=== PATIENT | female | born 1950 | race Caucasian/White ===

== ENCOUNTER → 2019-07-16 | Outpatient (CLI) | payer MEDICARE ==
--- NOTE | 2019-07-16 19:38 | MR ---
EXAMINATION TYPE: MR shoulder RT wo con DATE OF EXAM: 07/16/2019 COMPARISON: None HISTORY: Rt shoulder pain x 1 year, no trauma Multiplanar multiecho imaging of the right shoulder is performed with no contrast. The glenoid camryn appear intact. Subscapularis tendon appears intact. Biceps tendon is intact. There is thickening and abnormal increased signal throughout the large area of the supraspinatus tend on over the humeral head and at the greater tuberosity of the humerus. There is minor spurring at the AC joint without subacromial impingement. I see no focal bone destruct ion. There are small cystic changes at the insertion of the supraspinatus tendon on the greater tuber osity. On the T2 images there are numerous somewhat rounded high signal foci in the axilla. This could be mu ltiple varicose veins with slow flow. IMPRESSION: Full-thickness tear of the supraspinatus tendon without retraction. 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 Degenerative cyst formation and peritendon cystic changes at the greater tuberosity of the humerus. No fracture. Findings at the axilla are suggestive of multiple large varicose veins with slow flow. Axillary adeno josefina not excluded.
== END | disposition home or self-care (01) ==
LOC: RADMRIMAIN 15:32
PROVIDERS: ATTEND Orthopaedic Surgery
DX: M75.121 Complete rotator cuff tear or rupture of right shoulder, not specified as traumatic (principal); M19.011 Primary osteoarthritis, right shoulder

== ENCOUNTER → 2020-02-27 | Outpatient (CLI) | payer MEDICARE | END | disposition home or self-care (01) | LOC: LABWHC1 15:28 | PROVIDERS: ATTEND Family Medicine | DX: R50.9 Fever, unspecified (principal) | CPT/HCPCS: 87502; U0003; C9803 ==

== ENCOUNTER 2020-10-21 14:25 | Inpatient (IN) | payer MEDICARE ==
--- NOTE | 2020-10-21 15:16 | ED ---
General Adult HPI - General Chief complaint: Syncope Stated complaint: abd pain Time Seen by Provider: 10/21/20 15:02 Source: EMS Mode of arrival: EMS Limitations: altered mental status - History of Present Illness Initial comments: Is a 70-year-old female with a history of liver failure, interstitial lung disease, hypertension who presents emergent department for an episode of unresponsiveness. The patient resides at [facility] and was being brought over to her primary doctor's office by her nurse. The patient was reported at the doctor's office and had an episode where she became unresponsive. She was found on the ground. The patient eventually did come to and there are normal vital signs there however on arrival to the emergency department she was found to be severely hypotensive. Apparently the patient had an episode of emesis in route. The patient otherwise denies any acute complaints. She denies any chest pain or shortness of breath. No lightheadedness. No diarrhea. No dark or bloody stools. She initially complained of some abdominal discomfort however later when I repalpated her abdomen she stated that she did not have any pain. No dysuria or hematuria. No other complaints. - Related Data Home Medications Medication Instructions Recorded Confirmed Carvedilol [Coreg] 6.25 mg PO DAILY@0800 10/21/20 10/21/20 Ferrous Sulfate [Feosol] 325 mg PO DAILY@0800 10/21/20 10/21/20 Furosemide [Lasix] 40 mg PO BID@0600,1400 10/21/20 10/21/20 HYDROcodone/APAP 7.5-325MG [[place] 1 tab PO Q8H PRN 10/21/20 10/21/20 7.5-325] Ipratropium-Albuterol Nebulize 3 ml INHALATION RT-TID 10/21/20 10/21/20 [Duoneb 0.5 mg-3 mg/3 ml Soln] Lactose-Reduced Food [Ensure Plus] 120 ml PO TID@0600,0800,2100 10/21/20 10/21/20 Liquicel 30 ml PO BID@1200,1700 10/21/20 10/21/20 Maalox Plus Suspension 30 ml PO Q6H PRN 10/21/20 10/21/20 Magnesium Hydroxide [Milk of 7,200 mg PO Q48H PRN 10/21/20 10/21/20 Magnesia Concentrate] Ondansetron HCl [Zofran] 4 mg PO Q8H PRN 10/21/20 10/21/20 Pantoprazole Sodium [Protonix] 40 mg PO DAILY@0600 10/21/20 10/21/20 Rosuvastatin Calcium [Crestor] 5 mg PO HS 10/21/20 10/21/20 SILVER sulfADIAZINE Cream 1 applic TOPICAL BID 10/21/20 10/21/20 [Silvadene 1% Cream] Sennosides [Senokot] 17.2 mg PO HS 10/21/20 10/21/20 Spironolactone [Aldactone] 25 mg PO BID@0600,1400 10/21/20 10/21/20 Allergies Allergy/AdvReac Type Severity Reaction Status Date / Time amoxicillin trihydrate Allergy Vomiting Verified 10/21/20 16:12 [From Augmentin] erythromycin base Allergy Vomiting Verified 10/21/20 16:12 potassium clavulanate Allergy Vomiting Verified 10/21/20 16:12 [From Augmentin] Review of Systems ROS Statement: Those systems with pertinent positive or pertinent negative responses have been documented in the HPI. ROS Other: All systems not noted in ROS Statement are negative. Past Medical History Past Medical History: Asthma, Deep Vein Thrombosis (DVT), GERD/Reflux, Hyperten case Additional Past Medical History / Comment(s): SJORGEN'S SYN, gout, high d-dimers cat scans have always been negative for a PE, STATES "THEY DISAPPEAR BEFORE THEY ARE SEEN ON CT SCAN" arthritis, port wine birthmark ON LEFT ARM, STATES BLURRY VISION CHANDNI EYES POST CATARACT SX History of Any Multi-Drug Resistant Organisms: None Reported Past Surgical History: Heart Catheterization, Hysterectomy Additional Past Surgical History / Comment(s): CHANDNI CATARACTS Past Anesthesia/Blood Transfusion Reactions: No Reported Reaction Additional Past Anesthesia/Blood Transfusion Reaction / Comment(s): STATES HAD TROUBLE 06/11/14 POST OP HEART CATH "WOKE UP SWEATY AND COULDN'T TALK, HAD DOUBLE VISION" Past Psychological History: Anxiety Smoking Status: Smoker, current status unknown Past Alcohol Use History: None Reported Past Drug Use History: None Reported - Past Family History Father Family Medical History: Myocardial Infarction ([place]) General Exam - General Exam Comments Initial Comments: Constitutional: Awake alert Appears comfortable Head: Normocephalic atraumatic Eyes: no conjunctival injection No scleral icterus EOMI Neck: No JVD Supple Heart: Regular rate rhythm normal S1-S2 no murmurs Lungs: Clear to auscultation bilaterally No wheezing No rales Abdomen: Soft mildly distended, there seems to be some hepatomegaly nontender Extremities: Non edematous DP pulses intact Radial pulses intact Neuro: A&Ox3 No focal neurologic deficits Psych: Appropriate mood and affect Limitations: altered mental status Course Vital Signs 10/21/20 10/21/20 10/21/20 15:10 15:13 15:39 Temperature 96.8 F L Pulse Rate 70 72 75 Respiratory 16 16 16 Rate Blood Pressure 65/42 77/53 89/74 O2 Sat by Pulse 95 96 96 Oximetry 10/21/20 10/21/20 10/21/20 16:05 17:00 18:00 Temperature Pulse Rate 75 75 75 Respiratory 16 16 16 Rate Blood Pressure 93/57 72/52 90/61 O2 Sat by Pulse 97 97 97 Oximetry 10/21/20 10/21/20 18:33 19:25 Temperature 97.3 F L Pulse Rate 75 69 Respiratory 16 18 Rate Blood Pressure 97/63 92/59 O2 Sat by Pulse 97 98 Oximetry EKG Findings - EKG Comments: EKG Findings:: EKG showing no signs rhythm with a rate of 69. No abnormal ST 7 changes or T-wave inversions. QTC is 454. There is a first-degree AV block. No ectopy. Medical Decision Making - Medical Decision Making Is a 70-year-old female who presents emergency department for a syncopal episode. Patient was hypotensive on arrival however. Awake and alert and was not tachycardic. The patient was given 1 L of fluid up from which did improve her pressures however did go back down slightly. She was given another 500 mL bolus which improved her blood pressure until 90 systolic. The patient's heart rate is remained stable. She's been afebrile. There is no evidence for leukocytosis. She is chronically anemic and not any worse than normal. She does have evidence for dehydration with hyponatremia and increased creatinine and BUN. Chest x-ray showed possible pneumonia and thus the patient was started on antibiotics. Urinalysis was unremarkable. I suspect the patient's symptoms are more from dehydration hour she needs cardiac monitoring and also close monitoring for developing sepsis. At this time I doubt sepsis however. I spoke with Dr. Rodriguez who excepted the patient permission. She would like Dr. uDran on the case for the patient's history of liver failure. - Lab Data Result diagrams: 10/21/20 15:15 10/21/20 15:15 Lab Results 10/21/20 10/21/20 10/21/20 Range/Units 15:15 15:15 15:15 WBC 6.9 (3.8-10.6) k/uL RBC 3.28 L (3.80-5.40) m/uL Hgb 10.0 L (11.4-16.0) gm/dL Hct 30.7 L (34.0-46.0) % MCV 93.6 (80.0-100.0) fL MCH 30.4 (25.0-35.0) pg MCHC 32.5 (31.0-37.0) g/dL RDW 16.6 H (11.5-15.5) % Plt Count 343 (150-450) k/uL MPV 8.2 Neutrophils % 61 % Lymphocytes % 20 % Monocytes % 13 % Eosinophils % 1 % Basophils % 3 % Neutrophils # 4.2 (1.3-7.7) k/uL Lymphocytes # 1.4 (1.0-4.8) k/uL Monocytes # 0.9 (0-1.0) k/uL Eosinophils # 0.0 (0-0.7) k/uL Basophils # 0.2 (0-0.2) k/uL Manual Slide Review Performed Polychromasia Present Anisocytosis Slight Target Cells Present PT 11.1 (9.0-12.0) sec INR 1.1 (<1.2) APTT 28.5 (22.0-30.0) sec Sodium 121 L (137-145) mmol/L Potassium 5.6 H (3.5-5.1) mmol/L Chloride 95 L (98-107) mmol/L Carbon Dioxide 24 (22-30) mmol/L Anion Gap 2 mmol/L BUN 47 H (7-17) mg/dL Creatinine 2.28 H (0.52-1.04) mg/dL Est GFR (CKD-EPI)AfAm 24 (>60 ml/min/1.73 sqM) Est GFR (CKD-EPI)NonAf 21 (>60 ml/min/1.73 sqM) Glucose 104 H (74-99) mg/dL Lactic Ac Sepsis Rflx Plasma Lactic Acid Albar[place] (0.7-2.0) mmol/L Calcium 7.4 L (8.4-10.2) mg/dL Total Bilirubin 0.2 (0.2-1.3) mg/dL AST 45 H (14-36) U/L ALT 13 (4-34) U/L Alkaline Phosphatase 139 H (38-126) U/L Troponin I (0.000-0.034) ng/mL Total Protein 5.4 L (6.3-8.2) g/dL Albumin 1.7 L (3.5-5.0) g/dL Urine Color Urine Appearance (Clear) Urine pH (5.0-8.0) Ur Specific [place] (1.001-1.035) Urine Protein (Negative) Urine Glucose (UA) (Negative) Urine Ketones (Negative) Urine Blood (Negative) Urine Nitrite (Negative) Urine Bilirubin (Negative) Urine Urobilinogen (<2.0) mg/dL Ur Leukocyte Esterase (Negative) 10/21/20 10/21/20 10/21/20 Range/Units 15:15 15:15 15:45 WBC (3.8-10.6) k/uL RBC (3.80-5.40) m/uL Hgb (11.4-16.0) gm/dL Hct (34.0-46.0) % MCV (80.0-100.0) fL MCH (25.0-35.0) pg MCHC (31.0-37.0) g/dL RDW (11.5-15.5) % Plt Count (150-450) k/uL MPV Neutrophils % % Lymphocytes % % Monocytes % % Eosinophils % % Basophils % % Neutrophils # (1.3-7.7) k/uL Lymphocytes # (1.0-4.8) k/uL Monocytes # (0-1.0) k/uL Eosinophils # (0-0.7) k/uL Basophils # (0-0.2) k/uL Manual Slide Review Polychromasia Anisocytosis Target Cells PT (9.0-12.0) sec INR (<1.2) APTT (22.0-30.0) sec Sodium (137-145) mmol/L Potassium (3.5-5.1) mmol/L Chloride (98-107) mmol/L Carbon Dioxide (22-30) mmol/L Anion Gap mmol/L BUN (7-17) mg/dL Creatinine (0.52-1.04) mg/dL Est GFR (CKD-EPI)AfAm (>60 ml/min/1.73 sqM) Est GFR (CKD-EPI)NonAf (>60 ml/min/1.73 sqM) Glucose (74-99) mg/dL Lactic Ac Sepsis Rflx Y Plasma Lactic Acid [place] 2.5 H* (0.7-2.0) mmol/L Calcium (8.4-10.2) mg/dL Total Bilirubin (0.2-1.3) mg/dL AST (14-36) U/L ALT (4-34) U/L Alkaline Phosphatase (38-126) U/L Troponin I 0.020 (0.000-0.034) ng/mL Total Protein (6.3-8.2) g/dL Albumin (3.5-5.0) g/dL Urine Color Urine Appearance (Clear) Urine pH (5.0-8.0) Ur Specific [place] (1.001-1.035) Urine Protein (Negative) Urine Glucose (UA) (Negative) Urine Ketones (Negative) Urine Blood (Negative) Urine Nitrite (Negative) Urine Bilirubin (Negative) Urine Urobilinogen (<2.0) mg/dL Ur Leukocyte Esterase (Negative) 10/21/20 10/21/20 10/21/20 Range/Units 16:18 18:15 18:15 WBC (3.8-10.6) k/uL RBC (3.80-5.40) m/uL Hgb (11.4-16.0) gm/dL Hct (34.0-46.0) % MCV (80.0-100.0) fL MCH (25.0-35.0) pg MCHC (31.0-37.0) g/dL RDW (11.5-15.5) % Plt Count (150-450) k/uL MPV Neutrophils % % Lymphocytes % % Monocytes % % Eosinophils % % Basophils % % Neutrophils # (1.3-7.7) k/uL Lymphocytes # (1.0-4.8) k/uL Monocytes # (0-1.0) k/uL Eosinophils # (0-0.7) k/uL Basophils # (0-0.2) k/uL Manual Slide Review Polychromasia Anisocytosis Target Cells PT (9.0-12.0) sec INR (<1.2) APTT (22.0-30.0) sec Sodium (137-145) mmol/L Potassium (3.5-5.1) mmol/L Chloride (98-107) mmol/L Carbon Dioxide (22-30) mmol/L Anion Gap mmol/L BUN (7-17) mg/dL Creatinine (0.52-1.04) mg/dL Est GFR (CKD-EPI)AfAm (>60 ml/min/1.73 sqM) Est GFR (CKD-EPI)NonAf (>60 ml/min/1.73 sqM) Glucose (74-99) mg/dL Lactic Ac Sepsis Rflx Plasma Lactic Acid [place] 1.3 (0.7-2.0) mmol/L Calcium (8.4-10.2) mg/dL Total Bilirubin (0.2-1.3) mg/dL AST (14-36) U/L ALT (4-34) U/L Alkaline Phosphatase (38-126) U/L Troponin I <0.012 (0.000-0.034) ng/mL Total Protein (6.3-8.2) g/dL Albumin (3.5-5.0) g/dL Urine Color Yellow Urine Appearance Clear (Clear) Urine pH 5.0 (5.0-8.0) Ur Specific [place] 1.013 (1.001-1.035) Urine Protein Negative (Negative) Urine Glucose (UA) Negative (Negative) Urine Ketones Negative (Negative) Urine Blood Negative (Negative) Urine Nitrite Negative (Negative) Urine Bilirubin Negative (Negative) Urine Urobilinogen <2.0 (<2.0) mg/dL Ur Leukocyte Esterase Negative (Negative) Critical Care Time Critical Care Time: Yes Total Critical Care Time: 45 Critical Care Time: Critical care time was spent getting history from the patient and EMS. Examining the patient, ordering lab tests and treatments. Ordering radiographic studies. Reevaluation the patient after fluid boluses and other treatments. Interpreting labs and radiologic studies. Disposition Clinical Impression: Dehydration, KAELA (acute kidney injury), Hypotension, Pneumonia Disposition: ADMITTED IP TO THIS HOSP Condition: Serious Referrals: Lela Van MD [Primary Care Provider] - 1-2 days
[2020-10-21] MEDS: SODIUM CHLORIDE 0.9% 1,000 ML IV SCH (15:26)
[2020-10-21] MEDS: SODIUM CHLORIDE 0.9% 500 ML 500 ML IV SCH ×2 (15:26→17:29)
[2020-10-21 15:37] LABS: Albumin 1.7 g/dL (3.5-5.0); Calcium 7.4 mg/dL (8.4-10.2); INR 1.1 (<1.2); Partial Thromboplastin Time 28.5 sec (22.0-30.0); Potassium 5.6 mmol/L (3.5-5.1); Prothrombin Time 11.1 sec (9.0-12.0); Total Bilirubin 0.2 mg/dL (0.2-1.3); Total Protein 5.4 g/dL (6.3-8.2)
--- NOTE | 2020-10-21 15:48 | XR ---
EXAMINATION TYPE: XR chest 1V portable DATE OF EXAM: 10/21/2020 COMPARISON: Chest x-ray 06/07/2014 HISTORY: Hypotension TECHNIQUE: Single frontal view of the chest is obtained. FINDINGS: Patient is rotated. There is no evident pneumothorax. There is blunting the left costophre susy angle, obscured left hemidiaphragm. Cardiac mediastinal silhouette is within normal limits. Inter stitium is mildly increased. There are overlying leads. IMPRESSION: Possible lower lobe atelectasis versus interstitial edema, correlate to exclude pneumoni a, effusion may be present
[2020-10-21 15:52] LABS: Anisocytosis Slight; Basophils # (A) 0.2 k/uL (0-0.2); Basophils % (A) 3 %; Eosinophils % (A) 1 %; HCT 30.7 % (34.0-46.0); Lymphocytes # (A) 1.4 k/uL (1.0-4.8); Lymphocytes % (A) 20 %; MCH 30.4 pg (25.0-35.0); MCHC 32.5 g/dL (31.0-37.0); MCV 93.6 fL (80.0-100.0); Mean Platelet Volume 8.2; Monocytes # (A) 0.9 k/uL (0-1.0); Monocytes % (A) 13 %; Neutrophils # (A) 4.2 k/uL (1.3-7.7); Neutrophils % (A) 61 %; Platelet Count 343 k/uL (150-450); RBC 3.28 m/uL (3.80-5.40); RDW 16.6 % (11.5-15.5); WBC 6.9 k/uL (3.8-10.6)
[2020-10-21 16:06] LABS: Polychromasia Present; Target Cells Present
[2020-10-21 16:25] LABS: Appearance,Urine Clear (Clear); Bilirubin,Urine Negative (Negative); Blood,Urine Negative (Negative); Color,Urine Yellow; Glucose,Urine (UA) Negative (Negative); Ketones,Urine Negative (Negative); Leukocyte Esterase,Urine Negative (Negative); Nitrite,Urine Negative (Negative); Protein,Urine Negative (Negative); Specific Gravity,Urine 1.013 (1.001-1.035); Urobilinogen,Urine <2.0 mg/dL (<2.0)
[2020-10-21] MEDS ORDERED: SODIUM CHLORIDE 0.9% 500 ML 500 ML IV ONE (17:17)
[2020-10-21] MEDS ORDERED: cefTRIAXone IN SWFI 1,000 MG/10 ML SYRINGE IVP STA (18:25)
[2020-10-21] MEDS ORDERED: AZITHROMYCIN 500 MG in SODIUM CHLORIDE 0.9% 250 ML IVPB STA (18:25)
[2020-10-21] MEDS ORDERED: NALOXONE 0.4 MG/ML 1 ML VIAL IV PRN (19:34)
[2020-10-22] MEDS: SODIUM CHLORIDE 0.9% 1,000 ML IV SCH ×4 (01:09→22:52)
[2020-10-22] MEDS ORDERED: ONDANSETRON 4 MG TAB PO PRN (11:09)
[2020-10-22] MEDS ORDERED: MAG HYDROX/AL HYDROX/SIMETH 30 ML CUP PO PRN (11:09)
[2020-10-22] MEDS ORDERED: MAGNESIUM HYDROXIDE 2,400 MG/10 ML CUP PO PRN (11:09)
[2020-10-22] MEDS ORDERED: LIQUICEL PO SCH (12:00)
[2020-10-22] MEDS: IPRATROPIUM-ALBUTEROL 3 ML NEB INHALATION SCH ×2 (12:18→20:53)
[2020-10-22 12:49] LABS: AST 43 U/L (14-36); African American GFR (CKD) 37 (>60 ml/min/1.73 sqM); Albumin 1.7 g/dL (3.5-5.0); Albumin/Globulin Ratio 0.4; Alkaline Phosphatase 148 U/L (38-126); Anion Gap 4 mmol/L; Blood Urea Nitrogen 39 mg/dL (7-17); Calcium 7.1 mg/dL (8.4-10.2); Carbon Dioxide 20 mmol/L (22-30); Chloride 102 mmol/L (98-107); Globulin 3.8 g/dL; Glucose 79 mg/dL (74-99); Non-African American GFR(CKD) 32 (>60 ml/min/1.73 sqM); Sodium 126 mmol/L (137-145); Total Bilirubin 0.1 mg/dL (0.2-1.3); Total Protein 5.5 g/dL (6.3-8.2)
[2020-10-22 12:55] LABS: ALT 16 U/L (4-34)
--- NOTE | 2020-10-22 13:08 | P.HPIM ---
History of Present Illness H&P Date: 10/22/20 70 years old female patient of Dr. Vaughan with past medical history of gout, hypertension, Sjogren syndrome and suspected decompensated liver failure with the recurrent ascites seen almost monthly in the hospital. Her initial presentation was 04/2024 keep his amount of fluid remaining high-protein ascites. Patient was transferred to [facility] for further workup and underwent liver biopsy as well as diagnostic laparoscopy with biopsy of the peritumoral nodule which all came as negative. Malignancy was ruled out multiple times by cytology from patient's ascites fluid. She was hospitalized multiple times in June, July and has been requiring paracentesis almost 10-14 days. Patient is very well-known to the service and was last seen in the hospital on 09/14 underwent paracentesis on 09/15/ L were removed and patient was given some albumin. Patient was started on diuretic therapy and was sent to [facility]. Patient had a liver biopsy that suggestive fibrosis but no cirrhosis of liver. Multiple other etiology has been worked up and has come as negative. Patient's presentation is on assumed to be secondary to chronic liver disease. Patient was seen by Dr. Van outpatient and had a syncopal episode during her visit. She was sent to the ER for evaluation patient was found to be hypertensive. She had an episode of emesis in route. She denies any chest pain or shortness of breath. Vitals in the ER patient had a temp of 96.8 pulse 70 respiratory rate 16 blood pressure was 65/42. EKG was obtained that suggested first-degree AV block with no ectopy. No abdominal ST changes or T-wave inversions noted. Patient given 1-1/2 L of IV fluid with improvement of systolic pressures to the low 90s. Labs were reviewed patient has a WBC of 6.9 hemoglobin 10 which is s table, sodium 121 potassium 5.6 BUN 47 creatinine 2.28 chloride 95 bicarb 24 glucose 104 lactic acid was 2.5 troponin 0.0 2 repeat lactic acid after resuscitation is 1.3 urinalysis is negative for any infection. Chest x-ray suggestive of possible lower lobe infiltrate versus interstitial edema. Patient was seen in the ER today, denies any chest pain or shortness breath she does have some ongoing confusion would not be able to tell me whether she stays at home or at exact [facility] currently. Patient is a poor historian history obtained mostly from ER physician's note. On repeat assessment of patient's pressure, blood pressures improved 108/80 3 repeat Set pending from this morning. Patient has albumin of 1.7 ammonia less than 9. Covid was negative. Continue IV fluids at 1 30 mL/h patient's presentation appears to be related to a care in [facility]. Pneumonia appears unlikely to be chest x-ray could be obtained tomorrow. Stat labs including CBC CMP will be obtained. Gastroenterology co nsult placed. Patient's last paracentesis was 3 weeks ago. Review of Systems Constitutional: Denies chills, Denies fever, increased weakness Eyes: denies decreased vision, denies diplopia, denies discharge, denies pain Ears: deny: decreased hearing Ears, nose, mouth and throat: Denies dental pain, Denies headache, Denies nasal discharge, Denies nose pain Cardiovascular: Denies chest pain, Denies decreased exercise tolerance, Denies edema, Denies high blood pressure, Denies irregular heart beat, Denies palpitations, Denies paroxysmal nocturnal dyspnea, Denies rapid heart beat, Denies shortness of breath Respiratory: Denies congestion, Denies cough, Denies cough with sputum, Denies dyspnea, Denies home oxygen, Denies wheezing Gastrointestinal: Denies abdominal pain, Denies change in bowel habits, Denies coffee ground emesis, Denies early satiety, Denies excessive gas, Denies heartburn, Denies hematemesis, Denies hematochezia, endorses loss of appetite, Denies nausea, Denies vomiting endorses abdominal distention Genitourinary: Denies dysuria, Denies flank pain, Denies kidney stones, Denies menorrhagia, Denies urgency, Denies urinary frequency Musculoskeletal: Denies gait dysfunction, Denies limitation of motion, Denies morning stiffness, Denies muscle cramps Integumentary: Congenital rash, Denies wounds, Denies brittle nails, Denies change in hair/nails, Denies darkening of skin Neurological: Endorses balance difficulties, Denies change in speech, Denies double vision, Denies gait dysfunction, Denies loss of vision, Denies motor disturbance, Denies numbness, Denies paralysis, Denies paresthesias, Denies seizures Psychiatric: Denies anxiety, Denies depression Endocrine: Denies excessive sweating, Denies excessive thirst, Denies high blood sugars, Denies palpitations Hematologic/Lymphatic: Denies easy bruising, Denies lymphadenopathy Past Medical History Past Medical History: Asthma, Deep Vein Thrombosis (DVT), GERD/Reflux, Hypertension Additional Past Medical History / Comment(s): SJORGEN'S SYN, gout, high d-dimers cat scans have always been negative for a PE, STATES "THEY DISAPPEAR BEFORE THEY ARE SEEN ON CT SCAN" arthritis, port wine birthmark ON LEFT ARM, STATES BLURRY VISION CHANDNI EYES POST CATARACT SX History of Any Multi-Drug Resistant Organisms: None Reported Past Surgical History: Heart Catheterization, Hysterectomy Additional Past Surgical History / Comment(s): CHANDNI CATARACTS Past Anesthesia/Blood Transfusion Reactions: No Reported Reaction Additional Past Anesthesia/Blood Transfusion Reaction / Comment(s): STATES HAD TROUBLE 06/11/14 POST OP HEART CATH "WOKE UP SWEATY AND COULDN'T TALK, HAD DOUBLE VISION" Past Psychological History: Anxiety Smoking Status: Smoker, current status unknown Past Alcohol Use History: None Reported Past Drug Use History: None Reported - Past Family History Father Family Medical History: Myocardial Infarction ([place]) Medications and Allergies Home Medications Medication Instructions Recorded Confirmed Type Carvedilol [Coreg] 6.25 mg PO DAILY@0800 10/21/20 10/21/20 History Ferrous Sulfate [Feosol] 325 mg PO DAILY@0800 10/21/20 10/21/20 History Furosemide [Lasix] 40 mg PO BID@0600,1400 10/21/20 10/21/20 History HYDROcodone/APAP 7.5-325MG [Piru 1 tab PO Q8H PRN 10/21/20 10/21/20 History 7.5-325] Ipratropium-Albuterol Nebulize 3 ml INHALATION RT-TID 10/21/20 10/21/20 History [Duoneb 0.5 mg-3 mg/3 ml Soln] Lactose-Reduced Food [Ensure Plus] 120 ml PO TID@0600,0800,2100 10/21/20 10/21/20 History Liquicel 30 ml PO BID@1200,1700 10/21/20 10/21/20 History Maalox Plus Suspension 30 ml PO Q6H PRN 10/21/20 10/21/20 History Magnesium Hydroxide [Milk of 7,200 mg PO Q48H PRN 10/21/20 10/21/20 History Magnesia Concentrate] Ondansetron HCl [Zofran] 4 mg PO Q8H PRN 10/21/20 10/21/20 History Pantoprazole Sodium [Protonix] 40 mg PO DAILY@0600 10/21/20 10/21/20 History Rosuvastatin Calcium [Crestor] 5 mg PO HS 10/21/20 10/21/20 History SILVER sulfADIAZINE Cream 1 applic TOPICAL BID 10/21/20 10/21/20 History [Silvadene 1% Cream] Sennosides [Senokot] 17.2 mg PO HS 10/21/20 10/21/20 History Spironolactone [Aldactone] 25 mg PO BID@0600,1400 10/21/20 10/21/20 History Allergies Allergy/AdvReac Type Severity Reaction Status Date / Time amoxicillin trihydrate Allergy Vomiting Verified 10/21/20 16:12 [From Augmentin] erythromycin base Allergy Vomiting Verified 10/21/20 16:12 potassium clavulanate Allergy Vomiting Verified 10/21/20 16:12 [From Augmentin] Physical Exam Vitals: Vital Signs Temp Pulse Resp BP Pulse Ox 10/22/20 12:29 90 18 10/22/20 12:18 90 18 10/22/20 12:06 90 18 108/83 96 10/22/20 10:00 87 181 H 100/67 97 10/22/20 06:25 78 16 90/65 96 10/22/20 05:01 78 16 94/63 100 10/22/20 04:10 72 16 90/60 98 10/22/20 04:05 78/54 10/22/20 01:20 78 16 104/68 99 10/22/20 00:55 80 16 92/61 100 10/21/20 20:56 92/60 10/21/20 19:25 97.3 F L 69 18 92/59 98 10/21/20 18:33 75 16 97/63 97 10/21/20 18:00 75 16 90/61 97 10/21/20 17:00 75 16 72/52 97 10/21/20 16:05 75 16 93/57 97 10/21/20 15:39 75 16 89/74 96 10/21/20 15:13 72 16 77/53 96 10/21/20 15:10 96.8 F L 70 16 65/42 95 Intake and Output 10/21/20 10/22/20 10/22/20 22:59 06:59 14:59 Output Total 185 Balance -185 Output: Urine 185 Straight 185 Other: Weight 54.431 kg - Constitutional General appearance: cooperative, no acute distress, cachectic-appearing - EENT Eyes: anicteric sclerae, PERRLA, normal appearance ENT: hearing grossly normal - Neck Neck: no lymphadenopathy, normal ROM, no other, no rigidity, no stridor, no thyromegaly - Respiratory Respiratory: bilateral: CTA, negative: diminished, dullness, rales, rhonchi - Cardiovascular Rhythm: regular Heart sounds: normal: S1, S2 Abnormal Heart Sounds: no systolic murmur, no diastolic murmur, no rub, no S3 Gallop, no S4 Gallop, no click, 2+ pitting edema with flakiness involving the lower extremity - Gastrointestinal General gastrointestinal: normal bowel sounds, soft nontender with abdominal distention with bulging flanks noted. Positive for precaution. Shifting dullness is - Integumentary Integumentary: Port-wine rash involving the left arm present - Neurologic Neurologic: Oriented 3, alert appears weak - Musculoskeletal Musculoskeletal: strength equal bilaterally - Psychiatric Psychiatric: A&O x's 3, appropriate affect Results CBC & Chem 7: 10/21/20 15:15 10/21/20 15:15 Labs: Abnormal Lab Results - Last 24 Hours (Table) 10/21/20 10/21/20 10/21/20 Range/Units 15:15 15:15 15:15 RBC 3.28 L (3.80-5.40) m/uL Hgb 10.0 L (11.4-16.0) gm/dL Hct 30.7 L (34.0-46.0) % RDW 16.6 H (11.5-15.5) % Sodium 121 L (137-145) mmol/L Potassium 5.6 H (3.5-5.1) mmol/L Chloride 95 L (98-107) mmol/L BUN 47 H (7-17) mg/dL Creatinine 2.28 H (0.52-1.04) mg/dL Glucose 104 H (74-99) mg/dL Plasma Lactic Acid Albaro 2.5 H* (0.7-2.0) mmol/L Calcium 7.4 L (8.4-10.2) mg/dL AST 45 H (14-36) U/L Alkaline Phosphatase 139 H (38-126) U/L Total Protein 5.4 L (6.3-8.2) g/dL Albumin 1.7 L (3.5-5.0) g/dL Thrombosis Risk Factor Assmnt - DVT/VTE Prophylaxis DVT/VTE Prophylaxis: Pharmacologic Prophylaxis ordered Assessment and Plan Plan: #1 hypotension likely secondary to hypovolemic shock from volume deficit. Can you IV fluids at 1 30 mL/h. Hold diuretics. #2 acute kidney injury secondary to ATN over chronic kidney disease stage III hold Aldactone hold Lasix. Baseline creatinines 1.6 Continue IV fluids at 1 30 mL per hour. Hepatorenal syndrome is a possibility. Repeat CMP ordered. Avoid nephrotoxic agents #3 hyponatremia secondary to volume deficit. Continue IV fluids at this point. Urine sodium and urine osmolarity can be ordered. #4 hyperkalemia secondary to acute kidney injury. Repeat CMP ordered. #5 decompensated liver failure with recurrent ascitis likely secondary to chronic liver disease. Liver biopsy and peritoneal biopsy has been negative. Cytology negative. TB negative. SAAG less than 1.1 with high protein ascites. Hold Aldactone and Lasix. Pain management with Piru. #6. Recurrent ascites. Last paracentesis 3 weeks ago. Patient does have peritoneal fluid but will hold paracentesis until patient is distended. #7 atherosclerotic heart disease continue Coreg along with atorvastatin. 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 Continue daily CBC. 10 chronic depression not on any medication currently #11 constipation hold stool softener at this moment. #12 CODE STATUS full code #13 GI prophylaxis on Protonix #14 DVT prophylaxis with heparin every 12 #15 disposition patient needs to be in the hospital at least 1-2 inpatient nights
[2020-10-22 13:09] LABS: Anisocytosis Slight; HCT 35.3 % (34.0-46.0); HGB 10.7 gm/dL (11.4-16.0); Hypochromasia Moderate; MCH 29.7 pg (25.0-35.0); MCHC 30.3 g/dL (31.0-37.0); MCV 98.2 fL (80.0-100.0); Macrocytosis Slight; Mean Platelet Volume 8.4; Platelet Count 363 k/uL (150-450); RBC 3.59 m/uL (3.80-5.40); WBC 6.4 k/uL (3.8-10.6)
[2020-10-22] MEDS: ATORVASTATIN 10 MG TAB PO SCH (19:56)
[2020-10-22] MEDS ORDERED: NON FORMULARY DRUG (Lactose-Reduced Food [Ensure Plus] 237 ML Liquid) PO SCH (21:00)
--- NOTE | 2020-10-22 22:50 | P.CONS ---
History of Present Illness - Reason for Consult Consult date: 10/22/20 Ascites Requesting physician: Funmi Fischer - Chief Complaint Altered mental status - History of Present Illness 70-year-old female with a medical history significant for gout, hypertension, Sjogren syndrome and refractory ascites suspected to be secondary to decompensated cryptogenic cirrhosis who presented to the hospital due to altered mental status. The patient has had extensive evaluation in the past since her initial presentation 04/2020 when she presented with fluid overload and paracentesis was significant for high-protein ascites. Previous workup has been negative for any evidence of malignancy including on cytology from ascitic fluid. On initial evaluation she was transferred to [facility] workup included liver biopsy as well as laparoscopy with biopsy of a peritoneal nodule which was negative at that time and then on repeat biopsy later with the surgical service locally. She has been requiring paracentesis every 10-14 days and has been initiated on diuretic therapy with Lasix 40 mg twice daily and Aldactone 25 mg twice daily. Prior liver biopsy was suggestive of fibrosis without evidence of cirrhosis however patient has been receiving treatment for suspected cirrhosis of liver. On current presentation the patient was sent to [facility] ER for evaluation of altered mentation and hypotension. She was found to be hyponatremic on presentation with a sodium of 121 with a creatinine of 2.28 chest x-ray was suggestive of possible lower lobe infiltrate versus pleural effusion. Patient currently denies any fevers or chills. She is receiving broad-spectrum antibiotic therapy. Last paracentesis was 3 weeks ago. Review of Systems REVIEW OF SYSTEMS: CONSTITUTIONAL: Denies any fevers, chills, or fatigue but does report some weekend and association with fluid overload. CARDIOVASCULAR: Denies any chest pain, palpitations high or low blood pressures RESPIRATORY: Denies any shortness of breath, hemoptysis or cough. GENITOURINARY: No dysuria or hematuria. MUSCULOSKELETAL: No weakness reported. SKIN: Denies any new rashes or lesions, jaundice or pallor. PSYCHIATRIC: Denies any depression or anxiety. NEUROLOGY: Denies headache, denies any new focal deficits. EARS/NOSE/THROAT: No recent hearing change, congestion, nasal discharge or sore throat. EYES: No pain in eyes, discharge or change in vision. GASTROINTESTINAL: As per HPI. Past Medical History Past Medical History: Asthma, Deep Vein Thrombosis (DVT), GERD/Reflux, Hyperlipidemia, Hypertension, Osteoarthritis (OA) Additional Past Medical History / Comment(s): Sjorgen's syndrome, sicca syndrome with lung involvement, chronic hepatic failure/ascities with multiple paracentesis/worked up at [facility], abdominal pain, gout, past elevated Ddimer with negative cat scans, ASHD, iron anemia, constipation History of Any Multi-Drug Resistant Organisms: None Reported Past Surgical History: Heart Catheterization, Hysterectomy, Orthopedic Surgery Additional Past Surgical History / Comment(s): Liver bx/diagnostic laparoscopy peritumoral nodule bx both benign, excision gouty deposit 4th R toe, bilateral cataract removals Past Anesthesia/Blood Transfusion Reactions: No Reported Reaction Additional Past Anesthesia/Blood Transfusion Reaction / Comm: Post cath woke diaphoretic with vision change and unable to speak. Increased anxiety prior to surgery. Smoking Status: Former smoker - Past Family History Father Family Medical History: Myocardial Infarction ([place]) Medications and Allergies Home Medications Medication Instructions Recorded Confirmed Type Carvedilol [Coreg] 6.25 mg PO DAILY@0800 10/21/20 10/21/20 History Ferrous Sulfate [Feosol] 325 mg PO DAILY@0800 10/21/20 10/21/20 History Furosemide [Lasix] 40 mg PO BID@0600,1400 10/21/20 10/21/20 History HYDROcodone/APAP 7.5-325MG [Avinger 1 tab PO Q8H PRN 10/21/20 10/21/20 History 7.5-325] Ipratropium-Albuterol Nebulize 3 ml INHALATION RT-TID 10/21/20 10/21/20 History [Duoneb 0.5 mg-3 mg/3 ml Soln] Lactose-Reduced Food [Ensure Plus] 120 ml PO TID@0600,0800,2100 10/21/20 10/21/20 History Liquicel 30 ml PO BID@1200,1700 /06/1210/21/20 History Maalox Plus Suspension 30 ml PO Q6H PRN 10/21/20 10/21/20 History Magnesium Hydroxide [Milk of 7,200 mg PO Q48H PRN 10/21/20 10/21/20 History Magnesia Concentrate] Ondansetron HCl [Zofran] 4 mg PO Q8H PRN 10/21/20 10/21/20 History Pantoprazole Sodium [Protonix] 40 mg PO DAILY@0600 10/21/20 10/21/20 History Rosuvastatin Calcium [Crestor] 5 mg PO HS 10/21/20 10/21/20 History SILVER sulfADIAZINE Cream 1 applic TOPICAL BID 10/21/20 10/21/20 History [Silvadene 1% Cream] Sennosides [Senokot] 17.2 mg PO HS 10/21/20 10/21/20 History Spironolactone [Aldactone] 25 mg PO BID@0600,1400 10/21/20 10/21/20 History Allergies Allergy/AdvReac Type Severity Reaction Status Date / Time amoxicillin trihydrate Allergy Vomiting Verified 10/21/20 16:12 [From Augmentin] erythromycin base Allergy Vomiting Verified 10/21/20 16:12 potassium clavulanate Allergy Vomiting Verified 10/21/20 16:12 [From Augmentin] Physical Exam Vitals: Vital Signs Temp Pulse Resp BP Pulse Ox 10/22/20 16:00 98.0 F 91 16 118/67 98 10/22/20 12:29 90 18 10/22/20 12:18 90 18 10/22/20 12:06 90 18 108/83 96 10/22/20 10:00 87 181 H 100/67 97 10/22/20 06:25 78 16 90/65 96 10/22/20 05:01 78 16 94/63 100 10/22/20 04:10 72 16 90/60 98 10/22/20 04:05 78/54 10/22/20 01:20 78 16 104/68 99 10/22/20 00:55 80 16 92/61 100 10/21/20 20:56 92/60 10/21/20 19:25 97.3 F L 69 18 92/59 98 10/21/20 18:33 75 16 97/63 97 Intake and Output 10/22/20 10/22/20 10/22/20 06:59 14:59 22:59 Other: Weight 54.431 kg On physical examination, patient appears comfortable in no apparent distress. HEAD: Normocephalic, atraumatic. EYES: No scleral icterus. No conjunctival injection. MOUTH: No lesions, tongue midline. NECK: Trachea midline, no gross abnormalities. CHEST: Decreased air entry in all lung jenkins. HEART: S1-S2 appreciated. ABDOMEN: Soft, moderately distended. Bowel sounds are positive. No organomegaly. No guarding or rigidity. EXTREMITIES: Bilateral pedal edema. SKIN: No rashes, no jaundice. NEUROLOGIC: Alert and oriented person and place. No focal deficits. Results CBC & Chem 7: 10/22/20 11:55 10/22/20 11:55 Labs: Abnormal Lab Results - Last 24 Hours (Table) 10/22/20 10/22/20 Range/Units 11:55 11:55 RBC 3.59 L (3.80-5.40) m/uL Hgb 10.7 L (11.4-16.0) gm/dL MCHC 30.3 L (31.0-37.0) g/dL RDW 17.0 H (11.5-15.5) % Sodium 126 L (137-145) mmol/L Carbon Dioxide 20 L (22-30) mmol/L BUN 39 H (7-17) mg/dL Creatinine 1.62 H (0.52-1.04) mg/dL Calcium 7.1 L (8.4-10.2) mg/dL Total Bilirubin 0.1 L (0.2-1.3) mg/dL AST 43 H (14-36) U/L Alkaline Phosphatase 148 H (38-126) U/L Total Protein 5.5 L (6.3-8.2) g/dL Albumin 1.7 L (3.5-5.0) g/dL Chest x-ray: report reviewed Assessment and Plan (1) Ascites Narrative/Plan: 70-year-old female with multiple medical comorbidities including refractory ascites requiring paracentesis every 10-14 days since initial presentation in 2019. Extensive evaluation including cytology performed on ascites, biopsy of peritoneal nodule negative for malignant process. Patient has had a low SAAG, high-protein ascites and evidence of fibrosis on liver biopsy not consistent with cirrhosis, however decompensated liver disease as been suspected and the patient has been treated with diuretic therapy. Unclear etiology of altered mental status may be related to hyponatremia, intravascular volume depletion, would recommend paracentesis with fluid studies to rule out SBP, or may be secondary to another process. Current Visit: Yes Status: Acute Code(s): R18.8 - OTHER ASCITES SNOMED Code(s): 880212334 (2) Altered mental status Current Visit: Yes Status: Acute Code(s): R41.82 - ALTERED MENTAL STATUS, UNSPECIFIED SNOMED Code(s): 842395195 (3) KAELA (acute kidney injury) Current Visit: Yes Status: Acute Code(s): N17.9 - ACUTE KIDNEY FAILURE, UNSPECIFIED SNOMED Code(s): 41268790 (4) Hypotension Current Visit: Yes Status: Acute Code(s): I95.9 - HYPOTENSION, UNSPECIFIED SNOMED Code(s): 81803268 Plan: Supportive care Okay for diet as tolerated Diuretic therapy currently being held in the setting of acute kidney injury, patient is on home Lasix and Aldactone Ammonia level ordered and within normal limits making encephalopathy less likely as a cause of her altered mental status Blood pressure currently improved but may be a candidate for Midodrine therapy if hypotension recurs on initiation of diuretic therapy May benefit from nephrology consultation given hyponatremia, acute kidney injury and hypotension for further diuretic management Recommendations I'll consult for paracentesis with fluid studies to rule out SPP Continue broad-spectrum antibiotic therapy Thank you for allowing us to be to speak in the care of the patient
[2020-10-23] MEDS: SODIUM CHLORIDE 0.9% 1,000 ML IV SCH ×2 (01:58→11:58)
[2020-10-23] MEDS: HYDROcodone/APAP 7.5-325MG 1 EACH TAB PO PRN ×2 (02:49→21:17)
[2020-10-23] MEDS: PANTOPRAZOLE 40 MG TABLET PO SCH (05:41)
[2020-10-23 07:02] LABS: ALT 9 U/L (4-34); AST 38 U/L (14-36); African American GFR (CKD) 43 (>60 ml/min/1.73 sqM); Albumin 1.6 g/dL (3.5-5.0); Albumin/Globulin Ratio 0.5; Alkaline Phosphatase 133 U/L (38-126); Anion Gap 3 mmol/L; Blood Urea Nitrogen 37 mg/dL (7-17); Calcium 7.1 mg/dL (8.4-10.2); Carbon Dioxide 19 mmol/L (22-30); Chloride 107 mmol/L (98-107); Globulin 3.5 g/dL; Non-African American GFR(CKD) 37 (>60 ml/min/1.73 sqM); Potassium 4.7 mmol/L (3.5-5.1); Sodium 129 mmol/L (137-145); Total Bilirubin 0.1 mg/dL (0.2-1.3); Total Protein 5.1 g/dL (6.3-8.2)
[2020-10-23 07:04] LABS: Glucose 41 mg/dL (74-99)
[2020-10-23 07:32] LABS: Glucose,Whole Blood 49 mg/dL (75-99)
[2020-10-23 08:15] LABS: Glucose,Whole Blood 72 mg/dL (75-99)
[2020-10-23] MEDS: FERROUS SULFATE 325 MG TAB PO SCH (08:47)
[2020-10-23] MEDS: IPRATROPIUM-ALBUTEROL 3 ML NEB INHALATION SCH ×3 (08:55→20:27)
[2020-10-23 09:32] LABS: HCT 29.4 % (37.2-46.3); HGB 9.5 g/dL (12.0-15.0); MCH 30.2 pg (27.0-32.0); MCHC 32.3 g/dL (32.0-37.0); MCV 93.3 fL (80.0-97.0); Mean Platelet Volume 11.1 fL (9.5-12.2); Platelet Count 326 X 10*3/uL (140-440); RBC 3.15 X 10*6/uL (4.10-5.20); RDW 18.7 % (11.5-14.5); WBC 8.05 X 10*3/uL (4.50-10.00)
--- NOTE | 2020-10-23 11:15 | P.PN ---
Subjective Progress Note Date: 10/23/20 HISTORY OF PRESENT ILLNESS 70 years old female patient of Dr. Vaughan with past medical history of gout, hypertension, Sjogren syndrome and suspected decompensated liver failure with the recurrent ascites seen almost monthly in the hospital. Her initial presentation was 04/2024 keep his amount of fluid remaining high-protein ascites. Patient was transferred to [facility] for further workup and underwent liver biopsy as well as diagnostic laparoscopy with biopsy of the peritumoral nodule which all came as negative. Malignancy was ruled out multiple times by cytology from patient's ascites fluid. She was hospitalized multiple times in June, July and has been requiring paracentesis almost 10-14 days. Patient is very well-known to the service and was last seen in the hospital on 09/14 underwent paracentesis on 09/15/ L were removed and patient was given some albumin. Patient was started on diuretic therapy and was sent to [facility]. Patient had a liver biopsy that suggestive fibrosis but no cirrhosis of liver. Multiple other etiology has been worked up and has come as negative. Patient's presentation is on assumed to be secondary to chronic liver disease. Patient was seen by Dr. Van outpatient and had a syncopal episode during her visit. She was sent to the ER for evaluation patient was found to be hypertensive. She had an episode of emesis in route. She denies any chest pain or shortness of breath. Vitals in the ER patient had a temp of 96.8 pulse 70 respiratory rate 16 blood pressure was 65/42. EKG was obtained that suggested first-degree AV block with no ectopy. No abdominal ST changes or T-wave inversions noted. Patient given 1-1/2 L of IV fluid with improvement of systolic pressures to the low 90s. Labs were reviewed patient has a WBC of 6.9 hemoglobin 10 which is stable, sodium 121 potassium 5.6 BUN 47 creatinine 2.28 chloride 95 bicarb 24 glucose 104 lactic acid was 2.5 troponin 0.0 2 repeat lactic acid after resus citation is 1.3 urinalysis is negative for any infection. Chest x-ray suggestive of possible lower lobe infiltrate versus interstitial edema. Patient was seen in the ER today, denies any chest pain or shortness breath she does have some ongoing confusion would not be able to tell me whether she stays at home or at exact [facility] currently. Patient is a poor historian history obtained mostly from ER physician's note. On repeat assessment of patient's pressure, blood pressures improved 108/80 3 repeat Set pending from this morning. Patient has albumin of 1.7 ammonia less than 9. Covid was negative. Continue IV fluids at 1 30 mL/h patient's presentation appears to be related to a care in [facility]. Pneumonia appears unlikely to be chest x-ray could be obtained tomorrow. Stat labs including CBC CMP will be obtained. Gastroenterology consult placed. Patient's last paracentesis was 3 weeks ago. 10/23: Patient is seen today in follow-up. She has been seen by GI with recommendations for diet, midodrine for hypotension, possible nephrology consult for hyponatremia which is improving and paracentesis. We will add in paracentesis for interventional radiology. Patient is not currently on antibiotics. Repeat blood work reveals WBC 8.05. Hemoglobin 9.5, platelet count 326. Sodium 129, potassium 4.7, chloride 107, CO2 19, BUN 37 creatinine 1.43. Blood sugar this morning 41. Patient is not on antidiabetic medications. Calcium 7.1, total bilirubin 0.1, AST 38, ALT 9, alkaline phosphatase 133. Cultures no growth after 24 hours. A chest x-ray will be ordered to check for pneumonia. Patient is stating that she doesn't feel any better today. She states she feels terrible. She continues to have nausea and she feels that her belly is bigger and needs to have a paracentesis. REVEIW OF SYSTEMS Constitutional: No fever, no chills, no night sweats. No weight change. Reports weakness, Reports fatigue Reports lethargy. No daytime sleepiness. EENT: No headache. No blurred vision or double vision, no loss of vision. No loss of Hearing, no ringing in the ears, no dizziness. No nasal drainage or congestion. No epistaxis. No sore throat. Lungs: No shortness of breath, cough, no sputum production. No wheezing. Cardiovascular: No chest pain, no lower extremity edema. No palpitations. No paroxysmal nocturnal dyspnea. No orthopnea. No lightheadedness or dizziness. No syncopal episodes. Abdominal: No abdominal pain. No nausea, vomiting. No diarrhea. No constipation. No bloody or tarry stools.. No loss of appetite. Genitourinary: No dysuria, increased frequency, urgency. No urinary retention. Musculoskeletal: No myalgias. Reports muscle weakness, Reports gait dysfunction, no frequent falls. No back pain. No neck pain. Integumentary: No wounds, congenital rash. No unusual bruising. No change in hair or nails. Neurologic: No aphasia. No facial droop. No change in mentation. No head injury. No headache. No paralysis. No paresthesia. Psychiatric: No depression. No anxiety. No mood swings. Endocrine: No abnormal blood sugars. PHYSICAL EXAMINATION Gen: This is a 70-year-old female patient. She is resting in bed and appears to be comfortable at rest. HEENT: Head is atraumatic, normocephalic. Pupils equal, round. Sclerae is anicteric. NECK: Supple. No JVD. No lymphadenopathy. No thyromegaly. LUNGS: Clear to auscultation. No wheezes or rhonchi. No intercostal retractions. HEART: Regular rate and rhythm. No murmur. ABDOMEN: Positive ascites increased distention from yesterday Soft. Bowel sounds are present. No masses. No tenderness. EXTREMITIES: No pedal edema. No calf tenderness. port wine rash to the left arm. NEUROLOGICAL: Patient is awake, alert and oriented x3. Cranial nerves 2 through 12 are grossly intact. Generalized weakness. ASSESSMENT AND PLAN #1 hypotension likely secondary to hypovolemic shock from volume deficit. Continue IV fluids decreased to 75 mL per hour. Hold diuretics. Midodrine 5 mg 3 times daily added. #2 acute kidney injury secondary to ATN over chronic kidney disease stage III hold Aldactone hold Lasix. Baseline creatinines 1.6 Continue IV fluids at 75 mL per hour. Hepatorenal syndrome is a possibility. Repeat CMP ordered. Avoid nephrotoxic agents #3 hyponatremia secondary to volume deficit. Continue IV fluids at this point. Urine sodium and urine osmolarity can be ordered. #4 hyperkalemia secondary to acute kidney injury. Repeat CMP ordered. #5 decompensated liver failure with recurrent ascitis likely secondary to chronic liver disease. Liver biopsy and peritoneal biopsy has been negative. Cytology negative. TB negative. SAAG less than 1.1 with high protein ascites. Hold Aldactone and Lasix. Pain management with [facility]. GI consult appreciated. Diagnostic/therapeutic paracentesis ordered. #6. Recurrent ascites. Last paracentesis 3 weeks ago. Patient does have peritoneal fluid but will hold paracentesis until patient is distended. #7 atherosclerotic heart disease continue Coreg along with atorvastatin. 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 Continue daily CBC. 10 recurrent depression not on any medication currently #11 constipation hold stool softener at this moment. #12 CODE STATUS full code #13 GI prophylaxis on Protonix #14 DVT prophylaxis with heparin every 12 DISCHARGE PLAN Return to [facility]. Patient has legal guardian. Impression and plan of care have been directed as dictated by the signing physician. Kenisha Lew nurse practitioner acting as scribe for signing physician. Objective - Vital Signs Vital signs: Vital Signs Temp 97.7 F 10/23/20 08:00 Pulse 78 10/23/20 08:00 Resp 16 10/23/20 08:00 BP 99/68 10/23/20 08:00 Pulse Ox 93 L 10/23/20 08:00 Intake & Output 10/22/20 10/23/20 10/23/20 18:59 06:59 18:59 Output Total 300 300 Balance -300 -300 Weight 54.431 kg Output: Urine 300 300 - Labs CBC & Chem 7: 10/23/20 05:31 10/23/20 05:31 Labs: Abnormal Lab Results - Last 24 Hours (Table) 10/22/20 10/22/20 10/23/20 Range/Units 11:55 11:55 05:31 RBC 3.59 L (3.80-5.40) m/uL Hgb 10.7 L (11.4-16.0) gm/dL MCHC 30.3 L (31.0-37.0) g/dL RDW 17.0 H (11.5-15.5) % Sodium 126 L 129 L (137-145) mmol/L Carbon Dioxide 20 L 19 L (22-30) mmol/L BUN 39 H 37 H (7-17) mg/dL Creatinine 1.62 H 1.43 H (0.52-1.04) mg/dL Glucose 41 L* (74-99) mg/dL POC Glucose (mg/dL) (75-99) mg/dL Calcium 7.1 L 7.1 L (8.4-10.2) mg/dL Total Bilirubin 0.1 L 0.1 L (0.2-1.3) mg/dL AST 43 H 38 H (14-36) U/L Alkaline Phosphatase 148 H 133 H (38-126) U/L Total Protein 5.5 L 5.1 L (6.3-8.2) g/dL Albumin 1.7 L 1.6 L (3.5-5.0) g/dL 10/23/20 10/23/20 Range/Units 07:22 08:13 RBC (3.80-5.40) m/uL Hgb (11.4-16.0) gm/dL MCHC (31.0-37.0) g/dL RDW (11.5-15.5) % Sodium (137-145) mmol/L Carbon Dioxide (22-30) mmol/L BUN (7-17) mg/dL Creatinine (0.52-1.04) mg/dL Glucose (74-99) mg/dL POC Glucose (mg/dL) 49 L 72 L (75-99) mg/dL Calcium (8.4-10.2) mg/dL Total Bilirubin (0.2-1.3) mg/dL AST (14-36) U/L Alkaline Phosphatase (38-126) U/L Total Protein (6.3-8.2) g/dL Albumin (3.5-5.0) g/dL Microbiology - Last 24 Hours (Table) 10/21/20 17:45 Blood Culture - Preliminary Blood No Growth after 24 hours
[2020-10-23 11:17] LABS: Glucose,Whole Blood 64 mg/dL (75-99)
--- NOTE | 2020-10-23 11:25 | XR ---
EXAMINATION TYPE: XR chest 1V portable DATE OF EXAM: 10/23/2020 COMPARISON: 10/21/2020 HISTORY: Abnormal x-ray TECHNIQUE: Single frontal view of the chest is obtained. FINDINGS: Hyperinflation compatible COPD. Bibasilar infiltrate and small effusion. Heart size stable . Mild prominence of the central interstitium. No pneumothorax. Diffuse osteopenia and curvature of t he spine. IMPRESSION: 1. Bilateral infiltrate and pleural effusion. Mild venous congestion in the differential diagnosis. 2. COPD.
[2020-10-23 11:30] LABS: Glucose,Whole Blood 70 mg/dL (75-99)
[2020-10-23] MEDS: MIDODRINE 5 MG TAB PO SCH ×2 (11:56→17:48)
--- NOTE | 2020-10-23 13:08 | P.PN ---
Subjective Progress Note Date: 10/23/20 Principal diagnosis: Ascites, hypotension Patient was seen and examined lying in bed. She is alert and oriented to self and place, however unsure of year. She denies any abdominal pain, nausea, or vomiting. She remains hyponatremic with a sodium of 129. No acute changes thro ugh the night. She is scheduled for paracentesis today with fluid studies. Objective - Vital Signs Vital signs: Vital Signs Temp 97.7 F 10/23/20 08:00 Pulse 78 10/23/20 08:00 Resp 16 10/23/20 08:00 BP 99/68 10/23/20 08:00 Pulse Ox 93 L 10/23/20 08:00 Intake & Output 10/22/20 10/23/20 10/23/20 18:59 06:59 18:59 Output Total 300 300 Balance -300 -300 Weight 54.431 kg Output: Urine 300 300 - Exam General appearance: The patient is alert, oriented, appears in no acute distress. HET: Head is normocephalic and atraumatic. Conjunctiva pink. Sclera anicteric. Neck: Supple without lymphadenopathy. Abdomen: Soft, tender, mildly distended with bowel sounds. No guarding or rigidity. Extremities: Normal skin color and turgor. No pedal edema Skin: No rashes, no jaundice Neurological: No focal deficits. Alert and oriented 3. - Labs CBC & Chem 7: 10/23/20 05:31 10/23/20 05:31 Labs: Abnormal Lab Results - Last 24 Hours (Table) 10/22/20 10/22/20 10/23/20 Range/Units 11:55 11:55 05:31 RBC 3.59 L 3.15 L (3.80-5.40) m/uL Hgb 10.7 L 9.5 L (11.4-16.0) gm/dL Hct 29.4 L (37.2-46.3) % MCHC 30.3 L (31.0-37.0) g/dL RDW 17.0 H 18.7 H (11.5-15.5) % Absolute Nucleated RBC 0.03 H (0.00-0.00) X 10*3/uL NRBC/100 WBC Diff 0.4 H (0.0-0.0) /100 WBCS Sodium 126 L (137-145) mmol/L Carbon Dioxide 20 L (22-30) mmol/L BUN 39 H (7-17) mg/dL Creatinine 1.62 H (0.52-1.04) mg/dL Glucose (74-99) mg/dL POC Glucose (mg/dL) (75-99) mg/dL Calcium 7.1 L (8.4-10.2) mg/dL Total Bilirubin 0.1 L (0.2-1.3) mg/dL AST 43 H (14-36) U/L Alkaline Phosphatase 148 H (38-126) U/L Total Protein 5.5 L (6.3-8.2) g/dL Albumin 1.7 L (3.5-5.0) g/dL 10/23/20 10/23/20 10/23/20 Range/Units 05:31 07:22 08:13 RBC (3.80-5.40) m/uL Hgb (11.4-16.0) gm/dL Hct (37.2-46.3) % MCHC (31.0-37.0) g/dL RDW (11.5-15.5) % Absolute Nucleated RBC (0.00-0.00) X 10*3/uL NRBC/100 WBC Diff (0.0-0.0) /100 WBCS Sodium 129 L (137-145) mmol/L Carbon Dioxide 19 L (22-30) mmol/L BUN 37 H (7-17) mg/dL Creatinine 1.43 H (0.52-1.04) mg/dL Glucose 41 L* (74-99) mg/dL POC Glucose (mg/dL) 49 L 72 L (75-99) mg/dL Calcium 7.1 L (8.4-10.2) mg/dL Total Bilirubin 0.1 L (0.2-1.3) mg/dL AST 38 H (14-36) U/L Alkaline Phosphatase 133 H (38-126) U/L Total Protein 5.1 L (6.3-8.2) g/dL Albumin 1.6 L (3.5-5.0) g/dL Microbiology - Last 24 Hours (Table) 10/21/20 17:45 Blood Culture - Preliminary Blood No Growth after 24 hours Assessment and Plan (1) Ascites Narrative/Plan: 70-year-old female with multiple medical comorbidities including refractory ascites requiring paracentesis every 10-14 days since initial presentation in 2019. Extensive evaluation including cytology performed on ascites, biopsy of peritoneal nodule negative for malignant process. Patient has had a low SAAG, high-protein ascites and evidence of fibrosis on liver biopsy not consistent with cirrhosis, however decompensated liver disease as been suspected and the patient has been treated with diuretic therapy. Unclear etiology of altered mental status may be related to hyponatremia, intravascular volume depletion, would recommend paracentesis with fluid studies to rule out SBP, or may be secondary to another process. Current Visit: Yes Status: Acute Code(s): R18.8 - OTHER ASCITES SNOMED Code(s): 457825688 (2) KAELA (acute kidney injury) Current Visit: Yes Status: Acute Code(s): N17.9 - ACUTE KIDNEY FAILURE, UNSPECIFIED SNOMED Code(s): 61639570 (3) Altered mental status Current Visit: Yes Status: Acute Code(s): R41.82 - ALTERED MENTAL STATUS, UNSPECIFIED SNOMED Code(s): 698996132 (4) Dehydration Current Visit: Yes Status: Acute Code(s): E86.0 - DEHYDRATION SNOMED Code(s): 82889184 (5) Hypotension Current Visit: Yes Status: Acute Code(s): I95.9 - HYPOTENSION, UNSPECIFIED SNOMED Code(s): 47493780 Plan: Supportive care Okay for low sodium diet Diuretic therapy currently being held in the setting of acute kidney injury, patient is on home Lasix and Aldactone Ammonia level ordered and within normal limits making encephalopathy less likely as a cause of her altered mental status Blood pressure currently improved but may be a candidate for Midodrine therapy if hypotension recurs on initiation of diuretic therapy Paracentesis ordered with fluid studies Nephrology consulted for hyponatremia, hypotension, and ascites for further diuretic management Continue broad-spectrum antibiotic therapy Thank you for this consultation, we will continue to follow the patient Dr. Goyal I agree with the dictator's note, documented as a scribe by Bhavya Rosado.
--- NOTE | 2020-10-23 14:08 | US ---
EXAMINATION TYPE: US abdomen limited DATE OF EXAM: 10/23/2020 COMPARISON: None CLINICAL HISTORY: please assess for fluid pocket. Ascites seen throughout abdomen IMPRESSION: Large amount of ascites throughout the abdomen.
[2020-10-23 15:56] VITALS: BMI 19.3
[2020-10-23 17:48] LABS: Appearance,BF Cloudy; Nucleated Cells, Body Fluid 11 /uL; RBC, Body Fluid 36 /uL
[2020-10-23] MEDS: ATORVASTATIN 10 MG TAB PO SCH (20:17)
[2020-10-24] MEDS: SODIUM CHLORIDE 0.9% 1,000 ML IV SCH ×2 (02:28→13:18)
[2020-10-24] MEDS: PANTOPRAZOLE 40 MG TABLET PO SCH (05:43)
[2020-10-24] MEDS: FERROUS SULFATE 325 MG TAB PO SCH (07:55)
[2020-10-24] MEDS: MIDODRINE 5 MG TAB PO SCH ×2 (07:55→13:17)
[2020-10-24] MEDS: IPRATROPIUM-ALBUTEROL 3 ML NEB INHALATION SCH ×2 (09:10→13:55)
[2020-10-24 09:22] VITALS: BP 98/61; PULSE 111; RESP 18; TEMP 98.2
--- NOTE | 2020-10-24 09:26 | US ---
Ultrasound-guided paracentesis. DATE OF EXAM: 10/23/2020 CLINICAL HISTORY: Ascites The procedure was discussed with the patient. The risks, complications, benefits, and alternatives we re discussed and any questions were answered. Informed consent was obtained. The patient was placed s upine on the ultrasound table and prepped and draped in the usual sterile fashion. All elements of maximal barrier technique were utilized. Under ultrasound guidance, access into the right lower quadrant was obtained, via the paracentesis catheter system and direct ultrasound guidanc e. Approximately 6.2 liters of straw-colored fluid was removed. The patient was stable throughout the pr ocedure and remained stable upon discharge from Department of Radiology. IMPRESSION: Successful paracentesis under ultrasound guidance.
--- NOTE | 2020-10-24 09:51 | P.DS ---
Providers Date of admission: 10/21/20 19:34 Expected date of discharge: 10/24/20 Attending physician: Funmi Fischer MD Consults: 10/21/20 19:35 Consult Physician Routine Consulting Provider: Benita Melo Consult Reason/Comments: Liver failure, hypotension Do you want consulting provider notified?: Yes 10/23/20 09:52 Consult Physician Routine Consulting Provider: Dana Garg Consult Reason/Comments: hyponatremia, hypotension, ascites, KAELA Do you want consulting provider notified?: Yes Primary care physician: Lela Van [facility] Course: HISTORY OF PRESENT ILLNESS 70 years old female patient of Dr. Vaughan with past medical history of gout, hypertension, Sjogren syndrome and suspected decompensated liver failure with the recurrent ascites seen almost monthly in the hospital. Her initial presentation was 04/2024 keep his amount of fluid remaining high-protein ascites. Patient was transferred to [facility] for further workup and underwent liver biopsy as well as diagnostic laparoscopy with biopsy of the peritumoral nodule which all came as negative. Malignancy was ruled out multiple times by cytology from patient's ascites fluid. She was hospitalized multiple times in June, July and has been requiring paracentesis almost 10-14 days. Patient is very well-known to the service and was last seen in the hospital on 09/14 underwent paracentesis on 09/15/ L were removed and patient was given some albumin. Patient was started on diuretic therapy and was sent to [facility]. Patient had a liver biopsy that suggestive fibrosis but no cirrhosis of liver. Multiple other etiology has been worked up and has come as negative. Patient's presentation is on assumed to be secondary to chronic liver disease. Patient was seen by Dr. Van outpatient and had a syncopal episode during her visit. She was sent to the ER for evaluation patient was found to be hypertensive. She had an episode of emesis in route. She denies any chest pain or shortness of breath. Vitals in the ER patient had a temp of 96.8 pulse 70 respiratory rate 16 blood pressure was 65/42. EKG was obtained that suggested first-degree AV block with no ectopy. No abdominal ST changes or T-wave inversions noted. Patient given 1-1/2 L of IV fluid with improvement of systolic pressures to the low 90s. Labs were reviewed patient has a WBC of 6.9 hemoglobin 10 which is stable, sodium 121 potassium 5.6 BUN 47 creatinine 2.28 chloride 95 bicarb 24 glucose 104 lactic acid was 2.5 troponin 0.0 2 repeat lactic acid after resuscitation is 1.3 urinalysis is negative for any infection. Chest x-ray suggestive of possible lower lobe infiltrate versus interstitial edema. Patient was seen in the ER today, denies any chest pain or shortness breath she does have some ongoing confusion would not be able to tell me whether she stays at home or at exact [facility] currently. Patient is a poor historian history obtained mostly from ER physician's note. On repeat assessment of patient's pressure, blood pressures improved 108/80 3 repeat Set pending from this morning. Patient has albumin of 1.7 ammonia less than 9. Covid was negative. Continue IV fluids at 1 30 mL/h patient's presentation appears to be related to a care in [facility]. Pneumonia appears unlikely to be chest x-ray could be obtained tomorrow. Stat labs including CBC CMP will be obtained. Gastroenterology consult placed. Patient's last paracentesis was 3 weeks ago. 10/23: Patient is seen today in follow-up. She has been seen by GI with recommendations for diet, midodrine for hypotension, possible nephrology consult for hyponatremia which is improving and paracentesis. We will add in paracentesis for interventional radiology. Patient is not currently on antibiotics. Repeat blood work reveals WBC 8.05. Hemoglobin 9.5, platelet count 326. Sodium 129, potassium 4.7, chloride 107, CO2 19, BUN 37 creatinine 1.43. Blood sugar this morning 41. Patient is not on antidiabetic medications. Calcium 7.1, total bilirubin 0.1, AST 38, ALT 9, alkaline phosphatase 133. Cultures no growth after 24 hours. A chest x-ray will be ordered to check for pneumonia. Patient is stating that she doesn't feel any better today. She states she feels terrible. She continues to have nausea and she feels that her belly is bigger and needs to have a paracentesis. 10/24: Patient has been afebrile, heart rate 103, blood pressure 92/60, pulse ox 97% on room air. site monitor is a sinus tachycardia. Patient underwent paracentesis yesterday afternoon with Dr. Yoder with removal of 6.2 L of straw-colored fluid. Fluid reveals cloudy, RBCs 36, nucleated cells 11. Fluid culture is in progress. Blood cultures no growth at 48 hours. Chest x-ray from yesterday afternoon revealed bilateral infiltrate and pleural effusion. Mild venous congestion in the differential. COPD. Patient is eating 100% of her meals but despite this, blood sugars are low. She is not on any diabetic medications. She has been seen by Dr. Garg for hyponatremia which is improving. She has recommended increasing in sure and protein intake and cleared her to resume Aldactone 25 mg twice daily and hold off Lasix until possibly end of next week. Patient is complaining of feeling tired and legs itching. Social work updated the patient will be ready for transfer back to [facility] today. ASSESSMENT AND PLAN #1 hypotension likely secondary to hypovolemic shock from volume deficit. #2 acute kidney injury secondary to ATN over chronic kidney disease stage III. #3 hyponatremia secondary to volume deficit. #4 hyperkalemia secondary to acute kidney injury. #5 decompensated liver failure with recurrent ascitis likely secondary to chronic liver disease. Liver biopsy and peritoneal biopsy has been negative. Cytology negative. #6. Recurrent ascites. #7 atherosclerotic heart disease. #8 hyperlipidemia. #9 chronic iron deficiency anemia related to renal and liver disease. #10 recurrent depression #11 constipation DISCHARGE PLAN Return to [facility]. Patient has legal guardian. Impression and plan of care have been directed as dictated by the signing physician. Kenisha Lew nurse practitioner acting as scribe for signing physician. Patient Condition at Discharge: Stable Plan - Discharge Summary Discharge Rx Participant: No New Discharge Prescriptions: New Midodrine [ProAmatine] 5 mg PO AC-TID tab Continue Magnesium Hydroxide [Milk of Magnesia Concentrate] 7,200 mg PO Q48H PRN PRN Reason: Constipation Maalox Plus Suspension 30 ml PO Q6H PRN PRN Reason: upset stomach Lactose-Reduced Food [Ensure Plus] 120 ml PO TID@0600,0800,2100 Ipratropium-Albuterol Nebulize [Duoneb 0.5 mg-3 mg/3 ml Soln] 3 ml INHALATION RT-TID Liquicel 30 ml PO BID@1200,1700 Sennosides [Senokot] 17.2 mg PO HS Pantoprazole Sodium [Protonix] 40 mg PO DAILY@0600 Ondansetron HCl [Zofran] 4 mg PO Q8H PRN PRN Reason: Nausea Spironolactone [Aldactone] 25 mg PO BID@0600,1400 SILVER sulfADIAZINE Cream [Silvadene 1% Cream] 1 applic TOPICAL BID Rosuvastatin Calcium [Crestor] 5 mg PO HS Ferrous Sulfate [Iron (65 MG Elemental)] 325 mg PO DAILY@0800 HYDROcodone/APAP 7.5-325MG [Socorro 7.5-325] 1 tab PO Q8H PRN #9 tab PRN Reason: Pain Discontinued Furosemide [Lasix] 40 mg PO BID@0600,1400 Carvedilol [Coreg] 6.25 mg PO DAILY@0800 Discharge Medication List Ferrous Sulfate [Iron (65 MG Elemental)] 325 mg PO DAILY@0800 10/21/20 [History] Ipratropium-Albuterol Nebulize [Duoneb 0.5 mg-3 mg/3 ml Soln] 3 ml INHALATION RT-TID 10/21/20 [History] Lactose-Reduced Food [Ensure Plus] 120 ml PO TID@0600,0800,2100 10/21/20 [History] Liquicel 30 ml PO BID@1200,1700 10/21/20 [History] Maalox Plus Suspension 30 ml PO Q6H PRN 10/21/20 [History] Magnesium Hydroxide [Milk of Magnesia Concentrate] 7,200 mg PO Q48H PRN 10/21/20 [History] Ondansetron HCl [Zofran] 4 mg PO Q8H PRN 10/21/20 [History] Pantoprazole Sodium [Protonix] 40 mg PO DAILY@0600 10/21/20 [History] Rosuvastatin Calcium [Crestor] 5 mg PO HS 10/21/20 [History] SILVER sulfADIAZINE Cream [Silvadene 1% Cream] 1 applic TOPICAL BID 10/21/20 [History] Sennosides [Senokot] 17.2 mg PO HS 10/21/20 [History] Spironolactone [Aldactone] 25 mg PO BID@0600,1400 10/21/20 [History] HYDROcodone/APAP 7.5-325MG [Socorro 7.5-325] 1 tab PO Q8H PRN #9 tab 10/24/20 [Rx] Midodrine [ProAmatine] 5 mg PO AC-TID tab 10/24/20 [Rx] Follow up Appointment(s)/Referral(s): Lela Van MD [Primary Care Provider] - 1 Week (after discharge from [facility] ) Anabel Walton, [NON-STAFF] - As Needed
[2020-10-24 11:17] LABS: African American GFR (CKD) 46 (>60 ml/min/1.73 sqM); Anion Gap -2 mmol/L; Blood Urea Nitrogen 35 mg/dL (7-17); Calcium 7.2 mg/dL (8.4-10.2); Carbon Dioxide 21 mmol/L (22-30); Chloride 108 mmol/L (98-107); Glucose 98 mg/dL (74-99); Non-African American GFR(CKD) 40 (>60 ml/min/1.73 sqM); Sodium 127 mmol/L (137-145)
[2020-10-24] MEDS: HYDROcodone/APAP 7.5-325MG 1 EACH TAB PO PRN (14:32)
--- NOTE | 2020-10-24 16:39 | CONS ---
CONSULTATION REASON FOR CONSULT: Hyponatremia. HISTORY OF PRESENT ILLNESS: Patient is a 70-year-old female who has a history of chronic liver disease with recurrent ascites requiring paracentesis. The patient was admitted to the hospital as she was found to be significantly hypotensive as outpatient. The patient actually had a syncopal episode during her outpatient visit with Dr. Van and therefore she was sent to the ER. She was hypotensive and has received about 2 L of fluid bolus. Systolic blood pressure now in the 90s. Her serum sodium was 121 on initial admission, it is now improved to 127. Diuretics are currently on hold. Previous sodium has been about 132-127 mEq/L. The patient denies any diarrhea, nausea or vomiting. PAST MEDICAL HISTORY: Significant for chronic liver disease status post liver biopsy, history of Sjogren syndrome, sicca syndrome with lung involvement, chronic hepatic failure/ascites with recurrent paracentesis, coronary artery disease, anemia, constipation. PAST SURGICAL HISTORY: Cardiac catheterization, hysterectomy, cataract surgery, liver biopsies, excision of gouty deposits on 4th right toe. SOCIAL HISTORY: Patient is a former smoker. No history of drug abuse or alcohol abuse. MEDICATIONS: Medications at home prior to admission included Coreg, iron, Lasix, lactose, LiquaCel, Protonix, Crestor, Senokot, Aldactone. ALLERGIES: Include AUGMENTIN, ERYTHROMYCIN, POTASSIUM. REVIEW OF SYSTEMS: As per HPI. Other systems negative. EXAMINATION: Patient is currently comfortable, awake, alert, oriented x3, not in any acute distress. Blood pressure 98/61, heart rate 111 per minute. Patient is afebrile. Examination of the heart S1, S2. Examination of the lungs, bilateral breath sounds are heard. Abdomen is soft, nontender. Examination of lower extremities shows chronic skin changes. No significant edema noted. CLIENT SERVICE CONSULTANT exam grossly intact. LAB: Show sodium 127, potassium 5.0, chloride 108, CO2 is 21, BUN 35, creatinine 1.3. ASSESSMENT: 1. Acute kidney injury, prerenal, currently improved with IV hydration. 2. Hypovolemic hyponatremia, improved with normal saline administration. We can resume Aldactone but hold off on Lasix for now and Lasix can most likely be started over the next few days with close monitoring of volume status as outpatient. 3. Chronic liver disease with recurrent ascites and paracentesis, status post paracentesis this admission, this morning. PLAN: Okay to discharge patient. Resume Aldactone. Can start Lasix down the road in the next few days based on volume status with close monitoring of labs as outpatient. MMODL / IJN: [id number] /
== END 2020-10-24 16:45 | DRG 441 ==
LOC: EC 14:25 → SUPCPDRO 14:25 → EEVIPCON 19:34 → 4SSUR 19:34
PROVIDERS: ADMIT Internal Medicine; ATTEND Internal Medicine
PROC: 0W9G3ZZ Drainage of Peritoneal Cavity, Percutaneous Approach (ICD-10-PCS; principal; 2020-10-24)
DX: K72.00 Acute and subacute hepatic failure without coma (principal); R57.1 Hypovolemic shock; N17.0 Acute kidney failure with tubular necrosis; R18.8 Other ascites; E87.1 Hypo-osmolality and hyponatremia; J84.9 Interstitial pulmonary disease, unspecified; F33.9 Major depressive disorder, recurrent, unspecified; J90 Pleural effusion, not elsewhere classified; R64 Cachexia; Z68.1 Body mass index [BMI] 19.9 or less, adult; E86.0 Dehydration; I95.9 Hypotension, unspecified; N18.30 Chronic kidney disease, stage 3 unspecified; I12.9 Hypertensive chronic kidney disease with stage 1 through stage 4 chronic kidney disease, or unspecified chronic kidney disease; E87.5 Hyperkalemia; E78.5 Hyperlipidemia, unspecified; D50.9 Iron deficiency anemia, unspecified; K72.10 Chronic hepatic failure without coma; D63.8 Anemia in other chronic diseases classified elsewhere; I25.10 Atherosclerotic heart disease of native coronary artery without angina pectoris; I44.0 Atrioventricular block, first degree; F41.9 Anxiety disorder, unspecified; D63.1 Anemia in chronic kidney disease; K21.9 Gastro-esophageal reflux disease without esophagitis; E86.1 Hypovolemia; M19.90 Unspecified osteoarthritis, unspecified site; M35.02 Sjogren syndrome with lung involvement; Z20.822 Contact with and (suspected) exposure to COVID-19; K59.00 Constipation, unspecified; R41.82 Altered mental status, unspecified; Z79.899 Other long term (current) drug therapy; Q82.5 Congenital non-neoplastic nevus; Z82.49 Family history of ischemic heart disease and other diseases of the circulatory system; Z86.718 Personal history of other venous thrombosis and embolism; Z90.710 Acquired absence of both cervix and uterus; Z87.891 Personal history of nicotine dependence; Z88.1 Allergy status to other antibiotic agents; Z88.0 Allergy status to penicillin; Z88.8 Allergy status to other drugs, medicaments and biological substances
CPT/HCPCS: 36415; 49083; 71045; 76705; 80048; 80053; 81003; 82140; 83605; 84484; 85025; 85027; 85610; 85730; 87040; 87070; 87075; 87077; 87186; 87205; 87635; 89050; 93005; 94640; 96360; 96361; 99291

== ENCOUNTER 2020-11-03 17:30 | Inpatient (IN) | payer MEDICARE ==
[2020-11-03] MEDS ORDERED: ONDANSETRON 4 MG/2 ML VIAL IVP STA (17:55)
[2020-11-03] MEDS ORDERED: HYDROmorphone 0.5 MG/0.5 ML SYRINGE IVP STA (17:55)
--- NOTE | 2020-11-03 18:00 | ED ---
General Adult HPI - General Chief complaint: Abdominal Pain Stated complaint: Abd pain Time Seen by Provider: 11/03/20 17:45 Source: patient, EMS Mode of arrival: EMS Limitations: physical limitation - History of Present Illness Initial comments: 70 year-old female patient with history significant for chronic hepatic failure with ascites presents to the emergency department for increased abdominal distention and pain. Patient states she was sent here for paracentesis. She was scheduled for paracentesis at [facility] on 11/04/20, but she could not wait due to decreased appetite, increased pain especially with movement, and sitting up. Documentation from [facility] states that she is also more "confused and lethargic". Patient denies any vomting, diarrhea, fever, or chills. Denies any headache, dizziness, chest pain, or shortness of breath. Patient denies any recent rash, cough, numbness, tingling, dizziness, weakness, hematuria, dysuria, urinary urgency, urinary frequency, visual changes, or any other complaints. - Related Data Home Medications Medication Instructions Recorded Confirmed Ferrous Sulfate [Iron (65 MG 325 mg PO DAILY@0800 10/21/20 11/03/20 Elemental)] Ipratropium-Albuterol Nebulize 3 ml INHALATION RT-TID 10/21/20 11/03/20 [Duoneb 0.5 mg-3 mg/3 ml Soln] Lactose-Reduced Food [Ensure Plus] 120 ml PO TID@0600,0800,209910/21/20 11/03/20 Maalox Plus Suspension 30 ml PO Q6H PRN 10/21/20 11/03/20 Magnesium Hydroxide [Milk of 7,200 mg PO Q48H PRN 10/21/20 11/03/20 Magnesia Concentrate] Ondansetron HCl [Zofran] 4 mg PO Q8H PRN 10/21/20 11/03/20 Pantoprazole Sodium [Protonix] 40 mg PO DAILY@0610/21/20 11/03/20 Rosuvastatin Calcium [Crestor] 5 mg PO HS@209910/21/20 11/03/20 SILVER sulfADIAZINE Cream 1 applic TOPICAL BID@0900,2100 10/21/20 11/03/20 [Silvadene 1% Cream] Sennosides [Senokot] 17.2 mg PO HS@2100 10/21/20 11/03/20 HYDROcodone/APAP 10-325MG [Kane 1 tab PO Q6HR PRN 11/03/20 11/03/20 10-325] Liquacel 30 ml PO BID@1200,1700 11/03/20 11/03/20 Na Phos,M-B/Na Phos,Di-Ba [Fleet 133 ml RECTAL DAILY PRN 11/03/20 11/03/20 Adult] bisacodyL [Dulcolax] 10 mg RECTAL DAILY PRN 11/03/20 11/03/20 Previous Rx's Medication Instructions Recorded Midodrine [ProAmatine] 5 mg PO AC-TID tab 10/24/20 Allergies Allergy/AdvReac Type Severity Reaction Status Date / Time amoxicillin trihydrate Allergy Vomiting Verified 11/03/20 19:54 [From Augmentin] erythromycin base Allergy Vomiting Verified 11/03/20 19:54 potassium clavulanate Allergy Vomiting Verified 11/03/20 19:54 [From Augmentin] Review of Systems ROS Statement: Those systems with pertinent positive or pertinent negative responses have been documented in the HPI. ROS Other: All systems not noted in ROS Statement are negative. Past Medical History Past Medical History: Asthma, Deep Vein Thrombosis (DVT), GERD/Reflux, Hyperlipidemia, Hypertension, Osteoarthritis (OA) Additional Past Medical History / Comment(s): Sjorgen's syndrome, sicca syndrome with lung involvement, chronic hepatic failure/ascities with multiple p aracentesis/worked up at [facility], abdominal pain, gout, past elevated Ddimer with negative cat scans, ASHD, iron anemia, constipation History of Any Multi-Drug Resistant Organisms: None Reported Past Surgical History: Heart Catheterization, Hysterectomy, Orthopedic Surgery Additional Past Surgical History / Comment(s): Liver bx/diagnostic laparoscopy peritumoral nodule bx both benign, excision gouty deposit 4th R toe, bilateral cataract removals Past Anesthesia/Blood Transfusion Reactions: No Reported Reaction Additional Past Anesthesia/Blood Transfusion Reaction / Comment(s): Post cath woke diaphoretic with vision change and unable to speak. Increased anxiety prior to surgery. Past Psychological History: Anxiety, Depression Smoking Status: Former smoker Past Alcohol Use History: None Reported Past Drug Use History: None Reported - Past Family History Father Family Medical History: Myocardial Infarction (PR) General Exam Limitations: physical limitation General appearance: alert, in no apparent distress, other (Vital signs upon presentation are temperature 98.0F, pulse 112, respirations 16, blood pressure 112/86, pulse ox 98% on room air.) Eye exam: Present: normal appearance, PERRL, EOMI. Absent: scleral icterus, conjunctival injection, periorbital swelling ENT exam: Present: normal exam, normal oropharynx, mucous membranes moist Respiratory exam: Present: normal lung sounds bilaterally. Absent: respiratory distress, wheezes, rales, rhonchi, stridor Cardiovascular Exam: Present: regular rate, normal rhythm, normal heart sounds. Absent: systolic murmur, diastolic murmur, rubs, gallop, clicks GI/Abdominal exam: Present: soft, distended, tenderness (generalized), normal bowel sounds. Absent: guarding, rebound, rigid Neurological exam: Present: alert, oriented X3, CN II-XII intact Psychiatric exam: Present: normal affect, normal mood Skin exam: Present: warm, dry, intact, normal color. Absent: rash Course Vital Signs 11/03/20 11/03/20 11/03/20 17:35 17:46 19:02 Temperature 98.0 F Pulse Rate 112 H 115 H 114 H Respiratory 16 16 18 Rate Blood Pressure 112/86 112/79 110/75 O2 Sat by Pulse 98 95 99 Oximetry 11/03/20 21:07 Temperature Pulse Rate 110 H Respiratory 18 Rate Blood Pressure 103/74 O2 Sat by Pulse 98 Oximetry EKG Findings - EKG Comments: EKG Findings:: EKG obtained at 1930 shows sinus tachycardia with a ventricular rate of 111, VA interval 200, QRS duration 68, QT 336, QTc 456. No evidence of ST elevation or depression. Medical Decision Making - Medical Decision Making 70-year-old female patient presents to the emergency department today for evaluation of increased abdominal distention and pain. jail staff also reports decreased appetite, confusion, lethargy. Labs reviewed and did reveal hemoglobin of 10.7 which is chronic. INR is 1.2. Potassium 5.2. BUN and creatinine are elevated from baseline of 52 and 2.55. Ammonia is less than 9. Patient was scheduled to undergo paracentesis tomorrow. We will admit to the hospital for evaluation by GI, possible paracentesis. We also consult nephrology for worsening renal function. Case was discussed with Dr. Van, she is accepting. My attending is Dr. Almazan. - Lab Data Result diagrams: 11/03/20 18:26 11/03/20 18:26 Lab Results 11/03/20 11/03/20 11/03/20 Range/Units 18:26 18:26 18:26 WBC 8.6 (3.8-10.6) k/uL RBC 3.48 L (3.80-5.40) m/uL Hgb 10.7 L (11.4-16.0) gm/dL Hct 32.0 L (34.0-46.0) % MCV 91.9 D (80.0-100.0) fL MCH 30.7 (25.0-35.0) pg MCHC 33.5 (31.0-37.0) g/dL RDW 17.1 H (11.5-15.5) % Plt Count 351 (150-450) k/uL MPV 8.8 Neutrophils % 64 % Lymphocytes % 19 % Monocytes % 10 % Eosinophils % 0 % Basophils % 3 % Neutrophils # 5.5 (1.3-7.7) k/uL Lymphocytes # 1.7 (1.0-4.8) k/uL Monocytes # 0.8 (0-1.0) k/uL Eosinophils # 0.0 (0-0.7) k/uL Basophils # 0.3 H (0-0.2) k/uL Poikilocytosis Slight Anisocytosis Slight PT 12.3 H (9.0-12.0) sec INR 1.2 H (<1.2) APTT 32.6 H (22.0-30.0) sec Sodium 125 L (137-145) mmol/L Potassium 5.2 H (3.5-5.1) mmol/L Chloride 101 (98-107) mmol/L Carbon Dioxide 19 L (22-30) mmol/L Anion Gap 5 mmol/L BUN 52 H (7-17) mg/dL Creatinine 2.55 H (0.52-1.04) mg/dL Est GFR (CKD-EPI)AfAm 21 (>60 ml/min/1.73 sqM) Est GFR (CKD-EPI)NonAf 18 (>60 ml/min/1.73 sqM) Glucose 85 (74-99) mg/dL Calcium 7.8 L (8.4-10.2) mg/dL Total Bilirubin 0.2 (0.2-1.3) mg/dL AST 50 H (14-36) U/L ALT 13 (4-34) U/L Alkaline Phosphatase 322 H (38-126) U/L Ammonia (<30) umol/L Total Protein 6.0 L (6.3-8.2) g/dL Albumin 1.9 L (3.5-5.0) g/dL Lipase 153 (23-300) U/L 11/03/20 Range/Units 18:26 WBC (3.8-10.6) k/uL RBC (3.80-5.40) m/uL Hgb (11.4-16.0) gm/dL Hct (34.0-46.0) % MCV (80.0-100.0) fL MCH (25.0-35.0) pg MCHC (31.0-37.0) g/dL RDW (11.5-15.5) % Plt Count (150-450) k/uL MPV Neutrophils % % Lymphocytes % % Monocytes % % Eosinophils % % Basophils % % Neutrophils # (1.3-7.7) k/uL Lymphocytes # (1.0-4.8) k/uL Monocytes # (0-1.0) k/uL Eosinophils # (0-0.7) k/uL Basophils # (0-0.2) k/uL Poikilocytosis Anisocytosis PT (9.0-12.0) sec INR (<1.2) APTT (22.0-30.0) sec Sodium (137-145) mmol/L Potassium (3.5-5.1) mmol/L Chloride (98-107) mmol/L Carbon Dioxide (22-30) mmol/L Anion Gap mmol/L BUN (7-17) mg/dL Creatinine (0.52-1.04) mg/dL Est GFR (CKD-EPI)AfAm (>60 ml/min/1.73 sqM) Est GFR (CKD-EPI)NonAf (>60 ml/min/1.73 sqM) Glucose (74-99) mg/dL Calcium (8.4-10.2) mg/dL Total Bilirubin (0.2-1.3) mg/dL AST (14-36) U/L ALT (4-34) U/L Alkaline Phosphatase (38-126) U/L Ammonia <9 (<30) umol/L Total Protein (6.3-8.2) g/dL Albumin (3.5-5.0) g/dL Lipase (23-300) U/L Disposition Clinical Impression: Abdominal ascites, Abdominal pain, Acute on chronic renal failure Disposition: ADMITTED IP TO THIS [facility] Condition: Serious Decision to Admit Reason: Admit from EC Decision Date: 11/03/20 Decision Time: 20:32
[2020-11-03 18:45] LABS: Anisocytosis Slight; Basophils # (A) 0.3 k/uL (0-0.2); Basophils % (A) 3 %; Eosinophils % (A) 0 %; HGB 10.7 gm/dL (11.4-16.0); Lymphocytes # (A) 1.7 k/uL (1.0-4.8); Lymphocytes % (A) 19 %; MCH 30.7 pg (25.0-35.0); MCHC 33.5 g/dL (31.0-37.0); Mean Platelet Volume 8.8; Monocytes # (A) 0.8 k/uL (0-1.0); Monocytes % (A) 10 %; Neutrophils # (A) 5.5 k/uL (1.3-7.7); Neutrophils % (A) 64 %; Platelet Count 351 k/uL (150-450); Poikilocytosis Slight; RBC 3.48 m/uL (3.80-5.40); RDW 17.1 % (11.5-15.5); WBC 8.6 k/uL (3.8-10.6)
[2020-11-03 18:54] LABS: INR 1.2 (<1.2); Partial Thromboplastin Time 32.6 sec (22.0-30.0); Prothrombin Time 12.3 sec (9.0-12.0)
[2020-11-03 18:57] LABS: MCV 91.9 fL (80.0-100.0)
[2020-11-03 19:00] LABS: Albumin 1.9 g/dL (3.5-5.0); Calcium 7.8 mg/dL (8.4-10.2); Potassium 5.2 mmol/L (3.5-5.1); Total Bilirubin 0.2 mg/dL (0.2-1.3)
[2020-11-03] MEDS ORDERED: NALOXONE 0.4 MG/ML 1 ML VIAL IV PRN (20:40)
[2020-11-03] MEDS ORDERED: ONDANSETRON 4 MG/2 ML VIAL IVP PRN (20:40)
[2020-11-04] MEDS: HYDROmorphone 0.5 MG/0.5 ML SYRINGE IVP PRN ×2 (04:17→12:53)
[2020-11-04] MEDS ORDERED: IOPAMIDOL CONTRAST (ORAL USE) VIAL PO PRN (09:10)
[2020-11-04] MEDS ORDERED: bisacodyL 10 MG SUPP RECTAL PRN (10:01)
[2020-11-04] MEDS ORDERED: ONDANSETRON 4 MG TAB PO PRN (10:01)
[2020-11-04] MEDS ORDERED: MAGNESIUM HYDROXIDE 2,400 MG/10 ML CUP PO PRN (10:01)
[2020-11-04 10:51] VITALS: BMI 30.2
[2020-11-04] MEDS: IPRATROPIUM-ALBUTEROL 3 ML NEB INHALATION SCH ×2 (11:24→19:12)
[2020-11-04] MEDS ORDERED: NON FORMULARY DRUG (Liquacel 30 ML) PO SCH (12:00)
[2020-11-04] MEDS: MIDODRINE 5 MG TAB PO SCH ×2 (12:56→17:52)
--- NOTE | 2020-11-04 13:57 | P.HPIM ---
History of Present Illness H&P Date: 11/04/20 Chief Complaint: Ascites, increasing with abdominal distention 70 years old female patient one of my clinic patient with past medical history of gout, hypertension, Sjogren syndrome and suspected decompensated liver failure with the recurrent ascites seen almost monthly in the hospital. Her initial presentation was 04/2024 keep his amount of fluid remaining high-protein ascites. Patient was transferred to [facility] for further workup and underwent liver biopsy as well as diagnostic laparoscopy with biopsy of the peritumoral nodule which all came as negative. Malignancy was ruled out multiple times by cytology from patient's ascites fluid. She was hosp italized multiple times in June, July and has been requiring paracentesis almost 10-14 days. Patient is very well-known to the service and was last seen in the hospital on 09/14 underwent paracentesis on 09/15/20, 6 L were removed and patient was given some albumin. Patient was started on diuretic therapy and was sent to [facility]. Patient had a liver biopsy that suggestive fibrosis but no cir rhosis of liver. Multiple other etiology has been worked up and has come as negative. Patient's presentation is on assumed to be secondary to chronic liver disease. Patient was seen by Dr. Van outpatient and had a syncopal episode during her visit. druing her last admisssion 10/22/20 She was sent to the ER for evaluation patient was found to be hyportensive, 65/42. EKG was obtained that suggested first-degree AV block with no ectopy. No abdominal ST changes or T- wave inversions noted. Patient given 1-1/2 L of IV fluid with improvement of systolic pressures to the low , sodium 121 potassium 5.6 BUN 47 creatinine 2.28 troponin 0.0 2 repeat lactic acid after resuscitation is 1.3 urinalysis is negative for any infection. Chest x-ray suggestive of possible lower lobe infiltrate versus interstitial edema. She comes back to the emergency room from [facility], secondary to abdominal distention, increasing abdominal discomfort, with tense ascites, patient has weight loss, noted to have some bruising in the upper arms on this current admission, however patient denies any petechiae, or hematomas, and no epistaxis no bleeding in the urine, and in the stool. Admission is for tense ascites, with consult to gastroenterology, and Dr. Biggs for repeat abdominal paracentesis Patient's last paracentesis was 10/24/2020. request to repeat ct abdomen pelvis today for monitoring, oral contrast only. creat elevated Review of Systems Constitutional: Reports as per HPI, Reports anorexia, Reports chronic pain, Reports lethargy, Reports poor appetite, Reports weakness Ears, nose, mouth and throat: Reports as per HPI Cardiovascular: Reports as per HPI Respiratory: Reports as per HPI, Denies congestion, Denies cough, Denies cough with sputum, Denies dyspnea, Denies excessive sputum, Denies hemoptysis, Denies home oxygen, Denies pain, Denies pain on inspiration, Denies pleurisy, Denies respiratory infections, Denies sleep apnea, Denies snoring, Denies wheezing Gastrointestinal: Reports abdominal pain, Reports bloating, Reports constipation, Reports loss of appetite, Denies change in bowel habits, Denies diarrhea, Denies excessive gas Genitourinary: Reports as per HPI, Denies abnormal vaginal bleeding, Denies incomplete emptying, Denies urinary frequency Menstruation: Reports as per HPI Musculoskeletal: Reports as per HPI, Denies arm numbness/tingling, Denies atrophy, Denies fractures, Denies frequent falls, Denies gait dysfunction, Denies hot joints, Denies leg numbness/tingling, Denies limitation of motion, Denies loss of height, Denies low back pain, Denies morning stiffness, Denies muscle cramps, Denies muscle weakness, Denies myalgias, Denies neck pain, Denies neck stiffness, Denies prior amputations, Denies redness of joints, Denies shooting arm pain, Denies shooting leg pain Integumentary: Reports as per HPI, Reports unusual bruising, Denies darkening of skin Neurological: Reports as per HPI, Reports gait dysfunction, Reports memory loss, Reports weakness, Denies change in mentation, Denies change in speech, Denies confusion, Denies convulsions, Denies double vision, Denies head injury, Denies headaches, Denies lack of coordination, Denies motor disturbance, Denies numbness, Denies paralysis, Denies paresthesias, Denies seizures, Denies sensory deficit, Denies spasticity, Denies syncope, Denies tremors, Denies vertigo Psychiatric: Reports as per HPI, Reports sleep disturbances Endocrine: Reports as per HPI, Denies cold intolerance, Denies deepening of the voice, Denies excessive sweating, Denies excessive thirst, Denies fatigue, Denies flushing, Denies heat intolerance, Denies high blood sugars, Denies increase in ring/shoe/hat size, Denies low blood sugars, Denies nocturia, Denies palpitations, Denies polydipsia, Denies polyphagia, Denies polyuria, Denies proptosis, Denies recent glucocorticoid use, Denies thyroid mass, Denies weight change Hematologic/Lymphatic: Reports as per HPI, Denies easy bleeding, Denies easy bruising, Denies lymphadenopathy, Denies lymphedema, Denies thrombophilia Allergic/Immunologic: Reports as per HPI, Denies allergic rhinitis, Denies anaphylaxis, Denies angioedema, Denies gluten intolerance, Denies persistent inf ections, Denies seasonal allergies, Denies urticaria, Denies wheezing Past Medical History Past Medical History: Asthma, Deep Vein Thrombosis (DVT), GERD/Reflux, Hyperlipidemia, Hypertension, Osteoarthritis (OA) Additional Past Medical History / Comment(s): Sjorgen's syndrome, sicca syndrome with lung involvement, chronic hepatic failure/ascities with multiple paracentesis/worked up at [facility], abdominal pain, gout, past elevated Ddimer with negative cat scans, ASHD, iron anemia, constipation History of Any Multi-Drug Resistant Organisms: None Reported Past Surgical History: Heart Catheterization, Hysterectomy, Orthopedic Surgery Additional Past Surgical History / Comment(s): Liver bx/diagnostic laparoscopy peritumoral nodule bx both benign, excision gouty deposit 4th R toe, bilateral cataract removals Past Anesthesia/Blood Transfusion Reactions: No Reported Reaction Additional Past Anesthesia/Blood Transfusion Reaction / Comment(s): Post cath woke diaphoretic with vision change and unable to speak. Increased anxiety prior to surgery. Past Psychological History: Anxiety, Depression Additional Psychological History / Comment(s): Pt resides at [facility]. She mostly sits on edge of bed and is very sleepy much of the time. Staff occasionally assist her up into wheelchair. She needs assist with ADLs Smoking Status: Never smoker Past Alcohol Use History: None Reported Additional Past Alcohol Use History / Comment(s): Pt started smoking in 1970 and quit in 2014 Past Drug Use History: None Reported - Past Family History Father Family Medical History: Myocardial Infarction (DC) Medications and Allergies Home Medications Medication Instructions Recorded Confirmed Type Ferrous Sulfate [Iron (65 MG 325 mg PO DAILY@0800 10/21/20 11/03/20 History Elemental)] Ipratropium-Albuterol Nebulize 3 ml INHALATION RT-TID 10/21/20 11/03/20 History [Duoneb 0.5 mg-3 mg/3 ml Soln] Lactose-Reduced Food [Ensure Plus] 120 ml PO TID@0600,0800,209910/21/20 11/03/20 History Maalox Plus Suspension 30 ml PO Q6H PRN 10/21/20 11/03/20 History Magnesium Hydroxide [Milk of 7,200 mg PO Q48H PRN 10/21/20 11/03/20 History Magnesia Concentrate] Ondansetron HCl [Zofran] 4 mg PO Q8H PRN 10/21/20 11/03/20 History Pantoprazole Sodium [Protonix] 40 mg PO DAILY@0600 10/21/20 11/03/20 History Rosuvastatin Calcium [Crestor] 5 mg PO HS@209910/21/20 11/03/20 History SILVER sulfADIAZINE Cream 1 applic TOPICAL BID@0900,209910/21/20 11/03/20 History [Silvadene 1% Cream] Sennosides [Senokot] 17.2 mg PO HS@209910/21/20 11/03/20 History Midodrine [ProAmatine] 5 mg PO AC-TID tab 10/24/20 11/03/20 Rx HYDROcodone/APAP 10-325MG [[place] 1 tab PO Q6HR PRN 11/03/20 11/03/20 History 10-325] Liquacel 30 ml PO BID@1200,1700 11/03/20 11/03/20 History Na Phos,M-B/Na Phos,Di-Ba [[place]leet 133 ml RECTAL DAILY PRN 11/03/20 11/03/20 History Adult] bisacodyL [Dulcolax] 10 mg RECTAL DAILY PRN 11/03/20 11/03/20 History Allergies Allergy/AdvReac Type Severity Reaction Status Date / Time amoxicillin trihydrate Allergy Vomiting Verified 11/03/20 19:54 [From Augmentin] erythromycin base Allergy Vomiting Verified 11/03/20 19:54 potassium clavulanate Allergy Vomiting Verified 11/03/20 19:54 [From Augmentin] Physical Exam Vitals: Vital Signs Temp Pulse Pulse Resp BP BP Pulse Ox 11/04/20 11:31 122 H 11/04/20 11:27 118 H 11/04/20 08:00 18 11/04/20 07:00 97.5 F L 122 H 20 108/72 98 11/04/20 02:00 97.5 F L 67 16 99/64 93 L 11/03/20 23:25 97.9 F 90 18 122/85 92 L 11/03/20 22:05 112 H 16 103/71 98 11/03/20 21:07 110 H 18 103/74 98 11/03/20 19:02 114 H 18 110/75 99 11/03/20 17:46 115 H 16 112/79 95 11/03/20 17:35 98.0 F 112 H 16 112/86 98 Intake and Output 11/03/20 11/04/20 11/04/20 22:59 06:59 14:59 Other: Voiding Method Diaper Diaper Weight 72.575 kg 72.575 kg 72.575 kg - Constitutional General appearance: cooperative, no acute distress, thin - EENT Eyes: PERRLA, dentition normal, normal appearance ENT: normal oropharynx - Neck Neck: normal ROM - Respiratory Respiratory: bilateral: CTA, negative: diminished, dullness, rales, rhonchi - Cardiovascular Rhythm: regular Abnormal Heart Sounds: no systolic murmur, no diastolic murmur, no rub, no S3 Gallop, no S4 Gallop, no click, no other - Gastrointestinal General gastrointestinal: distended, normal bowel sounds, soft - Neurologic Neurologic: CNII-XII intact - Musculoskeletal Musculoskeletal: gait normal, strength equal bilaterally - Psychiatric Psychiatric: A&O x's 3, appropriate affect, intact judgment & insight Results CBC & Chem 7: 11/03/20 18:26 11/03/20 18:26 Labs: Abnormal Lab Results - Last 24 Hours (Table) 11/03/20 11/03/20 11/03/20 Range/Units 18:26 18:26 18:26 RBC 3.48 L (3.80-5.40) m/uL Hgb 10.7 L (11.4-16.0) gm/dL Hct 32.0 L (34.0-46.0) % RDW 17.1 H (11.5-15.5) % Basophils # 0.3 H (0-0.2) k/uL PT 12.3 H (9.0-12.0) sec INR 1.2 H (<1.2) APTT 32.6 H (22.0-30.0) sec Sodium 125 L (137-145) mmol/L Potassium 5.2 H (3.5-5.1) mmol/L Carbon Dioxide 19 L (22-30) mmol/L BUN 52 H (7-17) mg/dL Creatinine 2.55 H (0.52-1.04) mg/dL Calcium 7.8 L (8.4-10.2) mg/dL AST 50 H (14-36) U/L Alkaline Phosphatase 322 H (38-126) U/L Total Protein 6.0 L (6.3-8.2) g/dL Albumin 1.9 L (3.5-5.0) g/dL Laboratory Results WBC 8.6 k/uL (3.8-10.6) 11/03/20 18: RBC 3.48 m/uL (3.80-5.40) L 11/03/20 18:26 Hgb 10.7 gm/dL (11.4-16.0) L 11/03/20 18:26 Hct 32.0 % (34.0-46.0) L 11/03/20 18:26 MCV 91.9 fL (80.0-100.0) D 11/03/20 18: MCH 30.7 pg (25.0-35.0) 11/03/20 18: MCHC 33.5 g/dL (31.0-37.0) 11/03/20 18: RDW 17.1 % (11.5-15.5) H 11/03/20 18:26 Plt Count 351 k/uL (150-450) 11/03/20 18:26 MPV 8.8 11/03/20 18:26 Neutrophils % 64 % 11/03/20 18:26 Lymphocytes % 19 % 11/03/20 18:26 Monocytes % 10 % 11/03/20 18:26 Eosinophils % 0 % 11/03/20 18:26 Basophils % 3 % 11/03/20 18:26 Neutrophils # 5.5 k/uL (1.3-7.7) 11/03/20 18:26 Lymphocytes # 1.7 k/uL (1.0-4.8) 11/03/20 18:26 Monocytes # 0.8 k/uL (0-1.0) 11/03/20 18:26 Eosinophils # 0.0 k/uL (0-0.7) 11/03/20 18:26 Basophils # 0.3 k/uL (0-0.2) H 11/03/20 18:26 Poikilocytosis Slight 11/03/20 18:26 Anisocytosis Slight 11/03/20 18:26 PT 12.3 sec (9.0-12.0) H 11/03/20 18: INR 1.2 (<1.2) H 11/03/20 18:26 APTT 32.6 sec (22.0-30.0) H 11/03/20 18:26 Sodium 125 mmol/L (137-145) L 11/03/20 18:26 Potassium 5.2 mmol/L (3.5-5.1) H 11/03/20 18:26 Chloride 101 mmol/L (98-107) 11/03/20 18:26 Carbon Dioxide 19 mmol/L (22-30) L 11/03/20 18:26 Anion Gap 5 mmol/L 11/03/20 18:26 BUN 52 mg/dL (7-17) H 11/03/20 18:26 Creatinine 2.55 mg/dL (0.52-1.04) H 11/03/20 18:26 Est GFR (CKD-EPI)AfAm 21 (>60 ml/min/1.73 sqM) 11/03/20 18:26 Est GFR (CKD-EPI)NonAf 18 (>60 ml/min/1.73 sqM) 11/03/20 18:26 Glucose 85 mg/dL (74-99) 11/03/20 18:26 Calcium 7.8 mg/dL (8.4-10.2) L 11/03/20 18:26 Total Bilirubin 0.2 mg/dL (0.2-1.3) 11/03/20 18:26 AST 50 U/L (14-36) H 11/03/20 18:26 ALT 13 U/L (4-34) 11/03/20 18:26 Alkaline Phosphatase 322 U/L (38-126) H 11/03/20 18:26 Ammonia <9 umol/L (<30) 11/03/20 18:26 Total Protein 6.0 g/dL (6.3-8.2) L 11/03/20 18:26 Albumin 1.9 g/dL (3.5-5.0) L 11/03/20 18:26 Lipase 153 U/L (23-300) 11/03/20 18:26 Coronavirus (PCR) Not Detected (Not Detectd) 11/03/20 22:00 Thrombosis Risk Factor Assmnt - DVT/VTE Prophylaxis DVT/VTE Prophylaxis: Mechanical Prophylaxis ordered, Low risk, early ambulation encouraged - Choose All That Apply Each Risk Factor Represents 2 Points: Age 61-74 years Thrombosis Risk Factor Assessment Total Risk Factor Score: 2 Thrombosis Risk Factor Assessment Level: Low Risk Assessment and Plan Plan: 1.Tense ascites, caused by from fatty liver chronic liver disease, no diagnosis of cirrhosis based from liver biopsy at [facility], requires abdominal paracentesis within the next 24 hrs, s/p abdominal paracentesis Consult gastroenterology, interventional radiology Dr. Biggs, patient would require albumin infusion pre and post infusion, severe protein calorie malnutrition with significant hypoalbuminemia 2 acute kidney injury secondary to ATN over chronic kidney disease stage III on Aldactone on Lasix. Baseline creatinines 1.6 Hepatorenal syndrome is a possibility. Repeat CMP ordered. Avoid nephrotoxic agents 3. Protein calorie malnutrition, protein supplementation, significant cachexia noted on examination today, compared to my last visit from several months ago, protein supplementation, check CAT scan of the abdomen and pelvis for monitoring 4 hyperkalemia secondary to acute kidney injury. Repeat CMP ordered. 5 decompensated liver failure with recurrent ascitis likely secondary to c hronic liver disease. Liver biopsy and peritoneal biopsy has been negative. Cytology negative. TB negative. SAAG less than 1.1 with high protein ascites. Pain management with [place]. 6. History of elevated CA 125, with prior history of KOBE/BSO, monitor panel 7 atherosclerotic heart disease continue Coreg along with atorvastatin. Hold Aldactone and furosemide 8 hyperlipidemia continue Crestor at 5 mg daily 9 chronic iron deficiency anemia related to renal and liver disease. Continue daily CBC. 10 chronic depression not on any medication currently 11 constipation hold stool softener at this moment. 12 CODE STATUS full code 13 GI prophylaxis on Protonix 14 DVT prophylaxis with heparin every 12 15 disposition Return to [facility]
--- NOTE | 2020-11-04 14:48 | CONS ---
CONSULTATION REASON FOR CONSULT: Renal failure. HISTORY OF PRESENT ILLNESS: The patient is a 70-year-old female with history of chronic liver disease with history of ascites and paracentesis was admitted to the hospital with complaints of abdominal pain and distention. She has had decreasing appetite. No complaints of diarrhea, nausea or vomiting. Serum creatinine was 2.5 mg/dL yesterday. We do not have any labs today. Sodium was 125. Previous labs show serum creatinine 1.3 on 10/24/2020. Previous sodium was 127 on 10/24/2020. Blood pressure is about 108/99 mmHg systolic. Home medications do not reveal any NSAIDs or MILTON inhibitors. PAST MEDICAL HISTORY: Chronic liver disease, asthma, history of DVT, gastroesophageal reflux disease, hyperlipidemia, osteoarthritis, Sjogren syndrome, sicca syndrome with pulmonary involvement, constipation. PAST SURGICAL HISTORY: Cardiac catheterization, hysterectomy, liver biopsy, laparoscopy, cataract surgery. SOCIAL HISTORY: Patient is a former smoker. No history of drug abuse or alcohol abuse. MEDICATIONS: Medications prior to admission included iron, Ensure, Maalox, milk of magnesia, Protonix, Crestor, Senokot, Dulcolax, [place], midodrine. ALLERGIES: INCLUDE AMOXICILLIN/AUGMENTIN AND ERYTHROMYCIN, WHICH CAUSES VOMITING AND AUGMENTIN ALSO CAUSES VOMITING. REVIEW OF SYSTEMS: As per HPI. Other systems negative. EXAMINATION: Currently comfortable, awake. She is not in any acute distress. Does not communicate much. Blood pressure was 108/72, heart rate 118 per minute. Patient is afebrile. Examination of the heart S1, S2. Examination of lungs, decreased breath sounds at bases. Abdomen is soft, distended, nontender. Examination of lower extremities trace edema bilaterally. FUNDRAISING MANAGER exam: Patient is moving her extremities but does not communicate much. LABS: Labs show sodium 125, potassium 5.2, BUN 52, serum creatinine 2.5. CO2 is 19, hemoglobin 10.7 g/dL. UA is not available. ASSESSMENT: Acute kidney injury, possibly related to hypotension, hypoperfusion. No nephrotoxic agents on board. Receiving albumin. There may be a component of compartment syndrome from ascites. I will continue with the midodrine. Check urinalysis. Check urine output accurately and proceed with paracentesis followed by albumin as patient was scheduled to have paracentesis as outpatient. Thank you for this consultation. We will continue to follow the patient with you during her hospitalization. MMODL / IJN: [id number] /
[2020-11-04] MEDS: ALBUMIN HUMAN 25% 50 ML in EMPTY BAG 1 BAG IVPB SCH ×4 (14:50→16:06)
--- NOTE | 2020-11-04 15:25 | P.CONS ---
History of Present Illness - Reason for Consult Consult date: 11/04/20 Ascites Requesting physician: Lela Van - Chief Complaint Abdominal pain, ascites - History of Present Illness 70-year-old female with a medical history significant for gout, hypertension, Sjogren syndrome and refractory ascites suspected to be secondary to decompens ated cryptogenic cirrhosis who presented to the hospital due to altered mental status. The patient has had extensive evaluation in the past since her initial presentation 04/2020 when she presented with fluid overload and paracentesis was significant for high-protein ascites. Previous workup has been negative for any evidence of malignancy including on cytology from ascitic fluid. On initial ev aluation she was transferred to [facility] workup included liver biopsy as well as laparoscopy with biopsy of a peritoneal nodule which was negative at that time and then on repeat biopsy later with the surgical service locally. She has been requiring paracentesis every 10-14 days was initiated on diuretic therapy with Lasix 40 mg twice daily and Aldactone 25 mg twice daily over this was discontinued during her last admission for hyponatremia. She was supposed to restart her Aldactone at 25 mg twice a day. Prior liver biopsy was suggestive of fibrosis without evidence of cirrhosis however patient has been receiving treatment for suspected cirrhosis of liver. She was sent to the emergency department for complaints of abdominal pain and ascites. Patient was supposedly scheduled for outpatient paracentesis today at [facility] however stated she was encouraged much pain and needed to come in. Patient is seen and examined lying in bed, slightly confused. She is orientated to self and place, unsure of year. She states she's been having abdominal pain and distention for a while now. She was just recently admitted on October 22 and underwent a paracentesis on October 23 with removal of 6.2 L of fluid. She follows with Dr. Melo. She was diagnosed with cirrhosis of the liver suspected cryptogenic cirrhosis she states about less than one year ago. She also has a history of chronic kidney disease came in and was found to be hyponatremic and hyperkalemic. Patient is unsure if she is taking any diuretics. Patient labs include WBC 8.6, hemoglobin 10.7, hematocrit 32, platelet thousand 351,000, INR 1.2, sodium 125, potassium 5.3, ammonia less than 9, lipase 153, total bilirubin 0.2, alkaline phosphatase 322, AST 50, ALT 13. Denying any shortness of breath, chest pain, nausea, vomiting, fevers or chills. Review of Systems REVIEW OF SYSTEMS: CARDIOPULMONARY: No chest pain or shortness of breath. Gastrointestinal: Abdominal pain and distention. No nausea or vomiting. No hematemesis, coffee-ground emesis. No rectal bleeding, or melena. GENITOURINARY: No dysuria or hematuria. MUSCULOSKELETAL: Reports normal range of motion., Joint pain. SKIN: No rashes. No jaundice. ENDOCRINE: No chills, fevers. No excessive weight gain or loss. No polydipsia or polyuria. PSYCHIATRIC: Unremarkable. NEUROLOGY: Confusion.. Denies dizziness, headache. ENT: Vision unremarkable. CONSTITUTIONAL: No recent weight loss. No fever, chills, night sweats. Past Medical History Past Medical History: Asthma, Deep Vein Thrombosis (DVT), GERD/Reflux, Hyperlip idemia, Hypertension, Osteoarthritis (OA) Additional Past Medical History / Comment(s): Sjorgen's syndrome, sicca syndrome with lung involvement, chronic hepatic failure/ascities with multiple paracentesis/worked up at [facility], abdominal pain, gout, past elevated Ddimer with negative cat scans, ASHD, iron anemia, constipation History of Any Multi-Drug Resistant Organisms: None Reported Past Surgical History: Heart Catheterization, Hysterectomy, Orthopedic Surgery Additional Past Surgical History / Comment(s): Liver bx/diagnostic laparoscopy peritumoral nodule bx both benign, excision gouty deposit 4th R toe, bilateral cataract removals Past Anesthesia/Blood Transfusion Reactions: No Reported Reaction Additional Past Anesthesia/Blood Transfusion Reaction / Comm: Post cath woke diaphoretic with vision change and unable to speak. Increased anxiety prior to surgery. Past Psychological History: Anxiety, Depression Additional Psychological History / Comment(s): Pt resides at [facility]. She mostl y sits on edge of bed and is very sleepy much of the time. Staff occasionally assist her up into wheelchair. She needs assist with ADLs Smoking Status: Never smoker Past Alcohol Use History: None Reported Additional Past Alcohol Use History / Comment(s): Pt started smoking in 1969 and quit in 2014 Past Drug Use History: None Reported - Past Family History Father Family Medical History: Myocardial Infarction ([place]) Medications and Allergies Home Medications Medication Instructions Recorded Confirmed Type Ferrous Sulfate [Iron (65 MG 325 mg PO DAILY@0800 10/21/20 11/03/20 History Elemental)] Ipratropium-Albuterol Nebulize 3 ml INHALATION RT-TID 10/21/20 11/03/20 History [Duoneb 0.5 mg-3 mg/3 ml Soln] Lactose-Reduced Food [Ensure Plus] 120 ml PO TID@0600,0800,2100 10/21/20 11/03/20 History Maalox Plus Suspension 30 ml PO Q6H PRN 10/21/20 11/03/20 History Magnesium Hydroxide [Milk of 7,200 mg PO Q48H PRN 10/21/20 11/03/20 History Magnesia Concentrate] Ondansetron HCl [Zofran] 4 mg PO Q8H PRN 10/21/20 11/03/20 History Pantoprazole Sodium [Protonix] 40 mg PO DAILY@0600 10/21/20 11/03/20 History Rosuvastatin Calcium [Crestor] 5 mg PO HS@209910/21/20 11/03/20 History SILVER sulfADIAZINE Cream 1 applic TOPICAL BID@0900,209910/21/20 11/03/20 History [Silvadene 1% Cream] Sennosides [Senokot] 17.2 mg PO HS@209910/21/20 11/03/20 History Midodrine [ProAmatine] 5 mg PO AC-TID tab 10/24/20 11/03/20 Rx HYDROcodone/APAP 10-325MG [Morley 1 tab PO Q6HR PRN 11/03/20 11/03/20 History 10-325] Liquacel 30 ml PO BID@1200,1700 11/03/20 11/03/20 History Na Phos,M-B/Na Phos,Di-Ba [Fleet 133 ml RECTAL DAILY PRN 11/03/20 11/03/20 History Adult] bisacodyL [Dulcolax] 10 mg RECTAL DAILY PRN 11/03/20 11/03/20 History Allergies Allergy/AdvReac Type Severity Reaction Status Date / Time amoxicillin trihydrate Allergy Vomiting Verified 11/03/20 19:54 [From Augmentin] erythromycin base Allergy Vomiting Verified 11/03/20 19:54 potassium clavulanate Allergy Vomiting Verified 11/03/20 19:54 [From Augmentin] Physical Exam Vitals: Vital Signs Temp Pulse Pulse Resp BP BP Pulse Ox 11/04/20 02:00 97.5 F L 67 16 99/64 93 L 11/03/20 23:25 97.9 F 90 18 122/85 92 L 11/03/20 22:05 112 H 16 103/71 98 11/03/20 21:07 110 H 18 103/74 98 11/03/20 19:02 114 H 18 110/75 99 11/03/20 17:46 115 H 16 112/79 95 11/03/20 17:35 98.0 F 112 H 16 112/86 98 Intake and Output 11/03/20 11/04/20 11/04/20 22:59 06:59 14:59 Other: Voiding Method Diaper Weight 72.575 kg 72.575 kg General appearance: The patient is alert, oriented, in no acute distress. HET: Head is normocephalic and atraumatic. Pupils are equal and reactive. Oropharynx is clear without lesions. Neck: Supple without lymphadenopathy. Trachea midline. Heart: S1 S2. Regular rate and rhythm. Lungs: Clear to auscultation. Abdomen: Soft, diffuse tenderness, distended with bowel sounds. No peritoneal signs. No palpable organomegaly or masses. Skin: No rashes. No jaundice. Extremities: No pedal edema. Neurological: No focal deficits. RN oriented 2. Results CBC & Chem 7: 11/03/20 18:26 11/03/20 18:26 Labs: Abnormal Lab Results - Last 24 Hours (Table) 11/03/20 11/03/20 11/03/20 Range/Units 18:26 18:26 18:26 RBC 3.48 L (3.80-5.40) m/uL Hgb 10.7 L (11.4-16.0) gm/dL Hct 32.0 L (34.0-46.0) % RDW 17.1 H (11.5-15.5) % Basophils # 0.3 H (0-0.2) k/uL PT 12.3 H (9.0-12.0) sec INR 1.2 H (<1.2) APTT 32.6 H (22.0-30.0) sec Sodium 125 L (137-145) mmol/L Potassium 5.2 H (3.5-5.1) mmol/L Carbon Dioxide 19 L (22-30) mmol/L BUN 52 H (7-17) mg/dL Creatinine 2.55 H (0.52-1.04) mg/dL Calcium 7.8 L (8.4-10.2) mg/dL AST 50 H (14-36) U/L Alkaline Phosphatase 322 H (38-126) U/L Total Protein 6.0 L (6.3-8.2) g/dL Albumin 1.9 L (3.5-5.0) g/dL Assessment and Plan (1) Ascites Narrative/Plan: 70-year-old female with multiple medical comorbidities including refractory ascites requiring paracentesis every 10-14 days since initial presentation in 2019. Extensive evaluation including cytology performed on ascites, biopsy of peritoneal nodule negative for malignant process. Patient has had a low SAAG, high-protein ascites and evidence of fibrosis on liver biopsy not consistent with cirrhosis, however decompensated liver disease as been suspected and the patient has been treated with diuretic therapy. Patient was supposed to have outpatient paracentesis today, however yesterday evening was having increased abdominal pain and distention was brought to the emergency department. Plan for therapeutic paracentesis. Diuretics will be deferred to nephrology due to patient's electrolyte imbalance, patient currently has hyponatremia and hyperkalemia. Current Visit: Yes Status: Acute Code(s): R18.8 - OTHER ASCITES SNOMED Code(s): 244059611 (2) Abdominal pain Current Visit: Yes Status: Acute Code(s): R10.9 - UNSPECIFIED ABDOMINAL PAIN SNOMED Code(s): 19138519 (3) Acute on chronic renal failure Current Visit: Yes Status: Acute Code(s): N17.9 - ACUTE KIDNEY FAILURE, UNSPECIFIED; N18.9 - CHRONIC KIDNEY DISEASE, UNSPECIFIED SNOMED Code(s): 230929468 (4) Electrolyte imbalance Current Visit: Yes Status: Acute Code(s): E87.8 - OTH DISORDERS OF ELECTR OLYTE AND FLUID BALANCE, NEC SNOMED Code(s): 859249276 Plan: 1. Symptomatic and supportive care 2. Interventional radiology consult for therapeutic paracentesis 3. Albumin pre-and post paracentesis 4. Repeat CBC, BMP daily 5. Nephrology on consult, will defer diuretic treatment to their recommendations 6. Patient may have low sodium diet Thank you for this consultation, we will continue to follow closely Dr. Venita Melo I agree with the dictator's note, documented as a scribe by Bhavya Rosado.
--- NOTE | 2020-11-04 16:16 | CT ---
EXAMINATION TYPE: CT abdomen pelvis wo con DATE OF EXAM: 11/04/2020 COMPARISON: Ultrasound same date HISTORY: Ascites CT DLP: 996 mGycm Automated exposure control for dose reduction was used. TECHNIQUE: Helical acquisition of images from the lung bases through the pelvis. FINDINGS: 5 basilar effusions are present with associated atelectasis there are changes of anasarca. There are coronary artery calcification Lack of intravenous contrast could compromise sensitivity. LUNG BASES: No significant abnormality is appreciated. AORTA: No significant abnormality is appreciated. LIVER/GB: Liver shows low attenuation. There is a nodular contour. Gallbladder is normal. PANCREAS: No significant abnormality is seen. SPLEEN: Diminutive in size. ADRENALS: No significant abnormality is seen. KIDNEYS: No significant abnormality is seen. REPRODUCTIVE ORGANS: No significant abnormality is seen. URINARY BLADDER: No significant abnormality is seen. BOWEL: Colon shows wall thickening. Diverticular changes associated with the colon. Oral contrast parikh s not coursed entirely through the bowel. FREE AIR: No Free Air is visible. ASCITES: Large amount of ascites is present. PELVIC ADENOPATHY: None visualized. RETROPERITONEAL ADENOPATHY: No Retroperitoneal Adenopathy visible. OSSEOUS STRUCTURES: There are facet arthropathy changes present at the lower lumbar spine. IMPRESSION: CORRELATE FOR CIRRHOSIS WITH ASCITES, THERE MAY BE UNDERLYING HEPATIC STEATOSIS. BILATERAL PLEURAL EF FUSIONS. DIFFICULT TO EXCLUDE COLITIS. ANASARCA.
[2020-11-04] MEDS: ATORVASTATIN 10 MG TAB PO SCH (19:44)
[2020-11-04] MEDS: SENNOSIDES 8.6 MG TAB PO SCH (19:44)
[2020-11-04] MEDS ORDERED: NON FORMULARY DRUG (Lactose-Reduced Food [Ensure Plus] 237 ML Liquid) PO SCH (21:00)
[2020-11-05] MEDS: PANTOPRAZOLE 40 MG TABLET PO SCH (05:02)
[2020-11-05] MEDS: HYDROmorphone 0.5 MG/0.5 ML SYRINGE IVP PRN ×2 (05:28→21:42)
[2020-11-05] MEDS: HYDROcodone/APAP 10-325MG 1 EACH TAB PO PRN (07:06)
[2020-11-05] MEDS: FERROUS SULFATE 325 MG TAB PO SCH (07:07)
[2020-11-05] MEDS: MIDODRINE 5 MG TAB PO SCH ×4 (07:07→16:56)
[2020-11-05] MEDS: IPRATROPIUM-ALBUTEROL 3 ML NEB INHALATION SCH ×3 (07:14→21:54)
--- NOTE | 2020-11-05 08:22 | US ---
Ultrasound-guided paracentesis. DATE OF EXAM: 11/04/2020 CLINICAL HISTORY: Ascites The procedure was discussed with the patient. The risks, complications, benefits, and alternatives we re discussed and any questions were answered. Informed consent was obtained. The patient was placed s upine on the ultrasound table and prepped and draped in the usual sterile fashion. All elements of maximal barrier technique were utilized. Under ultrasound guidance, access into the right lower quadrant was obtained, via the paracentesis catheter system and direct ultrasound guidanc e. Approximately 5.3 liters of straw-colored fluid was removed. The patient was stable throughout the pr ocedure and remained stable upon discharge from Department of Radiology. IMPRESSION: Successful paracentesis under ultrasound guidance.
[2020-11-05] MEDS: LACTULOSE 20 GM/30 ML CUP PO SCH ×2 (09:26→21:41)
[2020-11-05] MEDS: methylPREDNISolone SOD SUCCI 125 MG/2 ML VIAL IV SCH ×3 (09:27→21:42)
[2020-11-05] MEDS: TRIAMCINOLONE 0.1% CREAM 80 GM TUBE TOPICAL SCH ×3 (09:30→21:42)
[2020-11-05 10:25] LABS: African American GFR (CKD) 23 (>60 ml/min/1.73 sqM); Anion Gap 8 mmol/L; Blood Urea Nitrogen 55 mg/dL (7-17); Calcium 7.9 mg/dL (8.4-10.2); Carbon Dioxide 18 mmol/L (22-30); Chloride 103 mmol/L (98-107); Glucose 54 mg/dL (74-99); Non-African American GFR(CKD) 20 (>60 ml/min/1.73 sqM); Potassium 5.2 mmol/L (3.5-5.1); Sodium 129 mmol/L (137-145)
[2020-11-05 10:29] LABS: HCT 23.2 % (37.2-46.3); HGB 8.1 g/dL (12.0-15.0); MCH 30.2 pg (27.0-32.0); MCHC 34.9 g/dL (32.0-37.0); MCV 86.6 fL (80.0-97.0); Mean Platelet Volume 11.5 fL (9.5-12.2); Platelet Count 217 X 10*3/uL (140-440); RBC 2.68 X 10*6/uL (4.10-5.20); RDW 18.4 % (11.5-14.5); WBC 7.57 X 10*3/uL (4.50-10.00)
[2020-11-05] MEDS ORDERED: DEXTROSE 50% SYRINGE 50 ML IVP STA (10:30)
[2020-11-05] MEDS ORDERED: DEXTROSE 4 GM CHEWABLE PO STA (10:38)
[2020-11-05 10:42] LABS: Glucose,Whole Blood 55 mg/dL (75-99)
[2020-11-05 11:06] LABS: Glucose,Whole Blood 61 mg/dL (75-99)
[2020-11-05 11:19] LABS: Glucose,Whole Blood 37 mg/dL (75-99)
[2020-11-05 11:19] LABS: Glucose,Whole Blood 37 mg/dL (75-99)
--- NOTE | 2020-11-05 11:24 | XR ---
EXAMINATION TYPE: XR chest 1V portable DATE OF EXAM: 11/05/2020 COMPARISON: Chest x-ray 10/23/2020, CT 11/04/2020 HISTORY: This of breath, ascites and pain TECHNIQUE: Single frontal view of the chest is obtained. FINDINGS: Bilateral pleural effusions are present. No evident pneumothorax. Bones are stable. Cardia c mediastinal silhouette is stable. IMPRESSION: Pleural effusions and associated atelectasis, difficult to exclude pneumonia.
[2020-11-05 11:34] LABS: ALT 13 U/L (4-34); AST 51 U/L (14-36); Albumin 2.4 g/dL (3.5-5.0); Albumin/Globulin Ratio 0.6; Alkaline Phosphatase 332 U/L (38-126); Globulin 3.9 g/dL; Total Bilirubin 0.3 mg/dL (0.2-1.3); Total Protein 6.3 g/dL (6.3-8.2)
[2020-11-05 11:38] LABS: Glucose,Whole Blood 143 mg/dL (75-99)
[2020-11-05 11:38] LABS: Glucose,Whole Blood 52 mg/dL (75-99)
[2020-11-05 12:01] LABS: Glucose,Whole Blood 149 mg/dL (75-99)
--- NOTE | 2020-11-05 12:07 | P.PN ---
Subjective Progress Note Date: 11/05/20 HISTORY OF PRESENT ILLNESS 70 years old female patient one of my clinic patient with past medical history of gout, hypertension, Sjogren syndrome and suspected decompensa konstantin liver failure with the recurrent ascites seen almost monthly in the hospital. Her initial presentation was 04/2024 keep his amount of fluid remaining high-protein ascites. Patient was transferred to [facility] for further workup and underwent liver biopsy as well as diagnostic laparoscopy with biopsy of the peritumoral nodule which all came as negative. Malignancy was ruled out multiple times by cytology from patient's ascites fluid. She was hospitalized multiple times in June, July and has been requiring paracentesis almost 10-14 days. Patient is very well-known to the service and was last seen in the hospital on 09/14 underwent paracentesis on 09/15/20, 6 L were removed and patient was given some albumin. Patient was started on diuretic therapy and was sent to [facility]. Patient had a liver biopsy that suggestive fibrosis but no cirrhosis of liver. Multiple other etiology has been worked up and has come as negative. Patient's presentation is on assumed to be secondary to chronic liver disease. Patient was seen by Dr. Van outpatient and had a syncopal episode during her visit. druing her last admisssion 10/22/20 She was sent to the ER for evaluation patient was found to be hyportensive, 65/42. EKG was obtained that suggested first-degree AV block with no ectopy. No abdominal ST changes or T-wave inversions noted. Patient given 1-1/2 L of IV fluid with improvement of systolic pressures to the low , sodium 121 potassium 5.6 BUN 47 creatinine 2.28 troponin 0.0 2 repeat lactic acid after resuscitation is 1.3 urinalysis is negative for any infection. Chest x-ray suggestive of possible lower lobe infiltrate versus interstitial edema. She comes back to the emergency room from [facility], secondary to abdominal distention, increasing abdominal discomfort, with tense ascites, patient has weight loss, noted to have some bruising in the upper arms on this current admission, however patient denies any petechiae, or hematomas, and no epistaxis no bleeding in the urine, and in the stool. Admission is for tense ascites, with consult to gastroenterology, and Dr. Biggs for repeat abdominal paracentesis Patient's last paracentesis was 10/24/2020. request to repeat ct abdomen pelvis today for monitoring, oral contrast only. creat elevated 11/05: CAT scan of the abdomen and pelvis without contrast completed yesterday revealed cirrhosis with ascites, underlying hepatic steatosis. Bilateral pleural effusions. Difficult to exclude colitis. Anasarca. Patient is status post paracentesis with removal of 5.3 L. She is currently on Rocephin. Patient's abdomen is less distended but continues to complain of significant pain. She also complains of rash. Solu-Medrol 60 mg IV every 6 hours and a Kenalog cream have been ordered. Patient states she is eating very little. We will add in Lasix and Aldactone. Chest x-ray reveals pleural effusions and associated atelectasis, difficult to exclude pneumonia. Menezes catheter was placed due to urinary retention. Patient has been seen and followed by GI and nephrology REVIEW OF SYSTEMS Constitutional: No fever, no chills, no night sweats. No weight change. Reports weakness, Reports fatigue Reports lethargy. Reports daytime sleepiness. EENT: No headache. No blurred vision or double vision, no loss of vision. No loss of Hearing, no ringing in the ears, no dizziness. No nasal drainage or congestion. No epistaxis. No sore throat. Lungs: No shortness of breath, cough, no sputum production. No wheezing. Cardiovascular: No chest pain, no lower extremity edema. No palpitations. No paroxysmal nocturnal dyspnea. No orthopnea. No lightheadedness or dizziness. No syncopal episodes. Abdominal: Reports abdominal pain. Reports abdominal distention/bloating. No nausea, vomiting. No diarrhea. Reports constipation. No bloody or tarry stools. Reports loss of appetite. Genitourinary: No dysuria, increased frequency, urgency. No urinary retention. Musculoskeletal: Reports myalgias. Reports muscle weakness, Reports gait dysfunction, no frequent falls. No back pain. No neck pain. Integumentary: No wounds, no lesions. No rash or pruritus. No unusual bruising. No change in hair or nails. Neurologic: No aphasia. No facial droop. Mild change in mentation. No head injury. No headache. No paralysis. No paresthesia. Psychiatric: No depression. No anxiety. No mood swings. Endocrine: No abnormal blood sugars. No weight change. PHYSICAL EXAMINATION Gen: This is a 70 year old female. She is resting in bed and appears to be comfortable. HEENT: Head is atraumatic, normocephalic. Pupils equal, round. Sclerae is anicteric. NECK: Supple. No JVD. No lymphadenopathy. No thyromegaly. LUNGS: Clear to auscultation. No wheezes or rhonchi. No intercostal retractions. HEART: Regular rate and rhythm. No murmur. ABDOMEN: Soft. Bowel sounds are present. No masses. Mild generalized tende rness. EXTREMITIES: No pedal edema. No calf tenderness. NEUROLOGICAL: Patient is awake, alert and oriented to person and place. Cranial nerves 2 through 12 are grossly intact. ASSESSMENT AND PLAN 1. Tense ascites, caused by from fatty liver chronic liver disease, no diagnosis of cirrhosis based from liver biopsy at [facility]. Patient is status post paracentesis with removal of 5.3 L. Consult with GI appreciated. Lasix 40 mg oral daily and Aldactone 25 mg daily both at noon will be started today. Patient is status post albumin. Continue ceftriaxone. 2. Acute kidney injury secondary to ATN over chronic kidney disease stage III on Aldactone on Lasix. Baseline creatinines 1.6 Hepatorenal syndrome is a possibility. Repeat CMP ordered. Avoid nephrotoxic agents. Patient was seen and followed by nephrology. 3. Severe protein calorie malnutrition, protein supplementation, significant cachexia. 4. Hyperkalemia secondary to acute kidney injury. Repeat CMP ordered. 5. Decompensated liver failure with recurrent ascitis likely secondary to chronic liver disease. Liver biopsy and peritoneal biopsy has been negative. Cytology negative. TB negative. SAAG less than 1.1 with high protein ascites. Pain management with [place]. 6. Metabolic encephalopathy secondary to liver disease. Lactulose has been ordered by GI. 7. Urinary retention requiring Menezes catheter placement. 8. History of elevated CA 125, with prior history of KOBE/BSO, monitor panel 9. Atherosclerotic heart disease continue Coreg along with atorvastatin, Aldactone and furosemide 10. Hyperlipidemia continue Crestor at 5 mg daily 11. Chronic iron deficiency anemia related to renal and liver disease. Continue daily CBC. 12. Recurrent depression not on any medication currently 13. Constipation hold stool softener at this moment. 14. CODE STATUS NO code 15. GI prophylaxis on Protonix 16. DVT prophylaxis with heparin every 12 17. Rash. Patient started on IV Solu-Medrol 60 mg every 6 hours and Kenalog cream. DISCHARGE PLAN Return to [facility]. Impression and plan of care have been directed as dictated by the signing physician. Kenisha Lew nurse practitioner acting as scribe for signing physician. Objective - Vital Signs Vital signs: Vital Signs Temp 97.5 F L 11/05/20 07:00 Pulse 92 11/05/20 07:26 Resp 16 11/05/20 07:33 BP 91/56 11/05/20 07:00 Pulse Ox 99 11/05/20 07:00 Intake & Output 11/04/20 11/05/20 11/05/20 18:59 06:59 18:59 Intake Total 0 Balance 0 Weight 72.575 kg Intake: Oral 0 Other: Voiding Method Diaper Diaper Diaper # Voids 1 1 # Bowel Movements 1 1 - Labs CBC & Chem 7: 11/05/20 04:53 11/05/20 09:07
--- NOTE | 2020-11-05 12:18 | P.PN ---
Subjective Progress Note Date: 11/05/20 Principal diagnosis: Ascites The patient was seen and examined lying in bed, she is being fed breakfast. States she is having a hard time chewing and has a decreased appetite. Y day she underwent paracentesis, report is pending. She is denying any nausea or vomiting. She still has abdominal discomfort. She is confused, and moaning. Objective - Vital Signs Vital signs: Vital Signs Temp 97.5 F L 11/05/20 07:00 Pulse 92 11/05/20 07:26 Resp 16 11/05/20 07:33 BP 91/56 11/05/20 07:00 Pulse Ox 99 11/05/20 07:00 Intake & Output 11/04/20 11/05/20 11/05/20 18:59 06:59 18:59 Intake Total 0 Balance 0 Weight 72.575 kg Intake: Oral 0 Other: Voiding Method Diaper Diaper Diaper # Voids 1 1 # Bowel Movements 1 1 - Exam General appearance: The patient is alert, oriented 2, but confused, appears in no acute distress. HET: Head is normocephalic and atraumatic. Conjunctiva pink. Sclera anicteric. Neck: Supple without lymphadenopathy. Abdomen: Soft, diffuse tenderness, distention improved with bowel sounds. No guarding or rigidity. Extremities: Normal skin color and turgor. No pedal edema Skin: No rashes, no jaundice Neurological: No focal deficits. Alert and oriented 2. With some confusion. - Labs CBC & Chem 7: 11/05/20 04:53 11/05/20 09:07 Assessment and Plan (1) Ascites Narrative/Plan: 70-year-old female with multiple medical comorbidities including refractory ascites requiring paracentesis every 10-14 days since initial presentation in 2019. Extensive evaluation including cytology performed on ascites, biopsy of peritoneal nodule negative for malignant process. Patient has had a low SAAG, high-protein ascites and evidence of fibrosis on liver biopsy not consistent with cirrhosis, however decompensated liver disease as been suspected and the patient has been treated with diuretic therapy. Patient was supposed to have outpatient paracentesis today, however yesterday evening was having increased abdominal pain and distention was brought to the emergency department. Plan for therapeutic paracentesis. Diuretics will be deferred to nephrology due to patient's electrolyte imbalance, patient currently has hyponatremia and hyperkalemia. Current Visit: Yes Status: Acute Code(s): R18.8 - OTHER ASCITES SNOMED Code(s): 473396587 (2) Abdominal pain Narrative/Plan: Will begin patient on Rocephin 1 g daily for prophylaxis of spontaneous bacterial peritonitis. Current Visit: Yes Status: Acute Code(s): R10.9 - UNSPECIFIED ABDOMINAL PAIN SNOMED Code(s): 01325268 (3) Altered mental status Narrative/Plan: Patient with altered mental status, ammonia less than 9. However will begin patient on lactulose 20 mg twice a day. Current Visit: No Status: Acute Code(s): R41.82 - ALTERED MENTAL STATUS, UNSPECIFIED SNOMED Code(s): 909135412 (4) Acute on chronic renal failure Current Visit: Yes Status: Acute Code(s): N17.9 - ACUTE KIDNEY FAILURE, UN SPECIFIED; N18.9 - CHRONIC KIDNEY DISEASE, UNSPECIFIED SNOMED Code(s): 23 2600694 (5) Electrolyte imbalance Current Visit: Yes Status: Acute Code(s): E87.8 - OTH DISORDERS OF EL ECTROLYTE AND FLUID BALANCE, NEC SNOMED Code(s): 012574511 Plan: 1. Symptomatic and supportive care 2. Smiley is status post paracentesis 3. Repeat CBC, BMP daily 4. Nephrology on consult, will defer diuretic treatment to their recommendati ons 5. Patient may have low sodium diet 6. We'll add on lactulose 20 g twice a day for altered mental status 7. Will add Rocephin 1 g every 24 hours due to abdominal pain, prophylaxis for possible spontaneous bacterial peritonitis Thank you for this consultation, we will continue to follow closely Dr. Venita Melo I agree with the dictator's note, documented as a scribe by Bhavya Rosado.
[2020-11-05 12:30] LABS: Basophils # (M) 0 X 10*3/uL (0.00-0.10); Eosinophils # (M) 0 X 10*3/uL (0.04-0.35); Lymphocytes # (M) 1.74 X 10*3/uL (0.90-5.00); Metamyelocytes % 4 % (0-0); Monocytes # (M) 0.53 X 10*3/uL (0.20-1.00); Myelocytes % 2 % (0-0); Neutrophils # (M) 4.84 X 10*3/uL (2.00-8.90); Neutrophils % (M) 64 %
[2020-11-05] MEDS: SPIRONOLACTONE 25 MG TAB PO SCH (13:39)
[2020-11-05] MEDS: FUROSEMIDE 40 MG TAB PO SCH (13:39)
--- NOTE | 2020-11-05 14:57 | PN ---
PROGRESS NOTE Patient is seen for followup for acute kidney injury. Somehow the labs ordered yesterday were not processed and this morning labs show some improvement with serum creatinine down to 2.4 and sodium at 129 from 125 on November 03. Urine output has been on the lower side. A bladder scan has been ordered and if there is evidence of retention, a Menezes catheter will be placed. PHYSICAL EXAMINATION: On examination today, the patient is awake and comfortable. She is not in any acute distress. She has been confused at times. This morning blood pressure was 91/56, heart rate 92 per minute. She is afebrile. Examination of the heart S1, S2. Examination of the lungs, bilateral breath sounds are heard. ABDOMEN: Soft, nontender, distended. Exam of lower extremities shows no significant edema. [employer] exam shows patient moving all 4 extremities. LAB: From today show hemoglobin 8.1, sodium 129, potassium 5.2, chloride 103, CO2 is 18, BUN 55, creatinine 2.4. ASSESSMENT: 1. Acute kidney injury most likely acute tubular necrosis associated with hypotension, hypoperfusion. Rule out urine retention. Menezes catheter will be placed. I will continue with the midodrine. I will hold off on IV fluids. Check chest x-ray and can resume Lasix based on results of chest x-ray. 2. Mild metabolic acidosis associated with renal failure. 3. Chronic liver disease with recurrent ascites, status post liver biopsy showing fatty liver disease, status post paracentesis. 4. Elevated CA-125, prior history of total abdominal hysterectomy and bilateral salpingo-oophorectomy. 5. Hyponatremia associated with chronic liver disease currently improved. PLAN: Place Menezes catheter if bladder scan shows significant amount of urine. Check chest x- ray. Can resume Lasix as chest x-ray did show evidence of pleural effusions. Encourage increased oral intake. MMODL / IJN: [id number] /
[2020-11-05 17:21] LABS: Glucose,Whole Blood 96 mg/dL (75-99)
[2020-11-05 18:04] LABS: African American GFR (CKD) 19.8 (60.0-200.0); Anion Gap 12.3 mmol/L (4.00-12.00); BUN/Creat Ratio 20.74 Ratio (12.00-20.00); Calcium 7.3 mg/dL (8.7-10.3); Carbon Dioxide 15.7 mmol/L (21.6-31.8); Potassium 5.2 mmol/L (3.5-5.5)
[2020-11-05 20:47] LABS: Glucose,Whole Blood 104 mg/dL (75-99)
[2020-11-05] MEDS: ATORVASTATIN 10 MG TAB PO SCH (21:41)
[2020-11-05] MEDS: SENNOSIDES 8.6 MG TAB PO SCH (21:41)
[2020-11-06] MEDS: PANTOPRAZOLE 40 MG TABLET PO SCH (04:59)
[2020-11-06] MEDS: HYDROmorphone 0.5 MG/0.5 ML SYRINGE IVP PRN (04:59)
[2020-11-06 06:54] LABS: Glucose,Whole Blood 108 mg/dL (75-99)
[2020-11-06] MEDS: TRIAMCINOLONE 0.1% CREAM 80 GM TUBE TOPICAL SCH ×3 (07:27→20:43)
[2020-11-06] MEDS: LACTULOSE 20 GM/30 ML CUP PO SCH ×2 (07:28→20:43)
[2020-11-06] MEDS: FERROUS SULFATE 325 MG TAB PO SCH (07:28)
[2020-11-06] MEDS: MIDODRINE 5 MG TAB PO SCH ×3 (07:28→15:15)
[2020-11-06] MEDS: IPRATROPIUM-ALBUTEROL 3 ML NEB INHALATION SCH ×3 (08:56→20:56)
[2020-11-06 11:22] LABS: Glucose,Whole Blood 140 mg/dL (75-99)
[2020-11-06 11:28] LABS: INR 1.25 (0.90-1.11); Prothrombin Time 13.4 sec (9.9-11.9)
[2020-11-06] MEDS: SPIRONOLACTONE 25 MG TAB PO SCH (12:07)
[2020-11-06] MEDS: FUROSEMIDE 40 MG TAB PO SCH (12:07)
--- NOTE | 2020-11-06 12:40 | P.PN ---
Subjective Progress Note Date: 11/06/20 Principal diagnosis: Ascites Patient seen and examined lying in bed. She was transferred to the medical unit due to her confusion. She is status post paracentesis with 5.3 L removed. The CA 125 was ordered per primary medicine and elevated at 90.2. Patient to use to be confused, does state she is in poor., However unaware of her date or year. She is moaning with touch to her arms and legs. She is not eating well, possibly due to not having her lower denture. Primary care team discussed hospice care with patient, she declined however was made a no CODE STATUS. Objective - Vital Signs Vital signs: Vital Signs Temp 98.7 F 11/06/20 07:55 Pulse 92 11/06/20 08:56 Resp 18 11/06/20 07:55 BP 90/66 11/06/20 07:55 Pulse Ox 96 11/06/20 08:56 Intake & Output 11/05/20 11/06/20 11/06/20 18:59 06:59 18:59 Intake Total 20 600 Output Total 400 Balance -380 600 Intake: Oral 20 600 Output: Urine 400 Other: Voiding Method Indwelling Catheter Indwelling Catheter # Voids 2 # Bowel Movements 1 - Exam General appearance: The patient is alert, oriented 2, but confused, appears in no acute distress. HET: Head is normocephalic and atraumatic. Conjunctiva pink. Sclera anicteric. Neck: Supple without lymphadenopathy. Abdomen: Soft, nontender, distention improved with bowel sounds. No guarding or rigidity. Extremities: Normal skin color and turgor. No pedal edema Skin: No rashes, no jaundice Neurological: No focal deficits. Alert and oriented 2. With some confusion. - Labs CBC & Chem 7: 11/06/20 06:09 11/05/20 09:07 Labs: Abnormal Lab Results - Last 24 Hours (Table) 11/04/20 11/05/20 11/05/20 Range/Units 18:03 04:53 04:53 RBC 2.68 L (4.10-5.20) X 10*6/uL Hgb 8.1 L (12.0-15.0) g/dL Hct 23.2 L (37.2-46.3) % RDW 18.4 H (11.5-14.5) % Absolute Nucleated RBC 0.07 H (0.00-0.00) X 10*3/uL Metamyelocytes % 4 H (0-0) % Myelocytes % 2 H (0-0) % Eosinophils # (Manual) 0 L (0.04-0.35) X 10*3/uL NRBC/100 WBC Diff 0.9 H (0.0-0.0) /100 WBCS Sodium 128 L (135-145) mmol/L Potassium (3.5-5.1) mmol/L Carbon Dioxide 15.7 L (21.6-31.8) mmol/L Anion Gap 12.30 H (4.00-12.00) mmol/L BUN 56.0 H (9.0-27.0) mg/dL Creatinine 2.7 H (0.6-1.5) mg/dL Est GFR (CKD-EPI)AfAm 19.8 L (60.0-200.0) Est GFR (CKD-EPI)NonAf 17.0 L (60.0-200.0) BUN/Creatinine Ratio 20.74 H (12.00-20.00) Ratio Glucose 47 L* (70-110) mg/dL POC Glucose (mg/dL) (75-99) mg/dL Calcium 7.3 L (8.7-10.3) mg/dL AST (14-36) U/L Alkaline Phosphatase (38-126) U/L Albumin (3.5-5.0) g/dL CA 125 Antigen 90.2 H (0.0-30.1) U/mL 11/05/20 11/05/20 11/05/20 Range/Units 09:07 10:31 10:55 RBC (4.10-5.20) X 10*6/uL Hgb (12.0-15.0) g/dL Hct (37.2-46.3) % RDW (11.5-14.5) % Absolute Nucleated RBC (0.00-0.00) X 10*3/uL Metamyelocytes % (0-0) % Myelocytes % (0-0) % Eosinophils # (Manual) (0.04-0.35) X 10*3/uL NRBC/100 WBC Diff (0.0-0.0) /100 WBCS Sodium 129 L (135-145) mmol/L Potassium 5.2 H (3.5-5.1) mmol/L Carbon Dioxide 18 L (21.6-31.8) mmol/L Anion Gap (4.00-12.00) mmol/L BUN 55 H (9.0-27.0) mg/dL Creatinine 2.40 H (0.6-1.5) mg/dL Est GFR (CKD-EPI)AfAm (60.0-200.0) Est GFR (CKD-EPI)NonAf (60.0-200.0) BUN/Creatinine Ratio (12.00-20.00) Ratio Glucose 54 L (70-110) mg/dL POC Glucose (mg/dL) 55 L 61 L (75-99) mg/dL Calcium 7.9 L (8.7-10.3) mg/dL AST 51 H (14-36) U/L Alkaline Phosphatase 332 H (38-126) U/L Albumin 2.4 L (3.5-5.0) g/dL CA 125 Antigen (0.0-30.1) U/mL 11/05/20 11/05/20 11/05/20 Range/Units 11:12 11:13 11:15 RBC (4.10-5.20) X 10*6/uL Hgb (12.0-15.0) g/dL Hct (37.2-46.3) % RDW (11.5-14.5) % Absolute Nucleated RBC (0.00-0.00) X 10*3/uL Metamyelocytes % (0-0) % Myelocytes % (0-0) % Eosinophils # (Manual) (0.04-0.35) X 10*3/uL NRBC/100 WBC Diff (0.0-0.0) /100 WBCS Sodium (135-145) mmol/L Potassium (3.5-5.1) mmol/L Carbon Dioxide (21.6-31.8) mmol/L Anion Gap (4.00-12.00) mmol/L BUN (9.0-27.0) mg/dL Creatinine (0.6-1.5) mg/dL Est GFR (CKD-EPI)AfAm (60.0-200.0) Est GFR (CKD-EPI)NonAf (60.0-200.0) BUN/Creatinine Ratio (12.00-20.00) Ratio Glucose (70-110) mg/dL POC Glucose (mg/dL) 37 L 37 L 52 L (75-99) mg/dL Calcium (8.7-10.3) mg/dL AST (14-36) U/L Alkaline Phosphatase (38-126) U/L Albumin (3.5-5.0) g/dL CA 125 Antigen (0.0-30.1) U/mL 11/05/20 11/05/20 11/05/20 Range/Units 11:30 12:00 20:46 RBC (4.10-5.20) X 10*6/uL Hgb (12.0-15.0) g/dL Hct (37.2-46.3) % RDW (11.5-14.5) % Absolute Nucleated RBC (0.00-0.00) X 10*3/uL Metamyelocytes % (0-0) % Myelocytes % (0-0) % Eosinophils # (Manual) (0.04-0.35) X 10*3/uL NRBC/100 WBC Diff (0.0-0.0) /100 WBCS Sodium (135-145) mmol/L Potassium (3.5-5.1) mmol/L Carbon Dioxide (21.6-31.8) mmol/L Anion Gap (4.00-12.00) mmol/L BUN (9.0-27.0) mg/dL Creatinine (0.6-1.5) mg/dL Est GFR (CKD-EPI)AfAm (60.0-200.0) Est GFR (CKD-EPI)NonAf (60.0-200.0) BUN/Creatinine Ratio (12.00-20.00) Ratio Glucose (70-110) mg/dL POC Glucose (mg/dL) 143 H 149 H 104 H (75-99) mg/dL Calcium (8.7-10.3) mg/dL AST (14-36) U/L Alkaline Phosphatase (38-126) U/L Albumin (3.5-5.0) g/dL CA 125 Antigen (0.0-30.1) U/mL 11/06/20 Range/Units 06:52 RBC (4.10-5.20) X 10*6/uL Hgb (12.0-15.0) g/dL Hct (37.2-46.3) % RDW (11.5-14.5) % Absolute Nucleated RBC (0.00-0.00) X 10*3/uL Metamyelocytes % (0-0) % Myelocytes % (0-0) % Eosinophils # (Manual) (0.04-0.35) X 10*3/uL NRBC/100 WBC Diff (0.0-0.0) /100 WBCS Sodium (135-145) mmol/L Potassium (3.5-5.1) mmol/L Carbon Dioxide (21.6-31.8) mmol/L Anion Gap (4.00-12.00) mmol/L BUN (9.0-27.0) mg/dL Creatinine (0.6-1.5) mg/dL Est GFR (CKD-EPI)AfAm (60.0-200.0) Est GFR (CKD-EPI)NonAf (60.0-200.0) BUN/Creatinine Ratio (12.00-20.00) Ratio Glucose (70-110) mg/dL POC Glucose (mg/dL) 108 H (75-99) mg/dL Calcium (8.7-10.3) mg/dL AST (14-36) U/L Alkaline Phosphatase (38-126) U/L Albumin (3.5-5.0) g/dL CA 125 Antigen (0.0-30.1) U/mL Assessment and Plan (1) Ascites Narrative/Plan: 70-year-old female with multiple medical comorbidities including refractory ascites requiring paracentesis every 10-14 days since initial presentation in 2019. Extensive evaluation including cytology performed on ascites, biopsy of peritoneal nodule negative for malignant process. Patient has had a low SAAG, high-protein ascites and evidence of fibrosis on liver biopsy not consistent with cirrhosis, however decompensated liver disease as been suspected and the patient has been treated with diuretic therapy. Patient was supposed to have outpatient paracentesis today, however yesterday evening was having increased abdominal pain and distention was brought to the emergency department. Plan for therapeutic paracentesis. Diuretics will be deferred to nephrology due to patient's electrolyte imbalance, patient currently has hyponatremia and hyperkalemia. Current Visit: Yes Status: Acute Code(s): R18.8 - OTHER ASCITES SNOMED Code(s): 315409286 (2) Abdominal pain Narrative/Plan: Will begin patient on Rocephin 1 g daily for prophylaxis of spontaneous bacterial peritonitis. Current Visit: Yes Status: Acute Code(s): R10.9 - UNSPECIFIED ABDOMINAL PAIN SNOMED Code(s): 86573290 (3) Altered mental status Narrative/Plan: Patient with altered mental status, ammonia less than 9. However will begin patient on lactulose 20 mg twice a day. Current Visit: No Status: Acute Code(s): R41.82 - ALTERED MENTAL STATUS, UNSPECIFIED SNOMED Code(s): 278344625 (4) Acute on chronic renal failure Current Visit: Yes Status: Acute Code(s): N17.9 - ACUTE KIDNEY FAILURE, UNSPECIFIED; N18.9 - CHRONIC KIDNEY DISEASE, UNSPECIFIED SNOMED Code(s): 163606083 (5) Electrolyte imbalance Current Visit: Yes Status: Acute Code(s): E87.8 - OTH DISORDERS OF ELECTROLYTE AND FLUID BALANCE, NEC SNOMED Code(s): 325981064 Plan: 1. Symptomatic and supportive care 2. Patient is status post paracentesis 3. Repeat CBC, BMP daily 4. Nephrology on consult, will defer diuretic treatment to their recommendations 5. Patient may have low sodium diet, will change to pureed diet 6. Continue lactulose 20 g twice a day for altered mental status 7. Continue Rocephin 1 g every 24 hours due to abdominal pain, prophylaxis for possible spontaneous bacterial peritonitis 8. Patient has poor prognosis, would recommend considering [facility], otherwise she will need outpatient follow-up with outpatient paracentesis likely every 10-14 days Thank you for this consultation, we will continue to follow closely Dr. Venita Melo I agree with the dictator's note, documented as a scribe by Bhavya Rosado.
[2020-11-06 12:46] LABS: HGB 9.7 g/dL (12.0-15.0); MCH 30.4 pg (27.0-32.0); MCHC 34.6 g/dL (32.0-37.0); MCV 87.8 fL (80.0-97.0); Mean Platelet Volume 11.2 fL (9.5-12.2); Platelet Count 286 X 10*3/uL (140-440); RBC 3.19 X 10*6/uL (4.10-5.20); RDW 19.2 % (11.5-14.5); WBC 6.57 X 10*3/uL (4.50-10.00)
--- NOTE | 2020-11-06 13:58 | PN ---
PROGRESS NOTE Patient is seen for followup for acute kidney injury. She has underlying chronic liver disease secondary to fatty liver with recurrent ascites. The patient has some degree of chronic kidney disease with serum creatinine previously staying about 1.4-1.6, however, most recently it has been about 2.7-2.5. She had acute kidney injury which improved with creatinine down to 2.4 from 2.7 previously. No labs available from today. The patient's blood pressure has been low staying in 90-96 mmHg. She is maintained on midodrine. Oral Lasix was restarted yesterday. PHYSICAL EXAMINATION: On examination today, blood pressure 90/66, heart rate 74 per minute. Patient is afebrile. Examination of the heart S1, S2. Examination of the lungs, decreased breath sounds at the bases. Abdomen is soft, nontender and shows evidence of ascites. Examination of lower extremities shows chronic skin changes, trace edema. D[employer]ER exam grossly intact, patient is confused. LABS: Not available from today. ASSESSMENT: 1. Acute kidney injury, acute tubular necrosis, associated with hypotension. Renal function was better yesterday. Labs are pending from today. Patient is maintained on midodrine. There was concern for urine retention. Currently she has an indwelling Menezes catheter. 2. Chronic liver disease with recurrent ascites, status post liver biopsy which showed fatty liver disease and patient has had paracentesis. 3. Elevated CA-125 with history of abdominal hysterectomy and bilateral salpingo- oophorectomies. 4. Hyponatremia associated with chronic liver disease, currently improved. 5. Mild hyperkalemia associated with acute kidney injury and patient is also maintained on Aldactone. Serum potassium is fairly stable. PLAN: Continue oral Lasix and spironolactone for now. Check labs today. Add a magnesium level to labs from today. MMODL / IJN: [id number] /
[2020-11-06 14:38] LABS: African American GFR (CKD) 28.4 (60.0-200.0); Albumin 1.9 g/dL (3.80-4.90); Albumin/Globulin Ratio 0.56 (1.60-3.17); Anion Gap 8.3 mmol/L (4.00-12.00); Calcium 7.2 mg/dL (8.7-10.3); Carbon Dioxide 19.7 mmol/L (21.6-31.8); Globulin 3.4 g/dL (1.6-3.3); Non-African American GFR(CKD) 24.5 (60.0-200.0); Potassium 5.2 mmol/L (3.5-5.5); Total Bilirubin 0.2 mg/dL (0.3-1.2); Total Protein 5.3 g/dL (6.2-8.2)
--- NOTE | 2020-11-06 15:48 | P.PN ---
Subjective Progress Note Date: 11/06/20 HISTORY OF PRESENT ILLNESS 70 years old female patient one of my clinic patient with past medical history of gout, hypertension, Sjogren syndrome and suspected decompens ated liver failure with the recurrent ascites seen almost monthly in the hospital. Her initial presentation was 04/2024 keep his amount of fluid remaining high-protein ascites. Patient was transferred to [facility] for further workup and underwent liver biopsy as well as diagnostic laparoscopy with biopsy of the peritumoral nodule which all came as negative. Malignancy was ruled out multiple times by cytology from patient's ascites fluid. She was hospitalized multiple times in June, July and has been requiring paracentesis almost 10-14 days. Patient is very well-known to the service and was last seen in the hospital on 09/14 underwent paracentesis on 09/15/20, 6 L were removed and patient was given some albumin. Patient was started on diuretic therapy and was sent to [facility]. Patient had a liver biopsy that suggestive fibrosis but no cirrhosis of liver. Multiple other etiology has been worked up and has come as negative. Patient's presentation is on assumed to be secondary to chronic liver disease. Patient was seen by Dr. Van outpatient and had a syncopal episode during her visit. druing her last admisssion 10/22/20 She was sent to the ER for evaluation patient was found to be hyportensive, 65/42. EKG was obtained that suggested first-degree AV block with no ectopy. No abdominal ST changes or T-wave inversions noted. Patient given 1-1/2 L of IV fluid with improvement of systolic pressures to the low , sodium 121 potassium 5.6 BUN 47 creatinine 2.28 troponin 0.0 2 repeat lactic acid after resuscitation is 1.3 urinalysis is negative for any infection. Chest x-ray suggestive of possible lower lobe infiltrate versus interstitial edema. She comes back to the emergency room from [facility], secondary to abdominal distention, increasing abdominal discomfort, with tense ascites, patient has weight loss, noted to have some bruising in the upper arms on this current admission, however patient denies any petechiae, or hematomas, and no epistaxis no bleeding in the urine, and in the stool. Admission is for tense ascites, with consult to gastroenterology, and Dr. Biggs for repeat abdominal paracentesis Patient's last paracentesis was 10/24/2020. request to repeat ct abdomen pelvis today for monitoring, oral contrast only. creat elevated 11/05: CAT scan of the abdomen and pelvis without contrast completed yesterday revealed cirrhosis with ascites, underlying hepatic steatosis. Bilateral pleural effusions. Difficult to exclude colitis. Anasarca. Patient is status post paracentesis with removal of 5.3 L. She is currently on Rocephin. Patient's abdomen is less distended but continues to complain of significant fredy n. She also complains of rash. Solu-Medrol 60 mg IV every 6 hours and a Kenalog cream have been ordered. Patient states she is eating very little. We will add in Lasix and Aldactone. Chest x-ray reveals pleural effusions and associated atelectasis, difficult to exclude pneumonia. Menezes catheter was placed due to urinary retention. Patient has been seen and followed by GI and nephrology 11/06: Patient is in for follow-up, still weak looking, x-ray shows pleural effusion, we'll going to get consult with Dr. Santiago, thoracic ultrasound, patient is not eating as much, she agrees to dietary supplementation, consult were made also to Dr. Feliz, known history of KOBE and BSO however CA 125's elevated, REVIEW OF SYSTEMS Constitutional: No fever, no chills, no night sweats. No weight change. Reports weakness, Reports fatigue Reports lethargy. Reports daytime sleepiness. EENT: No headache. No blurred vision or double vision, no loss of vision. No loss of Hearing, no ringing in the ears, no dizziness. No nasal drainage or congestion. No epistaxis. No sore throat. Lungs: No shortness of breath, cough, no sputum production. No wheezing. Cardiovascular: No chest pain, no lower extremity edema. No palpitations. No paroxysmal nocturnal dyspnea. No orthopnea. No lightheadedness or dizziness. No syncopal episodes. Abdominal: Reports abdominal pain. Reports abdominal distention/bloating. No nausea, vomiting. No diarrhea. Reports constipation. No bloody or tarry stools. Reports loss of appetite. Genitourinary: No dysuria, increased frequency, urgency. No urinary retention. Musculoskeletal: Reports myalgias. Reports muscle weakness, Reports gait dysfunction, no frequent falls. No back pain. No neck pain. Integumentary: No wounds, no lesions. No rash or pruritus. No unusual bruising. No change in hair or nails. Neurologic: No aphasia. No facial droop. Mild change in mentation. No head injury. No headache. No paralysis. No paresthesia. Psychiatric: No depression. No anxiety. No mood swings. Endocrine: No abnormal blood sugars. No weight change. Objective - Vital Signs Vital signs: Vital Signs Temp 98.1 F 11/06/20 14:00 Pulse 112 H 11/06/20 14:00 Resp 18 11/06/20 14:00 BP 99/63 11/06/20 14:00 Pulse Ox 94 L 11/06/20 14:00 Intake & Output 11/05/20 11/06/20 11/06/20 18:59 06:59 18:59 Intake Total 20 600 50 Output Total 400 Balance -380 600 50 Intake: Intake, IV Titration 50 Amount cefTRIAXone 1 gm In 50 Sodium Chloride 0.9% 50 ml @ 100 mls/hr IVPB Q24HR [facility] Rx#:[id number] Oral 20 600 Output: Urine 400 Other: Voiding Method Indwelling Catheter Indwelling Catheter Indwelling Catheter # Voids 2 # Bowel Movements 1 - Constitutional General appearance: Present: disheveled, thin - EENT Eyes: Present: EOMI, PERRLA, poor dentition ENT: Present: NA/AT, normal oropharynx - Neck Neck: Present: normal ROM - Respiratory Respiratory: bilateral: CTA, negative: diminished, dullness - Cardiovascular Rhythm: regular Heart sounds: normal: S1, S2 Abnormal Heart Sounds: Absent: systolic murmur, diastolic murmur, rub, S3 Gallop, S4 Gallop, click, other - Gastrointestinal General gastrointestinal: Present: normal bowel sounds, soft - Integumentary Integumentary: Present: decreased turgor, normal - Neurologic Neurologic: Present: CNII-XII intact - Musculoskeletal Musculoskeletal: Present: generalized weakness, strength equal bilaterally - Psychiatric Psychiatric: Present: A&O x's 3, appropriate affect, intact judgment & insight - Labs CBC & Chem 7: 11/06/20 06:09 11/07/20 11:32 Labs: Abnormal Lab Results - Last 24 Hours (Table) 11/04/20 11/05/20 11/06/20 Range/Units 18:03 20:46 06:09 RBC (4.10-5.20) X 10*6/uL Hgb (12.0-15.0) g/dL Hct (37.2-46.3) % RDW (11.5-14.5) % Absolute Nucleated RBC (0.00-0.00) X 10*3/uL NRBC/100 WBC Diff (0.0-0.0) /100 WBCS PT 13.4 H (9.9-11.9) sec INR 1.25 H (0.90-1.11) Sodium 128 L (135-145) mmol/L Carbon Dioxide 15.7 L (21.6-31.8) mmol/L Anion Gap 12.30 H (4.00-12.00) mmol/L BUN 56.0 H (9.0-27.0) mg/dL Creatinine 2.7 H (0.6-1.5) mg/dL Est GFR (CKD-EPI)AfAm 19.8 L (60.0-200.0) Est GFR (CKD-EPI)NonAf 17.0 L (60.0-200.0) BUN/Creatinine Ratio 20.74 H (12.00-20.00) Ratio Glucose 47 L* (70-110) mg/dL POC Glucose (mg/dL) 104 H (75-99) mg/dL Calcium 7.3 L (8.7-10.3) mg/dL Total Bilirubin (0.3-1.2) mg/dL AST (13-35) U/L Alkaline Phosphatase (41-126) U/L Total Protein (6.2-8.2) g/dL Albumin (3.80-4.90) g/dL Globulin (1.6-3.3) g/dL Albumin/Globulin Ratio (1.60-3.17) g/dL 11/06/20 11/06/20 11/06/20 Range/Units 06:09 06:09 06:52 RBC 3.19 L (4.10-5.20) X 10*6/uL Hgb 9.7 L (12.0-15.0) g/dL Hct 28.0 L (37.2-46.3) % RDW 19.2 H (11.5-14.5) % Absolute Nucleated RBC 0.06 H (0.00-0.00) X 10*3/uL NRBC/100 WBC Diff 0.9 H (0.0-0.0) /100 WBCS PT (9.9-11.9) sec INR (0.90-1.11) Sodium 133 L (135-145) mmol/L Carbon Dioxide 19.7 L (21.6-31.8) mmol/L Anion Gap (4.00-12.00) mmol/L BUN 52.0 H (9.0-27.0) mg/dL Creatinine 2.0 H (0.6-1.5) mg/dL Est GFR (CKD-EPI)AfAm 28.4 L (60.0-200.0) Est GFR (CKD-EPI)NonAf 24.5 L (60.0-200.0) BUN/Creatinine Ratio 26.00 H (12.00-20.00) Ratio Glucose 132 H (70-110) mg/dL POC Glucose (mg/dL) 108 H (75-99) mg/dL Calcium 7.2 L (8.7-10.3) mg/dL Total Bilirubin 0.2 L (0.3-1.2) mg/dL AST 39 H (13-35) U/L Alkaline Phosphatase 264 H (41-126) U/L Total Protein 5.3 L (6.2-8.2) g/dL Albumin 1.90 L (3.80-4.90) g/dL Globulin 3.4 H (1.6-3.3) g/dL Albumin/Globulin Ratio 0.56 L (1.60-3.17) g/dL 11/06/20 Range/Units 11:20 RBC (4.10-5.20) X 10*6/uL Hgb (12.0-15.0) g/dL Hct (37.2-46.3) % RDW (11.5-14.5) % Absolute Nucleated RBC (0.00-0.00) X 10*3/uL NRBC/100 WBC Diff (0.0-0.0) /100 WBCS PT (9.9-11.9) sec INR (0.90-1.11) Sodium (135-145) mmol/L Carbon Dioxide (21.6-31.8) mmol/L Anion Gap (4.00-12.00) mmol/L BUN (9.0-27.0) mg/dL Creatinine (0.6-1.5) mg/dL Est GFR (CKD-EPI)AfAm (60.0-200.0) Est GFR (CKD-EPI)NonAf (60.0-200.0) BUN/Creatinine Ratio (12.00-20.00) Ratio Glucose (70-110) mg/dL POC Glucose (mg/dL) 140 H (75-99) mg/dL Calcium (8.7-10.3) mg/dL Total Bilirubin (0.3-1.2) mg/dL AST (13-35) U/L Alkaline Phosphatase (41-126) U/L Total Protein (6.2-8.2) g/dL Albumin (3.80-4.90) g/dL Globulin (1.6-3.3) g/dL Albumin/Globulin Ratio (1.60-3.17) g/dL Assessment and Plan Plan: SESSMENT AND PLAN 1. Tense ascites, caused by from fatty liver chronic liver disease, no diagnosis of cirrhosis based from liver biopsy at [facility]. Patient is status post paracentesis with removal of 5.3 L on 11/05. Consult with GI appreciated. Lasix 40 mg oral daily and Aldactone 25 mg daily both at noon will be started today. Patient is status post albumin. Continue ceftriaxone. 2. Bilateral pleural effusion, consult with Dr. Santiago pulmonary might need thoracentesis, thoracic ultrasound, ordered 2. Acute kidney injury secondary to ATN over chronic kidney disease stage III on Aldactone on Lasix. Baseline creatinines 1.6 Hepatorenal syndrome is a possibility. Repeat CMP ordered. Avoid nephrotoxic agents. Patient was seen and followed by nephrology. 3. Severe protein calorie malnutrition, with anorexia, failure to thrive, protein supplementation, has significant cachexia. 4. Hyperkalemia secondary to acute kidney injury. Repeat CMP ordered. 5. Decompensated liver failure with recurrent ascitis likely secondary to chronic liver disease. Liver biopsy and peritoneal biopsy has been negative. Cytology negative. TB negative. SAAG less than 1.1 with high protein ascites. Pain management with [place]. 6. Metabolic encephalopathy secondary to liver disease. Lactulose has been ordered by GI. 7. Urinary retention requiring Menezes catheter placement. 8. History of elevated CA 125, with prior history of KOBE/BSO, monitor panel, this is worse than her a previous levels, in the high 30s, currently at 90s, consult Dr. Tomas 9. Atherosclerotic heart disease continue Coreg along with atorvastatin, Aldactone and furosemide 10. Hyperlipidemia continue Crestor at 5 mg daily 11. Chronic iron deficiency anemia related to renal and liver disease. Continue daily CBC. 12. Recurrent depression not on any medication currently 13. Constipation hold stool softener at this moment. 14. CODE STATUS NO code 15. GI prophylaxis on Protonix 16. DVT prophylaxis with heparin every 12 17. Rash. Patient started on IV Solu-Medrol 60 mg every 6 hours and Kenalog cream. DISCHARGE PLAN Return to [facility].
--- NOTE | 2020-11-06 16:34 | P.CNPUL ---
History of Present Illness Consult date: 11/06/20 Reason for consult: dyspnea, hypoxemia, abnormal CXR/CT Chief complaint: Shortness of breath History of present illness: Patient is a 70-year-old female admitted into the hospital with the tensor tight ascites is status post removal of almost 5 L of fluid from the abdomen, small bilateral pleural effusion more than left compared to right was seen was evaluated for a thoracentesis, patient is on 2 L oxygen denies any chest pain, breathing has been stable reviewed data revealed that patient has a past medical history of gout, hypertension, Sjogren syndrome and suspected decompensated liver failure with the recurrent ascites seen almost monthly in the hospital. Her initial presentation was 04/2020 with ascites. Patient was transferred to [facility] for further workup and underwent liver biopsy as well as diagnostic laparoscopy with biopsy negative for Malignancy as well as negative cytology on ascites fluid. She was hospitalized multiple times in June, July and has been requiring paracentesis almost 10-14 days. Lately patient has been a resident of [facility]. Patient had a liver biopsy that suggestive fibrosis but no cirrhosis of liver. She comes back to the emergency room from [facility], secondary to abdominal distention, increasing abdominal discomfort, with tense ascites, patient has weight loss, noted to have some bruising in the upper arms on this current admission, however patient denies any petechiae, or hematomas, and no epistaxis no bleeding in the urine, and in the stool. Review of Systems All systems: negative Past Medical History Past Medical History: Asthma, Deep Vein Thrombosis (DVT), GERD/Reflux, Hyperlipidemia, Hypertension, Osteoarthritis (OA) Additional Past Medical History / Comment(s): Sjorgen's syndrome, sicca syndrome with lung involvement, chronic hepatic failure/ascities with multiple paracentesis/worked up at [facility], abdominal pain, gout, past elevated Ddimer with negative cat scans, ASHD, iron anemia, constipation History of Any Multi-Drug Resistant Organisms: None Reported Past Surgical History: Heart Catheterization, Hysterectomy, Orthopedic Surgery Additional Past Surgical History / Comment(s): Liver bx/diagnostic laparoscopy peritumoral nodule bx both benign, excision gouty deposit 4th R toe, bilateral cataract removals Past Anesthesia/Blood Transfusion Reactions: No Reported Reaction Additional Past Anesthesia/Blood Transfusion Reaction / Comment(s): Post cath woke diaphoretic with vision change and unable to speak. Increased anxiety prior to surgery. Past Psychological History: Anxiety, Depression Additional Psychological History / Comment(s): Pt resides at [facility]. She mostly sits on edge of bed and is very sleepy much of the time. Staff occasionally assist her up into wheelchair. She needs assist with ADLs Smoking Status: Never smoker Past Alcohol Use History: None Reported Additional Past Alcohol Use History / Comment(s): Pt started smoking in 1970 and quit in 2014 Past Drug Use History: None Reported - Past Family History Father Family Medical History: Myocardial Infarction (MD) Medications and Allergies Home Medications Medication Instructions Recorded Confirmed Type Ferrous Sulfate [Iron (65 MG 325 mg PO DAILY@0800 10/21/20 11/03/20 History Elemental)] Ipratropium-Albuterol Nebulize 3 ml INHALATION RT-TID 10/21/20 11/03/20 History [Duoneb 0.5 mg-3 mg/3 ml Soln] Lactose-Reduced Food [Ensure Plus] 120 ml PO TID@0600,0800,209910/21/20 11/03/20 History Maalox Plus Suspension 30 ml PO Q6H PRN 10/21/20 11/03/20 History Magnesium Hydroxide [Milk of 7,200 mg PO Q48H PRN 10/21/20 11/03/20 History Magnesia Concentrate] Ondansetron HCl [Zofran] 4 mg PO Q8H PRN 10/21/20 11/03/20 History Pantoprazole Sodium [Protonix] 40 mg PO DAILY@0600 10/21/20 11/03/20 History Rosuvastatin Calcium [Crestor] 5 mg PO HS@209910/21/20 11/03/20 History SILVER sulfADIAZINE Cream 1 applic TOPICAL BID@0900,209910/21/20 11/03/20 History [Silvadene 1% Cream] Sennosides [Senokot] 17.2 mg PO HS@209910/21/20 11/03/20 History Midodrine [ProAmatine] 5 mg PO AC-TID tab 10/24/20 11/03/20 Rx HYDROcodone/APAP 10-325MG [[place] 1 tab PO Q6HR PRN 11/03/20 11/03/20 History 10-325] Liquacel 30 ml PO BID@1200,1700 11/03/20 11/03/20 History Na Phos,M-B/Na Phos,Di-Ba [Fleet 133 ml RECTAL DAILY PRN 11/03/20 11/03/20 History Adult] bisacodyL [Dulcolax] 10 mg RECTAL DAILY PRN 11/03/20 11/03/20 History Allergies Allergy/AdvReac Type Severity Reaction Status Date / Time amoxicillin trihydrate Allergy Vomiting Verified 11/03/20 19:54 [From Augmentin] erythromycin base Allergy Vomiting Verified 11/03/20 19:54 potassium clavulanate Allergy Vomiting Verified 11/03/20 19:54 [From Augmentin] Physical Exam Vitals: Vital Signs Temp Pulse Pulse Resp BP Pulse Ox 11/06/20 14:00 98.1 F 112 H 18 99/63 94 L 11/06/20 09:09 91 11/06/20 08:56 92 96 11/06/20 07:55 98.7 F 74 18 90/66 89 L 11/06/20 02:19 97.7 F 58 L 96/63 96 11/06/20 02:00 58 L 18 11/05/20 19:57 98.4 F 119 H 106/66 98 11/05/20 19:20 119 H 18 Intake and Output 11/06/20 11/06/20 11/06/20 06:59 14:59 22:59 Intake Total 300 50 Balance 300 50 Intake: Intake, IV Titration 50 Amount cefTRIAXone 1 gm In 50 Sodium Chloride 0.9% 50 ml @ 100 mls/hr IVPB Q24HR [facility] Rx#:[id number] Oral 300 Other: Voiding Method Indwelling Catheter Indwelling Catheter # Voids 2 - Constitutional General appearance: average body habitus, cooperative, disheveled - EENT Eyes: EOMI, PERRLA ENT: normal oropharynx Ears: bilateral: normal - Neck Neck: normal ROM Carotids: bilateral: upstroke normal - Respiratory Respiratory: bilateral: CTA, diminished (At the bases more so on the left side compared to right), negative: dullness, rales, rhonchi, wheezing - Cardiovascular Rhythm: regular Heart sounds: normal: S1, S2 - Gastrointestinal General gastrointestinal: decreased bowel sounds, hyperactive bowel sounds, soft - Neurologic Neurologic: CNII-XII intact - Musculoskeletal Musculoskeletal: gait normal, generalized weakness, strength equal bilaterally Results - Laboratory Findings CBC and BMP: 11/06/20 06:09 11/06/20 06:09 PT/INR, D-dimer PT 13.4 sec (9.9-11.9) H 11/06/20 06:09 INR 1.25 (0.90-1.11) H 11/06/20 06:09 Abnormal lab findings: Abnormal Labs 11/03/20 11/03/20 11/03/20 18:26 18:26 18:26 RBC 3.48 L Hgb 10.7 L Hct 32.0 L RDW 17.1 H Absolute Nucleated RBC Metamyelocytes % Myelocytes % Eosinophils # (Manual) Basophils # 0.3 H NRBC/100 WBC Diff PT 12.3 H INR 1.2 H APTT 32.6 H Sodium 125 L Potassium 5.2 H Carbon Dioxide 19 L Anion Gap BUN 52 H Creatinine 2.55 H Est GFR (CKD-EPI)AfAm Est GFR (CKD-EPI)NonAf BUN/Creatinine Ratio Glucose POC Glucose (mg/dL) Calcium 7.8 L Total Bilirubin AST 50 H Alkaline Phosphatase 322 H Total Protein 6.0 L Albumin 1.9 L Globulin Albumin/Globulin Ratio CA 125 Antigen 11/04/20 11/05/20 11/05/20 18:03 04:53 04:53 RBC 2.68 L Hgb 8.1 L Hct 23.2 L RDW 18.4 H Absolute Nucleated RBC 0.07 H Metamyelocytes % 4 H Myelocytes % 2 H Eosinophils # (Manual) 0 L Basophils # NRBC/100 WBC Diff 0.9 H PT INR APTT Sodium 128 L Potassium Carbon Dioxide 15.7 L Anion Gap 12.30 H BUN 56.0 H Creatinine 2.7 H Est GFR (CKD-EPI)AfAm 19.8 L Est GFR (CKD-EPI)NonAf 17.0 L BUN/Creatinine Ratio 20.74 H Glucose 47 L* POC Glucose (mg/dL) Calcium 7.3 L Total Bilirubin AST Alkaline Phosphatase Total Protein Albumin Globulin Albumin/Globulin Ratio CA 125 Antigen 90.2 H 11/05/20 11/05/20 11/05/20 09:07 10:31 10:55 RBC Hgb Hct RDW Absolute Nucleated RBC Metamyelocytes % Myelocytes % Eosinophils # (Manual) Basophils # NRBC/100 WBC Diff PT INR APTT Sodium 129 L Potassium 5.2 H Carbon Dioxide 18 L Anion Gap BUN 55 H Creatinine 2.40 H Est GFR (CKD-EPI)AfAm Est GFR (CKD-EPI)NonAf BUN/Creatinine Ratio Glucose 54 L POC Glucose (mg/dL) 55 L 61 L Calcium 7.9 L Total Bilirubin AST 51 H Alkaline Phosphatase 332 H Total Protein Albumin 2.4 L Globulin Albumin/Globulin Ratio CA 125 Antigen 11/05/20 11/05/20 11/05/20 11:12 11:13 11:15 RBC Hgb Hct RDW Absolute Nucleated RBC Metamyelocytes % Myelocytes % Eosinophils # (Manual) Basophils # NRBC/100 WBC Diff PT INR APTT Sodium Potassium Carbon Dioxide Anion Gap BUN Creatinine Est GFR (CKD-EPI)AfAm Est GFR (CKD-EPI)NonAf BUN/Creatinine Ratio Glucose POC Glucose (mg/dL) 37 L 37 L 52 L Calcium Total Bilirubin AST Alkaline Phosphatase Total Protein Albumin Globulin Albumin/Globulin Ratio CA 125 Antigen 11/05/20 11/05/20 11/05/20 11:30 12:00 20:46 RBC Hgb Hct RDW Absolute Nucleated RBC Metamyelocytes % Myelocytes % Eosinophils # (Manual) Basophils # NRBC/100 WBC Diff PT INR APTT Sodium Potassium Carbon Dioxide Anion Gap BUN Creatinine Est GFR (CKD-EPI)AfAm Est GFR (CKD-EPI)NonAf BUN/Creatinine Ratio Glucose POC Glucose (mg/dL) 143 H 149 H 104 H Calcium Total Bilirubin AST Alkaline Phosphatase Total Protein Albumin Globulin Albumin/Globulin Ratio CA 125 Antigen 11/06/20 11/06/20 11/06/20 06:09 06:09 06:09 RBC 3.19 L Hgb 9.7 L Hct 28.0 L RDW 19.2 H Absolute Nucleated RBC 0.06 H Metamyelocytes % Myelocytes % Eosinophils # (Manual) Basophils # NRBC/100 WBC Diff 0.9 H PT 13.4 H INR 1.25 H APTT Sodium 133 L Potassium Carbon Dioxide 19.7 L Anion Gap BUN 52.0 H Creatinine 2.0 H Est GFR (CKD-EPI)AfAm 28.4 L Est GFR (CKD-EPI)NonAf 24.5 L BUN/Creatinine Ratio 26.00 H Glucose 132 H POC Glucose (mg/dL) Calcium 7.2 L Total Bilirubin 0.2 L AST 39 H Alkaline Phosphatase 264 H Total Protein 5.3 L Albumin 1.90 L Globulin 3.4 H Albumin/Globulin Ratio 0.56 L CA 125 Antigen 11/06/20 11/06/20 06:52 11:20 RBC Hgb Hct RDW Absolute Nucleated RBC Metamyelocytes % Myelocytes % Eosinophils # (Manual) Basophils # NRBC/100 WBC Diff PT INR APTT Sodium Potassium Carbon Dioxide Anion Gap BUN Creatinine Est GFR (CKD-EPI)AfAm Est GFR (CKD-EPI)NonAf BUN/Creatinine Ratio Glucose POC Glucose (mg/dL) 108 H 140 H Calcium Total Bilirubin AST Alkaline Phosphatase Total Protein Albumin Globulin Albumin/Globulin Ratio CA 125 Antigen - Diagnostic Findings Chest x-ray: report reviewed, image reviewed (Finding as noted above) Assessment and Plan Assessment: Small bilateral pleural effusion left slightly more than the right Cirrhosis of the liver for unclear etiology with portal hypertension Massive ascites requiring frequent large volume paracentesis Acute kidney injury Dyslipidemia Chronic iron deficiency anemia Plan: Will observe closely no plans for thoracentesis as the fluid is abdominal fluid leaked into the chest cavity through the diaphragm would recommend periodic paracentesis and observe closely Time with Patient: Greater than 30
[2020-11-06 16:53] LABS: Glucose,Whole Blood 110 mg/dL (75-99)
[2020-11-06 20:27] LABS: Glucose,Whole Blood 130 mg/dL (75-99)
[2020-11-06] MEDS: SENNOSIDES 8.6 MG TAB PO SCH (20:43)
[2020-11-06] MEDS: ATORVASTATIN 10 MG TAB PO SCH (20:43)
[2020-11-07] MEDS: PANTOPRAZOLE 40 MG TABLET PO SCH ×3 (05:29→07:05)
[2020-11-07 06:44] LABS: Glucose,Whole Blood 78 mg/dL (75-99)
[2020-11-07] MEDS: LACTULOSE 20 GM/30 ML CUP PO SCH (07:03)
[2020-11-07] MEDS: MIDODRINE 5 MG TAB PO SCH ×3 (07:03→15:17)
[2020-11-07] MEDS: FERROUS SULFATE 325 MG TAB PO SCH (07:03)
[2020-11-07] MEDS: TRIAMCINOLONE 0.1% CREAM 80 GM TUBE TOPICAL SCH ×2 (07:05→15:17)
[2020-11-07] MEDS: IPRATROPIUM-ALBUTEROL 3 ML NEB INHALATION SCH ×2 (07:47→11:50)
--- NOTE | 2020-11-07 09:14 | P.PN ---
Subjective Progress Note Date: 11/07/20 Principal diagnosis: Ascites Patient is seen and examined lying in bed sleeping, she is easily arousable. She is denying any abdominal pain, nausea, or vomiting. She states that she did not eat breakfast this morning because she was not hungry.she has had a decreased appetite and poor nutrition intake. She remains afebrile. Discussed with patient that she has advanced liver disease with poor prognosis also affecting her kidneys. Discussed with patient was interested in palliative or hospice care, and she shook her head no. Objective - Vital Signs Vital signs: Vital Signs Temp 98.2 F 11/07/20 07:49 Pulse 98 11/07/20 07:59 Resp 16 11/07/20 07:49 BP 105/70 11/07/20 07:49 Pulse Ox 86 L 11/07/20 07:49 Intake & Output 11/06/20 11/07/20 11/07/20 18:59 06:59 18:59 Intake Total 50 600 50 Output Total 1650 2400 Balance -1600 -1800 50 Intake: Intake, IV Titration 50 50 Amount cefTRIAXone 1 gm In 50 50 Sodium Chloride 0.9% 50 ml @ 100 mls/hr IVPB Q24HR [facility] Rx#:[id number] Oral 600 Output: Urine 1650 2400 Other: Voiding Method Indwelling Catheter Indwelling Catheter # Voids 2 2 # Bowel Movements 1 1 - Labs CBC & Chem 7: 11/06/20 06:09 11/07/20 11:32 Labs: Abnormal Lab Results - Last 24 Hours (Table) 11/06/20 11/06/20 11/06/20 Range/Units 06:09 06:09 06:09 RBC 3.19 L (4.10-5.20) X 10*6/uL Hgb 9.7 L (12.0-15.0) g/dL Hct 28.0 L (37.2-46.3) % RDW 19.2 H (11.5-14.5) % Absolute Nucleated RBC 0.06 H (0.00-0.00) X 10*3/uL NRBC/100 WBC Diff 0.9 H (0.0-0.0) /100 WBCS PT 13.4 H (9.9-11.9) sec INR 1.25 H (0.90-1.11) Sodium 133 L (135-145) mmol/L Carbon Dioxide 19.7 L (21.6-31.8) mmol/L BUN 52.0 H (9.0-27.0) mg/dL Creatinine 2.0 H (0.6-1.5) mg/dL Est GFR (CKD-EPI)AfAm 28.4 L (60.0-200.0) Est GFR (CKD-EPI)NonAf 24.5 L (60.0-200.0) BUN/Creatinine Ratio 26.00 H (12.00-20.00) Ratio Glucose 132 H (70-110) mg/dL POC Glucose (mg/dL) (75-99) mg/dL Calcium 7.2 L (8.7-10.3) mg/dL Total Bilirubin 0.2 L (0.3-1.2) mg/dL AST 39 H (13-35) U/L Alkaline Phosphatase 264 H (41-126) U/L Total Protein 5.3 L (6.2-8.2) g/dL Albumin 1.90 L (3.80-4.90) g/dL Globulin 3.4 H (1.6-3.3) g/dL Albumin/Globulin Ratio 0.56 L (1.60-3.17) g/dL 11/06/20 11/06/20 11/06/20 Range/Units 11:20 16:51 20:25 RBC (4.10-5.20) X 10*6/uL Hgb (12.0-15.0) g/dL Hct (37.2-46.3) % RDW (11.5-14.5) % Absolute Nucleated RBC (0.00-0.00) X 10*3/uL NRBC/100 WBC Diff (0.0-0.0) /100 WBCS PT (9.9-11.9) sec INR (0.90-1.11) Sodium (135-145) mmol/L Carbon Dioxide (21.6-31.8) mmol/L BUN (9.0-27.0) mg/dL Creatinine (0.6-1.5) mg/dL Est GFR (CKD-EPI)AfAm (60.0-200.0) Est GFR (CKD-EPI)NonAf (60.0-200.0) BUN/Creatinine Ratio (12.00-20.00) Ratio Glucose (70-110) mg/dL POC Glucose (mg/dL) 140 H 110 H 130 H (75-99) mg/dL Calcium (8.7-10.3) mg/dL Total Bilirubin (0.3-1.2) mg/dL AST (13-35) U/L Alkaline Phosphatase (41-126) U/L Total Protein (6.2-8.2) g/dL Albumin (3.80-4.90) g/dL Globulin (1.6-3.3) g/dL Albumin/Globulin Ratio (1.60-3.17) g/dL Assessment and Plan (1) Ascites Narrative/Plan: 70-year-old female with multiple medical comorbidities including refractory ascites requiring paracentesis every 10-14 days since initial presentation in 2019. Extensive evaluation including cytology performed on ascites, biopsy of peritoneal nodule negative for malignant process. Patient has had a low SAAG, high-protein ascites and evidence of fibrosis on liver biopsy not consistent with cirrhosis, however decompensated liver disease as been suspected and the patient has been treated with diuretic therapy. Patient was supposed to have outpatient paracentesis today, however yesterday evening was having increased abdominal pain and distention was brought to the emergency department. Plan for therapeutic paracentesis. Diuretics will be deferred to nephrology due to patient's electrolyte imbalance, patient currently has hyponatremia and hyperkalemia. Discussed with patient that she has advanced liver disease affecting her kidneys as well. She's had altered mental status changes. Discussed with her if she would be interested in palliative or hospice care as she has a poor prognosis. Patient shook her head no. Current Visit: Yes Status: Acute Code(s): R18.8 - OTHER ASCITES SNOMED Code(s): 626766377 (2) Abdominal pain Narrative/Plan: Will begin patient on Rocephin 1 g daily for prophylaxis of spontaneous bacterial peritonitis. Current Visit: Yes Status: Acute Code(s): R10.9 - UNSPECIFIED ABDOMINAL PAIN SNOMED Code(s): 55144287 (3) Altered mental status Narrative/Plan: Patient with altered mental status, ammonia less than 9. However will begin patient on lactulose 20 mg twice a day. Current Visit: No Status: Acute Code(s): R41.82 - ALTERED MENTAL STATUS, UNSPECIFIED SNOMED Code(s): 635038165 (4) Acute on chronic renal failure Current Visit: Yes Status: Acute Code(s): N17.9 - ACUTE KIDNEY FAILURE, UNSPECIFIED; N18.9 - CHRONIC KIDNEY DISEASE, UNSPECIFIED SNOMED Code(s): 437887383 (5) Electrolyte imbalance Current Visit: Yes Status: Acute Code(s): E87.8 - OTH DISORDERS OF ELECTROLYTE AND FLUID BALANCE, NEC SNOMED Code(s): 136323965 Plan: 1. Symptomatic and supportive care 2. Patient is status post paracentesis 3. Repeat CBC, BMP daily 4. Nephrology on consult, continue Aldactone 25 mg daily, Lasix 40 mg daily per nephrology 5. Patient may have low sodium diet, will change to pureed diet 6. Continue lactulose 20 g twice a day for altered mental status 7. Continue Rocephin 1 g every 24 hours due to abdominal pain, prophylaxis for possible spontaneous bacterial peritonitis 8. Patient has poor prognosis, would recommend considering Hopsice Care, otherwise she will need outpatient follow-up with outpatient paracentesis likely every 10-14 days 9. Hospice care being discussed with legal guardian per nursing staff Thank you for this consultation, we will continue to follow closely Dr. Venita Melo I agree with the dictator's note, documented as a scribe by Bhavya Rosado.
[2020-11-07] MEDS: HYDROcodone/APAP 10-325MG 1 EACH TAB PO PRN (10:46)
[2020-11-07] MEDS: FUROSEMIDE 40 MG TAB PO SCH (10:46)
[2020-11-07] MEDS: SPIRONOLACTONE 25 MG TAB PO SCH (10:46)
[2020-11-07 11:45] LABS: Glucose,Whole Blood 90 mg/dL (75-99)
[2020-11-07 12:02] LABS: African American GFR (CKD) 29 (>60 ml/min/1.73 sqM); Anion Gap 5 mmol/L; Blood Urea Nitrogen 56 mg/dL (7-17); Carbon Dioxide 22 mmol/L (22-30); Chloride 107 mmol/L (98-107); Glucose 96 mg/dL (74-99); Non-African American GFR(CKD) 25 (>60 ml/min/1.73 sqM); Potassium 4.2 mmol/L (3.5-5.1); Sodium 134 mmol/L (137-145)
--- NOTE | 2020-11-07 12:43 | PN ---
PROGRESS NOTE Patient is seen for followup for acute kidney injury. Patient's renal function has improved. She was initially given IV fluids. Currently maintained on low-dose oral Lasix and Aldactone. Patient has underlying chronic liver disease and recurrent ascites. She has not been eating much. She currently has an indwelling Menezes catheter and 24 hour urine output documented at 4 L. PHYSICAL EXAMINATION: Today blood pressure 105/70, heart rate 89 per minute. Patient is afebrile. Examination of the heart S1, S2. Examination of lungs, decreased breath sounds at the bases. Abdomen is soft, nontender, distended. Examination of lower extremities shows chronic skin changes, peeling of the skin noted. Some erythema noted as well, which appears to be mostly all chronic. [employer] exam shows patient is weak, but moves all 4 extremities. LABS: Not available from today. Labs on 11/06/2020 show sodium 133, potassium 5.2, serum creatinine 2.0. ASSESSMENT: 1. Acute kidney injury acute tubular necrosis associated with hypotension, currently improving. There may have been a component of urine retention. Patient has an indwelling Menezes catheter. She had 4 L of urine output. Repeat labs are pending from today. Renal function continues to improve. 2. Chronic liver disease with recurrent ascites, status post liver biopsy, which showed fatty liver disease. The patient has had paracentesis. 3. Elevated CA-125 with history of abdominal hysterectomy and bilateral salpingo- oophorectomy. 4. Hyponatremia associated with chronic liver disease, now improved. Continue with oral Lasix and spironolactone. 5. Mild hyperkalemia associated with acute kidney injury, possibly urine retention, now improved. Patient is back on Aldactone and tolerating it fairly okay. PLAN: Check labs today. Continue with oral Lasix and Aldactone. Continue with the Menezes catheter for now. Encourage increased oral intake. MMODL / IJN: [id number] /
[2020-11-07 13:47] VITALS: BP 80/40; PULSE 114; RESP 18; TEMP 97.8
--- NOTE | 2020-11-07 17:05 | P.DS ---
Providers Date of admission: 11/04/20 13:38 Attending physician: Lela Van Consults: 11/03/20 20:41 Consult Physician Routine Consulting Provider: Benita Melo Consult Reason/Comments: ascites; needs paracentesis Do you want consulting provider notified?: Yes Consult Physician Routine Consulting Provider: Dana Garg Consult Reason/Comments: Acute on chronic renal failure Do you want consulting provider notified?: Yes 11/06/20 12:08 Consult Physician Routine Consulting Provider: Shine Feliz Consult Reason/Comments: elev ca125 ascites, hx tahbso Do you want consulting provider notified?: Yes 11/06/20 12:15 Consult Physician Routine Consulting Provider: Ji Santiago Consult Reason/Comments: pleural effusion, hypoxemia Do you want consulting provider notified?: Yes Primary care physician: [facility] Course: HISTORY OF PRESENT ILLNESS 70 years old female patient one of my clinic patient with past medical history of gout, hypertension, Sjogren syndrome and suspected decompensated liver failure with the recurrent ascites seen almost monthly in the hospital. Her initial presentation was 04/2024 keep his amount of fluid remaining high-protein ascites. Patient was transferred to [facility] for further workup and underwent liver biopsy as well as diagnostic laparoscopy with biopsy of the peritumoral nodule which all came as negative. Malignancy was ruled out multiple times by cytology from patient's ascites fluid. She was hospitalized multiple times in June, July and has been requiring paracentesis almost 10-14 days. Patient is very well-known to the service and was last seen in the hospital on 09/14 underwent paracentesis on 09/15/20, 6 L were removed and patient was given some albumin. Patient was started on diu retic therapy and was sent to [facility]. Patient had a liver biopsy that suggestive fibrosis but no cirrhosis of liver. Multiple other etiology has been worked up and has come as negative. Patient's presentation is on assumed to be secondary to chronic liver disease. Patient was seen by Dr. Van outpatient and had a syncopal episode during her visit. druing her last admisssion 10/22/20 She was sent to the ER for evaluation patient was found to be hyportensive, 65/42. EKG was obtained that suggested first-degree AV block with no ectopy. No abdominal ST changes or T-wave inversions noted. Patient given 1-1/2 L of IV fluid with improvement of systolic pressures to the low , sodium 121 potassium 5.6 BUN 47 creatinine 2.28 troponin 0.0 2 repeat lactic acid after resuscitation is 1.3 urinalysis is negative for any infection. Chest x-ray suggestive of possible lower lobe infiltrate versus interstitial edema. She comes back to the emergency room from [facility], secondary to abdominal distention, increasing abdominal discomfort, with tense ascites, patient has weight loss, noted to have some bruising in the upper arms on this current admission, however patient denies any petechiae, or hematomas, and no epistaxis no bleeding in the urine, and in the stool. Admission is for tense ascites, with consult to gastroenterology, and Dr. Biggs for repeat abdominal paracentesis Patient's last paracentesis was 10/24/2020. request to repeat ct abdomen pelvis today for monitoring, oral contrast only. creat elevated 11/05: CAT scan of the abdomen and pelvis without contrast completed yesterday revealed cirrhosis with ascites, underlying hepatic steatosis. Bilateral pleural effusions. Difficult to exclude colitis. Anasarca. Patient is status post paracentesis with removal of 5.3 L. She is currently on Rocephin. Patient's abdomen is less distended but continues to complain of significant pain. She also complains of rash. Solu-Medrol 60 mg IV every 6 hours and a Kenalog cream have been ordered. Patient states she is eating very little. We will add in Lasix and Aldactone. Chest x-ray reveals pleural effusions and associated atelectasis, difficult to exclude pneumonia. Menezes catheter was placed due to urinary retention. Patient has been seen and followed by GI and nephrology 11/07: Patient was seen by Dr. Santiago, pulmonary, no plan for thoracentesis, we discussed advanced directives at this time, and patient is agreeable to hospice consultation and management,, however with case management they have informed me that there is still a court guardian that is still being finalized, patient's alert awake and was able to verbalize her current plan, patient's aware that the current medical illness for her is not remediable, palliative treatments on it to be given for abdomen paracentesis, which can continue for palliation purposes, discharge plan to [facility] later today, REVIEW OF SYSTEMS Constitutional: No fever, no chills, no night sweats. No weight change. Reports weakness, Reports fatigue Reports lethargy. Reports daytime sleepiness. EENT: No headache. No blurred vision or double vision, no loss of vision. No loss of Hearing, no ringing in the ears, no dizziness. No nasal drainage or congestion. No epistaxis. No sore throat. Lungs: No shortness of breath, cough, no sputum production. No wheezing. Cardiovascular: No chest pain, no lower extremity edema. No palpitations. No paroxysmal nocturnal dyspnea. No orthopnea. No lightheadedness or dizziness. No syncopal episodes. Abdominal: Reports abdominal pain. Reports abdominal distention/bloating. No nausea, vomiting. No diarrhea. Reports constipation. No bloody or tarry stools. Reports loss of appetite. Genitourinary: No dysuria, increased frequency, urgency. No urinary retention. Musculoskeletal: Reports myalgias. Reports muscle weakness, Reports gait dysfunction, no frequent falls. No back pain. No neck pain. Integumentary: No wounds, no lesions. No rash or pruritus. No unusual bruising. No change in hair or nails. Neurologic: No aphasia. No facial droop. Mild change in mentation. No head injury. No headache. No paralysis. No paresthesia. Psychiatric: No depression. No anxiety. No mood swings. Endocrine: No abnormal blood sugars. No weight change. FINAL DIAGNOSIS 1. Tense ascites, caused by from fatty liver chronic liver disease, no diagnosis of cirrhosis based from liver biopsy at [facility]. Patient is status post paracentesis with removal of 5.3 L on 11/05. Consult with GI appreciated. Lasix 40 mg oral daily and Aldactone 25 mg daily both at noon will be started today. Patient is status post albumin infusion and needed drain 2. Bilateral pleural effusion, consult with Dr. Jack blackmon might need thoracentesis, thoracic ultrasound, ordered, no thoracentesis is needed at this time per recommendation from pulmonary 2. Acute kidney injury secondary to ATN over chronic kidney disease stage III on Aldactone on Lasix. Baseline creatinines 1.6 Hepatorenal syndrome is a possibility. Repeat CMP ordered. Avoid nephrotoxic agents. Patient was seen and followed by nephrology. 3. Autonomic dysfunction Severe protein calorie malnutrition, with anorexia, failure to thrive, protein supplementation, has significant cachexia. In supplementation and needed 3 and 10 3 times a day 4. Hyperkalemia secondary to acute kidney injury. Repeat CMP ordered. 5. Decompensated liver failure with recurrent ascitis likely secondary to chronic liver disease. CA 125 elevated possibly related to ascites, however he has underlying KOBE/BSO, Dr. Feliz consulted, no recommendation at this time, consult available for review. Status post Liver biopsy and peritoneal biopsy has been negative. Cytology negative. TB negative. SAAG less than 1.1 with high protein ascites. Pain management with [facility]. 6. Metabolic encephalopathy secondary to liver disease. Lactulose has been ordered by GI. 7. Urinary retention requiring Menezes catheter placement. Discharge with Menezes catheter, most likely long-term 8. History of elevated CA 125, with prior history of KOBE/BSO, monitor panel, this is worse than her a previous levels, in the high 30s, currently at 90s, consult Dr. Tomas 9. Atherosclerotic heart disease continue Coreg along with atorvastatin, Aldactone and furosemide 10. Hyperlipidemia continue Crestor at 5 mg daily 11. Chronic iron deficiency anemia related to renal and liver disease. Continue daily CBC. 12. Recurrent depression not on any medication currently 13. Constipation hold stool softener at this moment. 14. CODE STATUS NO code 15. GI prophylaxis on Protonix 16. DVT prophylaxis with heparin every 12 17. Rash. Patient started on IV Solu-Medrol 60 mg every 6 hours now resolved, no oral prednisone on discharge and Kenalog cream. Prognosis guarded, life expectancy limited secondary to end stage liver failure and ckd and failure to thrive with anorexia, hospice consultation, per patient wishes on 11/07, however pt has a legal guardian for which it is currently pending for action DISCHARGE PLAN Return to [facility]. Patient Condition at Discharge: Poor Plan - Discharge Summary Discharge Rx Participant: No New Discharge Prescriptions: New Spironolactone [Aldactone] 25 mg PO 1200 tab Lactulose [Cephulac] 20 gm PO BID ml Triamcinolone 0.1% Cream [Kenalog 0.1% Cream] 1 applic TOPICAL TID applic Furosemide [Lasix] 40 mg PO 1200 tab Continue Magnesium Hydroxide [Milk of Magnesia Concentrate] 7,200 mg PO Q48H PRN PRN Reason: Constipation Maalox Plus Suspension 30 ml PO Q6H PRN PRN Reason: upset stomach Lactose-Reduced Food [Ensure Plus] 120 ml PO TID@0600,0800,2100 Ipratropium-Albuterol Nebulize [Duoneb 0.5 mg-3 mg/3 ml Soln] 3 ml INHALATION RT-TID Sennosides [Senokot] 17.2 mg PO HS@2100 Pantoprazole Sodium [Protonix] 40 mg PO DAILY@0600 Midodrine [ProAmatine] 5 mg PO AC-TID tab Na Phos,M-B/Na Phos,Di-Ba [Fleet Adult] 133 ml RECTAL DAILY PRN PRN Reason: Constipation HYDROcodone/APAP 10-325MG [[facility] 10-325] 1 tab PO Q6HR PRN #42 tab PRN Reason: Pain Ondansetron HCl [Zofran] 4 mg PO Q8H PRN PRN Reason: Nausea SILVER sulfADIAZINE Cream [Silvadene 1% Cream] 1 applic TOPICAL BID@0900,2100 bisacodyL [Dulcolax] 10 mg RECTAL DAILY PRN PRN Reason: Constipation Liquacel 30 ml PO BID@1200,1700 Discontinued Rosuvastatin Calcium [Crestor] 5 mg PO HS@2100 Ferrous Sulfate [Iron (65 MG Elemental)] 325 mg PO DAILY@0800 Discharge Medication List Ipratropium-Albuterol Nebulize [Duoneb 0.5 mg-3 mg/3 ml Soln] 3 ml INHALATION RT-TID 10/21/20 [History] Lactose-Reduced Food [Ensure Plus] 120 ml PO TID@0600,0800,209910/21/20 [History] Maalox Plus Suspension 30 ml PO Q6H PRN 10/21/20 [History] Magnesium Hydroxide [Milk of Magnesia Concentrate] 7,200 mg PO Q48H PRN 10/21/20 [History] Ondansetron HCl [Zofran] 4 mg PO Q8H PRN 10/21/20 [History] Pantoprazole Sodium [Protonix] 40 mg PO DAILY@0610/21/20 [History] SILVER sulfADIAZINE Cream [Silvadene 1% Cream] 1 applic TOPICAL BID@0900,209910/21/20 [History] Sennosides [Senokot] 17.2 mg PO HS@209910/21/20 [History] Midodrine [ProAmatine] 5 mg PO AC-TID tab 10/24/20 [Rx] Liquacel 30 ml PO BID@1200,1700 11/03/20 [History] Na Phos,M-B/Na Phos,Di-Ba [Fleet Adult] 133 ml RECTAL DAILY PRN 11/03/20 [History] bisacodyL [Dulcolax] 10 mg RECTAL DAILY PRN 11/03/20 [History] Furosemide [Lasix] 40 mg PO 1200 tab 11/07/20 [Rx] HYDROcodone/APAP 10-325MG [[facility] 10-325] 1 tab PO Q6HR PRN #42 tab 11/07/20 [Rx] Lactulose [Cephulac] 20 gm PO BID ml 11/07/20 [Rx] Spironolactone [Aldactone] 25 mg PO 1200 tab 11/07/20 [Rx] Triamcinolone 0.1% Cream [Kenalog 0.1% Cream] 1 applic TOPICAL TID applic 11/07/20 [Rx] Follow up Appointment(s)/Referral(s): Red Vazquez MD [Primary Care Provider] - 1-2 days Discharge Disposition: TRANSFER TO SNF/ECF
== END 2020-11-07 16:40 | DRG 441 ==
LOC: EC 17:30 → 6NMEDSUR 20:35 → OBSVTOIN 11-04 13:38 → 4SSUR 11-05 20:50
PROVIDERS: ADMIT Family Medicine; ATTEND Family Medicine
PROC: 0W9G3ZX Drainage of Peritoneal Cavity, Percutaneous Approach, Diagnostic (ICD-10-PCS; principal; 2020-11-05)
DX: K76.0 Fatty (change of) liver, not elsewhere classified (principal); K76.7 Hepatorenal syndrome; N17.0 Acute kidney failure with tubular necrosis; E43 Unspecified severe protein-calorie malnutrition; G93.41 Metabolic encephalopathy; R18.8 Other ascites; E87.1 Hypo-osmolality and hyponatremia; E87.2 Acidosis; F33.9 Major depressive disorder, recurrent, unspecified; K76.6 Portal hypertension; R64 Cachexia; J98.11 Atelectasis; J90 Pleural effusion, not elsewhere classified; K74.69 Other cirrhosis of liver; N18.30 Chronic kidney disease, stage 3 unspecified; M35.02 Sjogren syndrome with lung involvement; E78.5 Hyperlipidemia, unspecified; E87.5 Hyperkalemia; E87.70 Fluid overload, unspecified; F41.9 Anxiety disorder, unspecified; I12.9 Hypertensive chronic kidney disease with stage 1 through stage 4 chronic kidney disease, or unspecified chronic kidney disease; I25.10 Atherosclerotic heart disease of native coronary artery without angina pectoris; K21.9 Gastro-esophageal reflux disease without esophagitis; R62.7 Adult failure to thrive; R09.02 Hypoxemia; Z79.899 Other long term (current) drug therapy; M35.00 Sjogren syndrome, unspecified; Z90.710 Acquired absence of both cervix and uterus; Z87.891 Personal history of nicotine dependence; Z86.718 Personal history of other venous thrombosis and embolism; M19.90 Unspecified osteoarthritis, unspecified site; M10.9 Gout, unspecified; K59.00 Constipation, unspecified; J45.909 Unspecified asthma, uncomplicated; G90.9 Disorder of the autonomic nervous system, unspecified; D50.9 Iron deficiency anemia, unspecified
CPT/HCPCS: 36415; 49083; 71045; 74176; 80048; 80053; 82140; 83690; 83735; 85025; 85027; 85610; 85730; 86304; 87635; 93005; 94640; 94760; 96374; 96375; 99285